=== PATIENT | female | born 1940 | race Caucasian/White ===

== ENCOUNTER 2018-06-13 17:37 | Inpatient (IN) | payer MEDICARE, MEDICAID ==
[2018-06-13 19:16] LABS: % BASOPHILS 0.2 % (0.0-2.0); % EOSINOPHILS 0.7 % (0.0-5.0); % MONOCYTES 6.2 % (2.0-10.0); % NEUTROPHILS 67.9 % (40.0-80.0); HEMATOCRIT 42.1 % (41.0-60); HEMOGLOBIN 13.8 gm/dL (12-16); LYMPHOCYTE ABSOLUTE 1.8 Th/cmm (1.5-3.0); MEAN CELL VOLUME 94.1 fl (81-100); MEAN CORPUSCULAR HEMOGLOBIN 30.7 pg (27.0-31.0); MEAN CORPUSCULAR HGB CONC 32.6 pg (28.0-36.0); MEAN PLATELET VOLUME 8.4 fl; MONOCYTE ABSOLUTE 0.4 Th/cmm (0.3-1.0); NEUTROPHILE ABSOLUTE 4.9 Th/cmm (1.8-8.0); PLATELET COUNT 212 Th/cmm (150-400); RED BLOOD COUNT 4.48 Mil/cmm (3.80-5.20); RED CELL DISTRIBUTION WIDTH 12.2 % (11.5-20.0); WHITE BLOOD COUNT 7.1 Th/cmm (4.8-10.8)
--- NOTE | 2018-06-13 19:23 | ED Physician Chart ---
ED Chief Complaint/HPI - Patient Information Date Seen:: 06/13/18 Time Seen:: 18:17 Chief Complaint:: failure to thrive, refuses care & meds History of Present Illness:: failure to thrive, refuses care & meds for 6 months. Allergies:: Allergies Allergy/AdvReac Type Severity Reaction Status Date / Time Penicillins Allergy Unknown Verified 06/13/18 18:16 Vitals:: Vital Signs - 8 hr 06/13/18 18:17 Temp 98.5 F HR 66 RR 18 BP 172/106 O2 Sat % 99 Historian:: Family Member Review:: Nurse's Note Reviewed ED Review of Systems - Review of Systems General/Constitutional: No fever, No chills, Weakness, No diaphoresis, Loss of appetite, Other (smell of extremely poor hygiene) Skin: No skin lesions, No rash, No bruising Head: No headache, No light-headedness Eyes: No loss of vision, No pain, No diplopia ENT: No earache, No nasal drainage, No sore throat, No tinnitus Neck: No neck pain, No swelling, No thyromegaly, No stiffness, No mass noted Cardio Vascular: No chest pain, No palpitations, No PND, No orthopnea, No edema Pulmonary: No SOB, No cough, No sputum, No wheezing GI: No nausea, No vomiting, No diarrhea, No pain, No melena, No hematochezia, No constipation, No hematemesis G/U: No dysuria, No frequency, No hematuria Musculoskeletal: No bone or joint pain, No back pain, No muscle pain Endocrine: No polyuria, No polydipsia Psychiatric: Prior psych history, No depression, No anxiety, No suicidal ideation Hematopoietic: No bruising, No lymphadenopathy Allergic/Immuno: No urticaria, No angioedema Neurological: No syncope, No focal symptoms, No weakness, No paresthesia, No headache, No seizure, No dizziness, No confusion, No vertigo ED Past Medical History - Past Medical History Obtainable: No Past Medical History: HTN, DM, Dementia, Other (Alzheimer's) Family Medical History - Family Member Mother History Unknown: Yes ED Physical Exam - Physical Examination General/Constitutional: Awake Other Gen/Cons comments:: thin. very heavy smell of poor hygiene. agitated. Had to be given Ativan 1 mg IM before she could be examined. ENTIRE EXAM LIMITED BY FACT THAT THE PATIENT DID NOT ALLOW THE SEVERAL LAYERS OF CLOTHING TO BE REMOVED. Head: Atraumatic Eyes: Lids, conjuctiva normal, PERRL, EOMI Skin: Nl inspection ENMT: External ears, nose nl Neck: Nontender, No nuchal rigidity, No stridor Respiratory: Nl effort/Exclusion, Clear to Auscultation, No Wheeze/Rhonchi/Rales Cardio Vascular: RRR, No murmur, gallop, rubs, NL S1 S2 GI: No tenderness/rebounding/guarding, No organomegaly, No hernia, Normal BS's, Nondistended, No mass/bruits, No McBurney tenderness : No CVA tenderness Extremities: No tenderness or effusion, Full ROM, normal strength in all extremities, No edema, Normal digits & nails Neuro/Psych: Alert/oriented, Normal sensory exam, Normal motor strength, No focal deficits Misc: Normal back, No paraspinal tenderness ED Labs/Radiology/EKG Results - Lab Results Results: Laboratory Tests 06/13/18 19:11 WBC 7.1 RBC 4.48 Hgb 13.8 Hct 42.1 MCV 94.1 MCH 30.7 MCHC Differential 32.6 RDW 12.2 Plt Count 212 MPV 8.4 Neutrophils % 67.9 Lymphocytes % 25.0 Monocytes % 6.2 Eosinophils % 0.7 Basophils % 0.2 ED Assessment - Assessment General Assessment: ENTIRE EXAM LIMITED BY FACT THAT THE PATIENT DID NOT ALLOW THE SEVERAL LAYERS OF CLOTHING TO BE REMOVED. SIGN OUT GIVEN TO DR. MARCUS AT 7:15 P.M. ED Septic Shock - . Is Septic Shock (SBP<90, OR Lactate>4 mmol\L) present?: No - <6hrs of presentation: Vital Signs: Vital Signs - 8 hr 06/13/18 18:17 Temp 98.5 F HR 66 RR 18 BP 172/106 O2 Sat % 99 ED Reassessment (Disposition) - Reassessment Reassessment Condition:: Unchanged - Diagnosis Diagnosis:: Failure to thrive Dementia Alzheimer's
[2018-06-13 19:30] LABS: ALB/GLOB RATIO 1.8 (1.0-1.8); ALKALINE PHOSPHATASE 81 U/L (34-104); ANION GAP 10.3 (7.0-16.0); BILIRUBIN,TOTAL 0.5 mg/dL (0.3-1.0); BUN - UREA NITROGEN 15 mg/dL (7-25); CARBON DIOXIDE 30.1 mEq/L (21.0-31.0); CHLORIDE 102 mEq/L (98-107); CREATININE - SERUM 0.6 mg/dL (0.6-1.2); GLUCOSE 142 mg/dL (70-105); MAGNESIUM 2.1 mg/dL (1.9-2.7); PHOSPHOROUS 3.2 mg/dL (2.5-5.0); POTASSIUM SERUM 3.4 mEq/L (3.5-5.1); SGOT 12 U/L (13-39); SGPT/ALT 7 U/L (7-52); SODIUM SERUM 139 mEq/L (136-145); TOTAL PROTEIN,SERUM 6.2 gm/dL (6.0-8.3)
[2018-06-13 23:13] VITALS: BP 151/73
[2018-06-13] MEDS ORDERED: Magnesium Hydroxide (MOM) 30 mL UDC PO PRN (23:31)
[2018-06-13] MEDS ORDERED: Maalox 30 mL Cup PO PRN (23:31)
[2018-06-14 07:29] LABS: CHOLESTEROL 217 mg/dL (<200); HDL -HIGH DENSITY LIPOPROTEIN 56 mg/dL (23-92); TRIGLYCERIDES 149 mg/dL (<150)
[2018-06-14] MEDS: Aspirin 81mg Chewable Tab PO SCH (09:34)
--- NOTE | 2018-06-14 13:04 | Internal Medicine Prog Note ---
Internal Medicine Subjective - Subjective Service Date: 06/14/18 Patient seen and examined:: chart reviewed Patient is:: awake, verbal, confused Per staff patient has:: no adverse event, refusing care Internal Medicine Objective - Results Result Diagrams: 06/13/18 19:11 06/13/18 19:11 Recent Labs: Laboratory Last Values WBC 7.1 Th/cmm (4.8-10.8) 06/13/18 19: RBC 4.48 Mil/cmm (3.80-5.20) 06/13/18 19:11 Hgb 13.8 gm/dL (12-16) 06/13/18 19:11 Hct 42.1 % (41.0-60) 06/13/18 19:11 MCV 94.1 fl (81-100) 06/13/18 19:11 MCH 30.7 pg (27.0-31.0) 06/13/18: MCHC Differential 32.6 pg (28.0-36.0) 06/13/18 19:11 RDW 12.2 % (11.5-20.0) 06/13/18 19:11 Plt Count 212 Th/cmm (150-400) 06/13/18 19:11 MPV 8.4 fl 06/13/18 19:11 Neutrophils % 67.9 % (40.0-80.0) 06/13/18 19:11 Lymphocytes % 25.0 % (20.0-50.0) 06/13/18: Monocytes % 6.2 % (2.0-10.0) 06/13/18: Eosinophils % 0.7 % (0.0-5.0) 06/13/18 19: Basophils % 0.2 % (0.0-2.0) 06/13/18 19:11 Sodium 139 mEq/L (136-145) 06/13/18 19:11 Potassium 3.4 mEq/L (3.5-5.1) L 06/13/18 19:11 Chloride 102 mEq/L (98-107) 06/13/18 19:11 Carbon Dioxide 30.1 mEq/L (21.0-31.0) 06/13/18 19: Anion Gap 10.3 (7.0-16.0) 06/13/18 19:11 BUN 15 mg/dL (7-25) 06/13/18 19:11 Creatinine 0.6 mg/dL (0.6-1.2) 06/13/18 19:11 Est GFR ( Amer) TNP 06/13/18 19:11 Est GFR (Non-Af Amer) TNP 06/13/18 19:11 BUN/Creatinine Ratio 25.0 06/13/18 19:11 Glucose 142 mg/dL (70-105) H 06/13/18 19:11 Calcium 9.0 mg/dL (8.6-10.3) 06/13/18 19:11 Phosphorus 3.2 mg/dL (2.5-5.0) 06/13/18 19:11 Magnesium 2.1 mg/dL (1.9-2.7) 06/13/18 19:11 Total Bilirubin 0.5 mg/dL (0.3-1.0) 06/13/18 19:11 AST 12 U/L (13-39) L 06/13/18 19:11 ALT 7 U/L (7-52) 06/13/18 19:11 Alkaline Phosphatase 81 U/L (34-104) 06/13/18 19:11 Total Protein 6.2 gm/dL (6.0-8.3) 06/13/18 19:11 Albumin 4.0 gm/dL (3.7-5.3) 06/13/18 19:11 Globulin 2.2 gm/dL 06/13/18 19:11 Albumin/Globulin Ratio 1.8 (1.0-1.8) 06/13/18 19:11 Triglycerides 149 mg/dL (<150) 06/14/18 06:50 Cholesterol 217 mg/dL (<200) H 06/14/18 06:50 LDL Cholesterol Direct 143 mg/dL (75-193) 06/14/18 06:50 HDL Cholesterol 56 mg/dL (23-92) 06/14/18 06:50 TSH 0.79 uIU/ml (0.34-5.60) 06/13/18 19:11 - Physical Exam Vitals and I&O: Vital Signs Temp 98.3 F 06/14/18 08:00 Pulse 77 06/14/18 09:34 Resp 18 06/14/18 08:00 BP 152/97 06/14/18 09:34 Pulse Ox 99 06/14/18 08:00 Intake & Output 06/13/18 06/14/18 06/14/18 18:59 06:59 18:59 Intake Total 60 Balance 60 Weight (lbs) 56.699 kg Intake: Oral 60 Other: # Voids 1 # Bowel Movements 0 Weight Source Estimated Active Medications: Current Medications Acetaminophen (Tylenol) 650 mg PO Q4HR PRN PRN Reason: Mild Pain / Temp above 100 Stop: 08/12/18 23:30 Al Hydrox/Mg Hydrox/Simethicone (Maalox) 30 ml PO Q4HR PRN PRN Reason: GI DISTRESS Stop: 08/12/18 23:30 Aspirin (Aspirin Chewable) 81 mg PO DAILY [facility] Stop: 08/13/18 08:59 Clopidogrel Bisulfate (Plavix) 75 mg PO DAILY [facility] Stop: 08/13/18 08:59 Last Admin: 06/14/18 09:34 Dose: 75 mg Donepezil HCl (Aricept) 10 mg PO DAILY [facility] Stop: 08/13/18 08:59 Last Admin: 06/14/18 09:35 Dose: 10 mg Hydrochlorothiazide (Hctz) 25 mg PO DAILY [facility] Stop: 08/13/18 08:59 Last Admin: 06/14/18 09:34 Dose: 25 mg Lisinopril (Zestril) 10 mg PO DAILY [facility] Stop: 08/13/18 08:59 Last Admin: 06/14/18 09:34 Dose: 10 mg Lorazepam (Ativan) 0.5 mg PO Q4HR PRN; Protocol PRN Reason: Agitation Stop: 07/13/18 23:30 Lorazepam (Ativan) 0.5 mg PO DAILY [facility]; Protocol Stop: 08/13/18 08:59 Last Admin: 06/14/18 09:34 Dose: 0.5 mg Magnesium Hydroxide (Milk Of Magnesia) 30 ml PO HS PRN PRN Reason: Constipation Metformin HCl (Glucophage) 500 mg PO BIDWM [facility] Stop: 08/13/18 07:59 Last Admin: 06/14/18 09:00 Dose: 500 mg Simvastatin (Zocor) 20 mg PO DAILY [facility]; Protocol Stop: 08/13/18 08:59 Last Admin: 06/14/18 09:35 Dose: 20 mg Zolpidem Tartrate (Ambien) 5 mg PO HSMR1 PRN PRN Reason: Insomnia Stop: 08/12/18 23:30 General: demented, thin HEENT: PERRLA Neck: Supple, No JVD Cardiovascular: Normal S1, Normal S2 Abdomen: soft, non-tender Extremities: clear Neurological: other (Altered mental Status.) Internal Medicine Assmt/Plan - Assessment Assessment: Internal Medicine Consult Margareth Rucker : 1940 Admit date: 06/13/2018 Date: 06/14/2018 REASON FOR CONSULTATION Patients current complaint is Failure to thrive. Patient has refused care for 6 months. Patient has history of Hypertension, Diabetes, Dementia and Alzheimer s Disease. HISTORY OF PRESENT ILLNESS 78 y/o female patient was admitted to [facility] due to Failure to thrive. Patient has history of Hypertension, Diabetes, Dementia and Alzheimers Disease. Patient was diagnosed with Failure to thrive, Hypertension , Diabetes, Dementia and Alzheimers Disease. Patient will be followed by Dr. Santana and a complete workup will be done. Patient will be treated and monitored. Patient was transferred here on June 13, 2018 for further care management. Review of systems Vitals: Reviewed. General: Normotensive, in no acute distress. Head: Normocephalic, no lesions. Eyes: PERRLA, EOM'S full, conjunctive clear, fundi grossly normal. Neck: Supple, no masses, no thyromegaly, no bruits. Lungs: Clear, no rales, no rhonchi, no wheezes. Heart: RR, no murmurs, no rubs, no gallops. Abdomen: Soft, no tenderness, no masses, BS normal. Musculoskeletal: No joint pain, No edema noted. Psych: Altered Mental Status; Hx of Dementia. Skin: No rash or skin lesions noted. Neurological: Denies headache and loss of consciousness. Past medical history Hypertension, Diabetes, Dementia and Alzheimers Disease. Past surgical history Noncontributory. Medications Please refer to medication reconciliation sheet. Allergies Allergic to Penicillin. Family history Noncontributory. Social history Nonsmoker, No Alcohol use, No drug abuse. Physical Exam- HEENT: Head is normocephalic, atraumatic. NECK: Supple. No JVD. No carotid bruit. CHEST: Bilateral breath sounds. No crackles. No wheezing. HEART: S1, S2 within normal limits. Regular rhythm. No murmur. No gallop. ABDOMEN: soft, non-tender, non-distended. Bowel sounds present. EXTREMITIES: No joint enlargement, No swelling or tenderness. NEUROLOGIC: Altered Mental Status, hx of Dementia. Assessment and Impression Failure to thrive. Hypertension. Diabetes. Dementia. Alzheimers Disease. Plan Continuation of care Continue present meds as directed Monitor vitals, continue B/P meds Accu-check daily, continue DM meds Monitor Diet/Nutritional support Monitor mental status progression Monitor behavioral health status Fall precaution Safety precaution Supportive care Will Monitor patient and continue current treatment plan as ordered. - Plan Plan: Continuation of care Continue present meds as directed Monitor vitals, continue B/P meds Accu-check daily, continue DM meds Monitor Diet/Nutritional support Monitor mental status progression Monitor behavioral health status Fall precaution Safety precaution Supportive care Will Monitor patient and continue current treatment plan as ordered.
--- NOTE | 2018-06-14 14:06 | History and Physical ---
History of Present Illness - HPI Chief Complaint: Failure to thrive. HPI: MERY MORENO MD HISTORY AND PHYSICAL Margareth Rucker : 1940 Admit date: 06/13/2018 Date: 06/14/2018 Chief Complaint Patients current complaint is Failure to thrive. Patient has refused care for 6 months. Patient has history of Hypertension, Diabetes, Dementia and Alzheimer s Disease. History of Present illness 78 y/o female patient was admitted to [facility] due to Failure to thrive. Patient has history of Hypertension, Diabetes, Dementia and Alzheimers Disease. Patient was diagnosed with Failure to thrive, Hypertension , Diabetes, Dementia and Alzheimers Disease. I will follow patient and patient will have a consult with Dr. Santana. Patient will have a complete workup done. Patient will be treated and monitored. Patient was transferred here on June 13, 2018 for further care management. Review of systems Vitals: Reviewed. General: Normotensive, in no acute distress. Head: Normocephalic, no lesions. Eyes: PERRLA, EOM'S full, conjunctive clear, fundi grossly normal. Neck: Supple, no masses, no thyromegaly, no bruits. Lungs: Clear, no rales, no rhonchi, no wheezes. Heart: RR, no murmurs, no rubs, no gallops. Abdomen: Soft, no tenderness, no masses, BS normal. Musculoskeletal: No joint pain, No edema noted. Psych: Altered Mental Status; Hx of Dementia. Skin: No rash or skin lesions noted. Neurological: Denies headache and loss of consciousness. Past medical history Hypertension, Diabetes, Dementia and Alzheimers Disease. Past surgical history Noncontributory. Medications Please refer to medication reconciliation sheet. Allergies Allergic to Penicillin. Family history Noncontributory. Social history Nonsmoker, No Alcohol use, No drug abuse. Physical Exam- HEENT: Head is normocephalic, atraumatic. NECK: Supple. No JVD. No carotid bruit. CHEST: Bilateral breath sounds. No crackles. No wheezing. HEART: S1, S2 within normal limits. Regular rhythm. No murmur. No gallop. ABDOMEN: soft, non-tender, non-distended. Bowel sounds present. EXTREMITIES: No joint enlargement, No swelling or tenderness. NEUROLOGIC: Altered Mental Status, hx of Dementia. Assessment and Impression Failure to thrive. Hypertension. Diabetes. Dementia. Alzheimers Disease. Plan Continuation of care Continue present meds as directed Monitor vitals, continue B/P meds Accu-check daily, continue DM meds Monitor Diet/Nutritional support Monitor mental status progression Monitor behavioral health status Fall precaution Safety precaution Supportive care Will Monitor patient and continue current treatment plan as ordered. Vital Signs: Last Vital Signs Temp 98.3 F 06/14/18 08:00 Pulse 77 06/14/18 09:34 Resp 18 06/14/18 08:00 BP 152/97 06/14/18 09:34 Pulse Ox 99 06/14/18 08:00 Past Medical History Cardiovascular: Report: HTN Pulmonary: Report: No Pertinent Hx [employer]: Report: Dementia Psych: Report: Other (Alzheimer's disease.) Musculoskeletal: Report: No Pain Rheumatologic: Report: No pertinent Hx Infectious Disease: Report: No Pertinent Hx Renal/: Report: No Pertinent Hx Endocrine: Report: Diabetes Dermatology: Report: No Pertinent Hx - Past Surgical History Past Surgical History: No pertinent Hx Family Medical History - Family Member Mother History Unknown: Yes Ethnicity: Unknown Living Status: Unknown - Medications Home Medications: Home Medication Medication Instructions Recorded Type Aspirin 81 mg PO DAILY 06/13/18 History Clopidogrel [Plavix] 75 mg PO DAILY 06/13/18 History Donepezil Hcl [Aricept] 10 mg PO DAILY 06/13/18 History Hydrochlorothiazide [Hctz*] 25 mg PO DAILY 06/13/18 History Lisinopril 10 mg PO DAILY 06/13/18 History Lorazepam [Ativan] 0.5 mg PO DAILY 06/13/18 History Simvastatin [Zocor] 20 mg PO DAILY 06/13/18 History metFORMIN [Glucophage] 500 mg PO BID 06/13/18 History - Allergies Allergies/Adverse Reactions: Allergies Allergy/AdvReac Type Severity Reaction Status Date / Time Penicillins Allergy Unknown Verified 06/13/18 18:16 Physical Exam - Physical Exam HEENT: Report: Pharnyx within normal limits Neck: Report: Within normal limits Cardiovascular Systems: Report: Regular, Rate and Rhythm Respiratory: Report: Breath Sounds are within normal limits Abdomen: Report: Non-tender to palpation Back: Report: Inspection of back is within normal limits. Extremities: Report: Non-tender to palpation. Skin: Report: Color of skin is within normal limits Neuro/Psych: Report: Disoriented to name time or place - Lab Results All Lab Results last 24 hours: Laboratory Results - last 24 hr 06/13/18 06/13/18 06/13/18 19:11 19:11 19:11 WBC 7.1 RBC 4.48 Hgb 13.8 Hct 42.1 MCV 94.1 MCH 30.7 MCHC Differential 32.6 RDW 12.2 Plt Count 212 MPV 8.4 Neutrophils % 67.9 Lymphocytes % 25.0 Monocytes % 6.2 Eosinophils % 0.7 Basophils % 0.2 Sodium 139 Potassium 3.4 L Chloride 102 Carbon Dioxide 30.1 Anion Gap 10.3 BUN 15 Creatinine 0.6 Est GFR ( Amer) TNP Est GFR (Non-Af Amer) TNP BUN/Creatinine Ratio 25.0 Glucose 142 H Calcium 9.0 Phosphorus 3.2 Magnesium 2.1 Total Bilirubin 0.5 AST 12 L ALT 7 Alkaline Phosphatase 81 Total Protein 6.2 Albumin 4.0 Globulin 2.2 Albumin/Globulin Ratio 1.8 Triglycerides Cholesterol LDL Cholesterol Direct HDL Cholesterol TSH 0.79 06/14/18 06:50 WBC RBC Hgb Hct MCV MCH MCHC Differential RDW Plt Count MPV Neutrophils % Lymphocytes % Monocytes % Eosinophils % Basophils % Sodium Potassium Chloride Carbon Dioxide Anion Gap BUN Creatinine Est GFR ( Amer) Est GFR (Non-Af Amer) BUN/Creatinine Ratio Glucose Calcium Phosphorus Magnesium Total Bilirubin AST ALT Alkaline Phosphatase Total Protein Albumin Globulin Albumin/Globulin Ratio Triglycerides 149 Cholesterol 217 H LDL Cholesterol Direct 143 HDL Cholesterol 56 TSH - Plan Plan: Continuation of care Continue present meds as directed Monitor vitals, continue B/P meds Accu-check daily, continue DM meds Monitor Diet/Nutritional support Monitor mental status progression Monitor behavioral health status Fall precaution Safety precaution Supportive care Will Monitor patient and continue current treatment plan as ordered.
--- NOTE | 2018-06-14 14:40 | History and Physical ---
History of Present Illness - HPI Vital Signs: Last Vital Signs Temp 98.3 F 06/14/18 08:00 Pulse 77 06/14/18 09:34 Resp 18 06/14/18 08:00 BP 152/97 06/14/18 09:34 Pulse Ox 99 06/14/18 08:00 Family Medical History - Family Member Mother History Unknown: Yes Ethnicity: Unknown Living Status: Unknown - Medications Home Medications: Home Medication Medication Instructions Recorded Type Aspirin 81 mg PO DAILY 06/13/18 History Clopidogrel [Plavix] 75 mg PO DAILY 06/13/18 History Donepezil Hcl [Aricept] 10 mg PO DAILY 06/13/18 History Hydrochlorothiazide [Hctz*] 25 mg PO DAILY 06/13/18 History Lisinopril 10 mg PO DAILY 06/13/18 History Lorazepam [Ativan] 0.5 mg PO DAILY 06/13/18 History Simvastatin [Zocor] 20 mg PO DAILY 06/13/18 History metFORMIN [Glucophage] 500 mg PO BID 06/13/18 History - Allergies Allergies/Adverse Reactions: Allergies Allergy/AdvReac Type Severity Reaction Status Date / Time Penicillins Allergy Unknown Verified 06/13/18 18:16 - Lab Results All Lab Results last 24 hours: Laboratory Results - last 24 hr 06/13/18 06/13/18 06/13/18 19:11 19:11 19:11 WBC 7.1 RBC 4.48 Hgb 13.8 Hct 42.1 MCV 94.1 MCH 30.7 MCHC Differential 32.6 RDW 12.2 Plt Count 212 MPV 8.4 Neutrophils % 67.9 Lymphocytes % 25.0 Monocytes % 6.2 Eosinophils % 0.7 Basophils % 0.2 Sodium 139 Potassium 3.4 L Chloride 102 Carbon Dioxide 30.1 Anion Gap 10.3 BUN 15 Creatinine 0.6 Est GFR ( Amer) TNP Est GFR (Non-Af Amer) TNP BUN/Creatinine Ratio 25.0 Glucose 142 H Calcium 9.0 Phosphorus 3.2 Magnesium 2.1 Total Bilirubin 0.5 AST 12 L ALT 7 Alkaline Phosphatase 81 Total Protein 6.2 Albumin 4.0 Globulin 2.2 Albumin/Globulin Ratio 1.8 Triglycerides Cholesterol LDL Cholesterol Direct HDL Cholesterol TSH 0.79 06/14/18 06:50 WBC RBC Hgb Hct MCV MCH MCHC Differential RDW Plt Count MPV Neutrophils % Lymphocytes % Monocytes % Eosinophils % Basophils % Sodium Potassium Chloride Carbon Dioxide Anion Gap BUN Creatinine Est GFR ( Amer) Est GFR (Non-Af Amer) BUN/Creatinine Ratio Glucose Calcium Phosphorus Magnesium Total Bilirubin AST ALT Alkaline Phosphatase Total Protein Albumin Globulin Albumin/Globulin Ratio Triglycerides 149 Cholesterol 217 H LDL Cholesterol Direct 143 HDL Cholesterol 56 TSH - Assessment Assessment: Internal Medicine Consult Margareth Rucker : 1940 Admit date: 06/13/2018 Date: 06/14/2018 REASON FOR CONSULTATION Patients current complaint is Failure to thrive. Patient has refused care for 6 months. Patient has history of Hypertension, Diabetes, Dementia and Alzheimer s Disease. HISTORY OF PRESENT ILLNESS 78 y/o female patient was admitted to [facility] due to Failure to thrive. Patient has history of Hypertension, Diabetes, Dementia and Alzheimers Disease. Patient was diagnosed with Failure to thrive, Hypertension , Diabetes, Dementia and Alzheimers Disease. Patient will be followed by Dr. Santana and a complete workup will be done. Patient will be treated and monitored. Patient was transferred here on June 13, 2018 for further care management. Review of systems Vitals: Reviewed. General: Normotensive, in no acute distress. Head: Normocephalic, no lesions. Eyes: PERRLA, EOM'S full, conjunctive clear, fundi grossly normal. Neck: Supple, no masses, no thyromegaly, no bruits. Lungs: Clear, no rales, no rhonchi, no wheezes. Heart: RR, no murmurs, no rubs, no gallops. Abdomen: Soft, no tenderness, no masses, BS normal. Musculoskeletal: No joint pain, No edema noted. Psych: Altered Mental Status; Hx of Dementia. Skin: No rash or skin lesions noted. Neurological: Denies headache and loss of consciousness. Past medical history Hypertension, Diabetes, Dementia and Alzheimers Disease. Past surgical history Noncontributory. Medications Please refer to medication reconciliation sheet. Allergies Allergic to Penicillin. Family history Noncontributory. Social history Nonsmoker, No Alcohol use, No drug abuse. Physical Exam- HEENT: Head is normocephalic, atraumatic. NECK: Supple. No JVD. No carotid bruit. CHEST: Bilateral breath sounds. No crackles. No wheezing. HEART: S1, S2 within normal limits. Regular rhythm. No murmur. No gallop. ABDOMEN: soft, non-tender, non-distended. Bowel sounds present. EXTREMITIES: No joint enlargement, No swelling or tenderness. NEUROLOGIC: Altered Mental Status, hx of Dementia. Assessment and Impression Failure to thrive. Hypertension. Diabetes. Dementia. Alzheimers Disease. Plan Continuation of care Continue present meds as directed Monitor vitals, continue B/P meds Accu-check daily, continue DM meds Monitor Diet/Nutritional support Monitor mental status progression Monitor behavioral health status Fall precaution Safety precaution Supportive care Will Monitor patient and continue current treatment plan as ordered. - Plan Plan: Continuation of care Continue present meds as directed Monitor vitals, continue B/P meds Accu-check daily, continue DM meds Monitor Diet/Nutritional support Monitor mental status progression Monitor behavioral health status Fall precaution Safety precaution Supportive care Will Monitor patient and continue current treatment plan as ordered.
--- NOTE | 2018-06-14 16:22 | History and Physical ---
History of Present Illness - HPI Chief Complaint: DEPRESSION HPI: This is a 78-year old female who is admitted to the geropysch unit due to failure to thrive and depression Vital Signs: Last Vital Signs Temp 98.3 F 06/14/18 08:00 Pulse 77 06/14/18 09:34 Resp 18 06/14/18 08:00 BP 152/97 06/14/18 09:34 Pulse Ox 99 06/14/18 08:00 Past Medical History Other History: HTN, DM, Dementia, Alzheimer's Family Medical History - Family Member Mother History Unknown: Yes Ethnicity: Unknown Living Status: Unknown Social History Smoke: No Alcohol: None Drugs: None Lives: Other (home) - Medications Home Medications: Home Medication Medication Instructions Recorded Type Aspirin 81 mg PO DAILY 06/13/18 History Clopidogrel [Plavix] 75 mg PO DAILY 06/13/18 History Donepezil Hcl [Aricept] 10 mg PO DAILY 06/13/18 History Hydrochlorothiazide [Hctz*] 25 mg PO DAILY 06/13/18 History Lisinopril 10 mg PO DAILY 06/13/18 History Lorazepam [Ativan] 0.5 mg PO DAILY 06/13/18 History Simvastatin [Zocor] 20 mg PO DAILY 06/13/18 History metFORMIN [Glucophage] 500 mg PO BID 06/13/18 History - Allergies Allergies/Adverse Reactions: Allergies Allergy/AdvReac Type Severity Reaction Status Date / Time Penicillins Allergy Unknown Verified 06/13/18 18:16 Review of Systems - Review of Systems Constitutional: Report: No Significant Eyes: Report: No Significant ENT: Report: No Significant Respiratory: Report: No Significant Cardiovascular: Report: No Significant Gastrointestinal: Report: No Significant Neurological: Report: No Significant Physical Exam - Physical Exam HEENT: Report: Ears Nose Throat within normal limits Neck: Report: Within normal limits Cardiovascular Systems: Report: +s1/s2 noted, Regular, Rate and Rhythm Respiratory: Report: Breath Sounds are within normal limits Abdomen: Report: Non-tender to palpation Back: Report: Inspection of back is within normal limits. Skin: Report: Color of skin is within normal limits, Warm, Dry Neuro/Psych: Report: Mood affect is within normal limits - Lab Results All Lab Results last 24 hours: Laboratory Results - last 24 hr 06/13/18 06/13/18 06/13/18 19:11 19:11 19:11 WBC 7.1 RBC 4.48 Hgb 13.8 Hct 42.1 MCV 94.1 MCH 30.7 MCHC Differential 32.6 RDW 12.2 Plt Count 212 MPV 8.4 Neutrophils % 67.9 Lymphocytes % 25.0 Monocytes % 6.2 Eosinophils % 0.7 Basophils % 0.2 Sodium 139 Potassium 3.4 L Chloride 102 Carbon Dioxide 30.1 Anion Gap 10.3 BUN 15 Creatinine 0.6 Est GFR ( Amer) TNP Est GFR (Non-Af Amer) TNP BUN/Creatinine Ratio 25.0 Glucose 142 H Calcium 9.0 Phosphorus 3.2 Magnesium 2.1 Total Bilirubin 0.5 AST 12 L ALT 7 Alkaline Phosphatase 81 Total Protein 6.2 Albumin 4.0 Globulin 2.2 Albumin/Globulin Ratio 1.8 Triglycerides Cholesterol LDL Cholesterol Direct HDL Cholesterol TSH 0.79 06/14/18 06:50 WBC RBC Hgb Hct MCV MCH MCHC Differential RDW Plt Count MPV Neutrophils % Lymphocytes % Monocytes % Eosinophils % Basophils % Sodium Potassium Chloride Carbon Dioxide Anion Gap BUN Creatinine Est GFR ( Amer) Est GFR (Non-Af Amer) BUN/Creatinine Ratio Glucose Calcium Phosphorus Magnesium Total Bilirubin AST ALT Alkaline Phosphatase Total Protein Albumin Globulin Albumin/Globulin Ratio Triglycerides 149 Cholesterol 217 H LDL Cholesterol Direct 143 HDL Cholesterol 56 TSH - Assessment Assessment: htn dm2 dementia alzhiemer's - Plan Plan: monitor glucose closely fall precautions continue current orders
[2018-06-15] MEDS: Aspirin 81mg Chewable Tab PO SCH (09:00)
--- NOTE | 2018-06-15 11:37 | Internal Medicine Prog Note ---
Internal Medicine Subjective - Subjective Service Date: 06/15/18 Patient seen and examined:: chart reviewed Patient is:: awake, verbal, confused Per staff patient has:: no adverse event, no episodes of fall, confused Internal Medicine Objective - Results Result Diagrams: 06/13/18 19:11 06/13/18 19: Recent Labs: Laboratory Last Values WBC 7.1 Th/cmm (4.8-10.8) 06/13/18 19: RBC 4.48 Mil/cmm (3.80-5.20) 06/13/18 19:11 Hgb 13.8 gm/dL (12-16) 06/13/18 19:11 Hct 42.1 % (41.0-60) 06/13/18:11 MCV 94.1 fl (81-100) 06/13/18 19:11 MCH 30.7 pg (27.0-31.0) 06/13/18: MCHC Differential 32.6 pg (28.0-36.0) 06/13/18 19: RDW 12.2 % (11.5-20.0) 06/13/18 19:11 Plt Count 212 Th/cmm (150-400) 06/13/18 19:11 MPV 8.4 fl 06/13/18 19:11 Neutrophils % 67.9 % (40.0-80.0) 06/13/18:11 Lymphocytes % 25.0 % (20.0-50.0) 06/13/18: Monocytes % 6.2 % (2.0-10.0) 06/13/18: Eosinophils % 0.7 % (0.0-5.0) 06/13/18 19: Basophils % 0.2 % (0.0-2.0) 06/13/18 19:11 Sodium 139 mEq/L (136-145) 06/13/18 19:11 Potassium 3.4 mEq/L (3.5-5.1) L 06/13/18 19:11 Chloride 102 mEq/L (98-107) 06/13/18 19:11 Carbon Dioxide 30.1 mEq/L (21.0-31.0) 06/13/18 19: Anion Gap 10.3 (7.0-16.0) 06/13/18 19:11 BUN 15 mg/dL (7-25) 06/13/18 19:11 Creatinine 0.6 mg/dL (0.6-1.2) 06/13/18 19:11 Est GFR ( Amer) TNP 06/13/18 19:11 Est GFR (Non-Af Amer) TNP 06/13/18 19:11 BUN/Creatinine Ratio 25.0 06/13/18 19:11 Glucose 142 mg/dL (70-105) H 06/13/18 19:11 Calcium 9.0 mg/dL (8.6-10.3) 06/13/18 19:11 Phosphorus 3.2 mg/dL (2.5-5.0) 06/13/18 19:11 Magnesium 2.1 mg/dL (1.9-2.7) 06/13/18 19:11 Total Bilirubin 0.5 mg/dL (0.3-1.0) 06/13/18 19:11 AST 12 U/L (13-39) L 06/13/18 19:11 ALT 7 U/L (7-52) 06/13/18 19:11 Alkaline Phosphatase 81 U/L (34-104) 06/13/18 19:11 Total Protein 6.2 gm/dL (6.0-8.3) 06/13/18 19:11 Albumin 4.0 gm/dL (3.7-5.3) 06/13/18 19:11 Globulin 2.2 gm/dL 06/13/18 19:11 Albumin/Globulin Ratio 1.8 (1.0-1.8) 06/13/18 19:11 Triglycerides 149 mg/dL (<150) 06/14/18 06:50 Cholesterol 217 mg/dL (<200) H 06/14/18 06:50 LDL Cholesterol Direct 143 mg/dL (75-193) 06/14/18 06:50 HDL Cholesterol 56 mg/dL (23-92) 06/14/18 06:50 TSH 0.79 uIU/ml (0.34-5.60) 06/13/18 19:11 - Physical Exam Vitals and I&O: Vital Signs Temp 98.1 F 06/15/18 06:33 Pulse 89 06/15/18 06:33 Resp 20 06/15/18 06:33 BP 156/65 06/15/18 06:33 Pulse Ox 95 06/15/18 06:33 Intake & Output 06/14/18 06/15/18 06/15/18 18:59 06:59 18:59 Intake Total 240 Balance 240 Intake: Oral 240 Other: # Voids 3 # Bowel Movements 0 Active Medications: Current Medications Acetaminophen (Tylenol) 650 mg PO Q4HR PRN PRN Reason: Mild Pain / Temp above 100 Stop: 08/12/18 23:30 Al Hydrox/Mg Hydrox/Simethicone (Maalox) 30 ml PO Q4HR PRN PRN Reason: GI DISTRESS Stop: 08/12/18 23:30 Aspirin (Aspirin Chewable) 81 mg PO DAILY [facility] Stop: 08/13/18 08:59 Last Admin: 06/15/18 09:00 Dose: Not Given Clopidogrel Bisulfate (Plavix) 75 mg PO DAILY [facility] Stop: 08/13/18 08:59 Last Admin: 06/15/18 09:00 Dose: Not Given Donepezil HCl (Aricept) 10 mg PO DAILY [facility] Stop: 08/13/18 08:59 Last Admin: 06/15/18 09:00 Dose: Not Given Hydrochlorothiazide (Hctz) 25 mg PO DAILY [facility] Stop: 08/13/18 08:59 Last Admin: 06/15/18 09:00 Dose: Not Given Lisinopril (Zestril) 10 mg PO DAILY [facility] Stop: 08/13/18 08:59 Last Admin: 06/15/18 09:00 Dose: Not Given Lorazepam (Ativan) 0.5 mg PO Q4HR PRN; Protocol PRN Reason: Agitation Stop: 07/13/18 23:30 Last Admin: 06/15/18 00:22 Dose: 0.5 mg Lorazepam (Ativan) 0.5 mg PO DAILY [facility]; Protocol Stop: 08/13/18 08:59 Last Admin: 06/15/18 09:00 Dose: Not Given Magnesium Hydroxide (Milk Of Magnesia) 30 ml PO HS PRN PRN Reason: Constipation Metformin HCl (Glucophage) 500 mg PO BIDWM [facility] Stop: 08/13/18 07:59 Last Admin: 06/15/18 09:00 Dose: Not Given Mirtazapine (Remeron) 7.5 mg PO HS [facility]; Protocol Stop: 08/13/18 20:59 Last Admin: 06/14/18 20:36 Dose: Not Given Simvastatin (Zocor) 20 mg PO DAILY [facility]; Protocol Stop: 08/13/18 08:59 Last Admin: 06/15/18 09:00 Dose: Not Given Zolpidem Tartrate (Ambien) 5 mg PO HSMR1 PRN PRN Reason: Insomnia Stop: 08/12/18 23:30 Last Admin: 06/14/18 21:54 Dose: 5 mg General: weak, lethargic, demented HEENT: PERRLA Neck: Supple, No JVD Lungs: CTAB Cardiovascular: Normal S1, Normal S2 Abdomen: soft, non-tender Extremities: other (General weakness) Neurological: other (Very dis-oriented and confused.) Internal Medicine Assmt/Plan - Assessment Assessment: Depression Failure to thrive. Hypertension. Diabetes. Dementia. Alzheimers Disease. - Plan Plan: Continuation of care Continue present meds as directed Monitor vitals, continue B/P meds Accu-check daily, continue DM meds Monitor Diet/Nutritional support Monitor mental status progression Monitor behavioral health status Fall precaution Safety precaution Supportive care Will Monitor patient and continue present care management
--- NOTE | 2018-06-15 14:59 | Psychiatric Evaluation ---
DATE OF SERVICE: 06/14/2018 JUSTIFICATION FOR HOSPITALIZATION: Refusing care, refusing medications for six months, failure to thrive. She is compliant, not answering. HISTORY OF PRESENT ILLNESS: A 78-year-old female apparently in the hospital, failure to thrive, refusing care, refusing medications for about 6 months, AO to essentially name only, not knowing where she is or what is going on, does not know the day, the week, the month, just staring blankly, laughing inappropriately for no reason, in a Donna chair, mildly restless. PAST PSYCHIATRIC HISTORY: Advanced dementia. FAMILY HISTORY: Noncontributory. SOCIAL HISTORY: Unclear. Her face sheet, patient is coming in from [facility]. MEDICATIONS: Noted. MENTAL STATUS EXAMINATION: Stated age. Fair eye contact. AO to essentially name, not answering any questions, very confused, disoriented, advanced dementia. Poor insight, poor judgment. PROVISIONAL DIAGNOSES: Advanced dementia. Under medical, please see full H and P. ESTIMATED LENGTH OF STAY: 7-10 days. ASSESSMENT: The patient requiring hospitalization, failure to thrive, refusing some care. PLAN: Continue Aricept dosing. Concerns for an unspecified mood disorder, we will initiate low-dose mirtazapine. CONDITIONS FOR DISCHARGE: Improved mood, improved affect, more amenable to care. [facility]# [id number]
[2018-06-16 09:06] LABS: % EOSINOPHILS 0.2 % (0.0-5.0); % LYMPHOCYTES 8.4 % (20.0-50.0); % MONOCYTES 7.1 % (2.0-10.0); % NEUTROPHILS 83.3 % (40.0-80.0); BASOPHILE ABSOLUTE 0.1 Th/cumm (0-0.2); HEMATOCRIT 47.7 % (41.0-60); HEMOGLOBIN 16.4 gm/dL (12-16); LYMPHOCYTE ABSOLUTE 1.2 Th/cmm (1.5-3.0); MEAN CELL VOLUME 92.5 fl (81-100); MEAN CORPUSCULAR HEMOGLOBIN 31.7 pg (27.0-31.0); MEAN CORPUSCULAR HGB CONC 34.3 pg (28.0-36.0); MEAN PLATELET VOLUME 8.4 fl; NEUTROPHILE ABSOLUTE 12.4 Th/cmm (1.8-8.0); PLATELET COUNT 228 Th/cmm (150-400); RED BLOOD COUNT 5.16 Mil/cmm (3.80-5.20); RED CELL DISTRIBUTION WIDTH 12.2 % (11.5-20.0); WHITE BLOOD COUNT 14.7 Th/cmm (4.8-10.8)
[2018-06-16 09:18] LABS: ALB/GLOB RATIO 1.5 (1.0-1.8); ALBUMIN 4.4 gm/dL (3.7-5.3); ALKALINE PHOSPHATASE 89 U/L (34-104); ANION GAP 11.4 (7.0-16.0); BILIRUBIN,TOTAL 0.9 mg/dL (0.3-1.0); BUN - UREA NITROGEN 16 mg/dL (7-25); CALCIUM SERUM 9.5 mg/dL (8.6-10.3); CARBON DIOXIDE 33.3 mEq/L (21.0-31.0); CHLORIDE 96 mEq/L (98-107); CREATININE - SERUM 0.7 mg/dL (0.6-1.2); GLUCOSE 215 mg/dL (70-105); POTASSIUM SERUM 3.7 mEq/L (3.5-5.1); SGOT 14 U/L (13-39); SGPT/ALT 9 U/L (7-52); SODIUM SERUM 137 mEq/L (136-145); TOTAL PROTEIN,SERUM 7.3 gm/dL (6.0-8.3)
[2018-06-16] MEDS: Aspirin 81mg Chewable Tab PO SCH (09:48)
--- NOTE | 2018-06-16 11:41 | Progress Notes ---
DATE: 06/15/2018 SUBJECTIVE: The patient in the hospital, failure to thrive, refusing care, medications for six months, decompensating. Staff noting she one [id number], anxious, disorganized, not really making much sense. Does not know why she is here or what is going on. The patient was somewhat lethargic this morning, concerns that the nighttime medications may be too high of a dose. The patient with history of advanced dementia. Apparently when the patient came to the hospital, she was trying to bite staff. ASSESSMENT: The patient disoriented, confused. PLAN: We will continue to monitor. Continue dosing of Aricept. The patient may have been over sedated due to the mirtazapine dosing as well. PLAN: We will discontinue the Ambien. The patient remains symptomatic, not safe for a lower level of care. JOB# [id number]
== END 2018-06-16 10:50 | disposition short-term general hospital (02) | DRG 57 ==
LOC: ER 17:37 → GERO 21:19 → GERO2 06-14 21:59 → GERO 06-15 17:57
PROVIDERS: ADMIT Psychiatry & Neurology Psychiatry; ATTEND Psychiatry & Neurology Psychiatry
DX: G30.9 Alzheimer's disease, unspecified (principal); F02.81 Dementia in other diseases classified elsewhere, unspecified severity, with behavioral disturbance; R62.7 Adult failure to thrive; I10 Essential (primary) hypertension; E11.9 Type 2 diabetes mellitus without complications; Z79.84 Long term (current) use of oral hypoglycemic drugs; Z88.0 Allergy status to penicillin
CPT/HCPCS: 36415-UA; 80053-TC; 80061-TC; 83036-90; 83735-TC; 84100-TC; 84443-TC; 85025-TC; J2060; Z7610

== ENCOUNTER 2018-06-16 11:04 | Inpatient (IN) | payer MEDICARE, MEDICAID ==
[2018-06-16] MEDS ORDERED: Maalox 30 mL Cup PO PRN (12:55)
[2018-06-16] MEDS ORDERED: Magnesium Hydroxide (MOM) 30 mL UDC PO PRN (12:55)
[2018-06-16] MEDS: Sodium Chloride 0.9% 1,000 ML IV SCH (13:19)
--- NOTE | 2018-06-16 14:45 | Consultation ---
Consult Note - Consult Note Service Date: 06/16/18 Referring Physician: Yuliana Decker Consult Note: PHYSICIAN Consultation Note: Date of Admission: 06/16/18 keren. Zackery Duke M.D. [id number]
[2018-06-16 15:51] LABS: URINE SOURCE CATH
[2018-06-16 15:53] LABS: URINE BILIRUBIN NEGATIVE (NEGATIVE); URINE BLOOD SMALL (NEGATIVE); URINE GLUCOSE (UA) NEGATIVE (NEGATIVE); URINE KETONE NEGATIVE (NEGATIVE); URINE LEUKOCYTE ESTERASE NEGATIVE (NEGATIVE); URINE MICROSCOPIC INDICATED? YES; URINE NITRATE NEGATIVE (NEGATIVE); URINE PH 6.5 (4.6 - 8.0); URINE PROTEIN NEGATIVE (NEGATIVE)
[2018-06-16 16:24] LABS: URINE CLARITY CLEAR (CLEAR); URINE COLOR YELLOW
[2018-06-16 16:25] LABS: URINE BACTERIA FEW /hpf (NONE SEEN); URINE EPITHELIAL CELLS FEW /lpf (FEW); URINE RBC NONE SEEN /hpf (0-5); URINE WBC 0-2 /hpf (0-5)
[2018-06-16] MEDS: Levofloxacin 500mg/100mL 500 MG/100 ML BAG IV SCH (16:51)
[2018-06-16 17:47] VITALS: BP 121/72
--- NOTE | 2018-06-16 20:49 | Internal Medicine Prog Note ---
Internal Medicine Objective - Results Recent Labs: Laboratory Last Values Whole Bld Lactic Acid 1.45 mmol/L (0.60-1.99) 06/16/18 16:35 Urine Source CATH 06/16/18 15:30 Urine Color YELLOW 06/16/18 15:30 Urine Clarity CLEAR (CLEAR) 06/16/18 15:30 Urine pH 6.5 (4.6 - 8.0) 06/16/18 15:30 Ur Specific [place] <= 1.005 (1.005-1.030) 06/16/18 15:30 Urine Protein NEGATIVE mg/dL (NEGATIVE) 06/16/18 15:30 Urine Glucose (UA) NEGATIVE mg/dL (NEGATIVE) 06/16/18 15:30 Urine Ketones NEGATIVE mg/dL (NEGATIVE) 06/16/18 15:30 Urine Blood SMALL (NEGATIVE) H 06/16/18 15:30 Urine Nitrate NEGATIVE (NEGATIVE) 06/16/18 15:30 Urine Bilirubin NEGATIVE (NEGATIVE) 06/16/18 15:30 Urine Urobilinogen 2.0 E.U./dL (0.2 - 1.0) 06/16/18 15:30 Ur Leukocyte Esterase NEGATIVE (NEGATIVE) 06/16/18 15:30 Urine RBC NONE SEEN /hpf (0-5) 06/16/18 15:30 Urine WBC 0-2 /hpf (0-5) 06/16/18 15:30 Ur Epithelial Cells FEW /lpf (FEW) 06/16/18 15:30 Urine Bacteria FEW /hpf (NONE SEEN) 06/16/18 15:30 - Physical Exam Vitals and I&O: Vital Signs Temp 97.3 F 06/16/18 20:00 Pulse 117 06/16/18 20:00 Resp 18 06/16/18 20:00 BP 179/74 06/16/18 20:00 Pulse Ox 97 06/16/18 20:00 Intake & Output 06/16/18 06/16/18 06/17/18 06:59 18:59 06:59 Other: Weight Source Bedscale Active Medications: Current Medications Acetaminophen (Tylenol) 650 mg PO Q4HR PRN PRN Reason: Mild Pain / Temp above 100 Stop: 08/15/18 12:54 Al Hydrox/Mg Hydrox/Simethicone (Maalox) 30 ml PO Q4HR PRN PRN Reason: GI DISTRESS Stop: 08/15/18 12:54 Aspirin (Aspirin Chewable) 81 mg PO DAILY [facility] Stop: 08/16/18 08:59 Clopidogrel Bisulfate (Plavix) 75 mg PO DAILY [facility] Stop: 08/16/18 08:59 Donepezil HCl (Aricept) 10 mg PO DAILY [facility] Stop: 08/16/18 08:59 Hydrochlorothiazide (Hctz) 25 mg PO DAILY [facility] Stop: 08/16/18 08:59 Sodium Chloride (Nacl 0.9%) 1,000 mls @ 150 mls/hr IV .Q6H40M [facility] Stop: 08/15/18 13:14 Last Admin: 06/16/18 13:19 Dose: 150 mls/hr Levofloxacin (Levaquin Pb) 500 mg in 100 mls @ 100 mls/hr IV Q24HR [facility] Stop: 08/15/18 16:59 Last Admin: 06/16/18 16:51 Dose: 100 mls/hr Lisinopril (Zestril) 10 mg PO DAILY [facility] Stop: 08/16/18 08:59 Lorazepam (Ativan) 0.5 mg PO DAILY [facility]; Protocol Stop: 08/16/18 08:59 Magnesium Hydroxide (Milk Of Magnesia) 30 ml PO HS PRN PRN Reason: Constipation Stop: 08/15/18 12:54 Metformin HCl (Glucophage) 500 mg PO BIDWM [facility] Stop: 08/15/18 17:59 Last Admin: 06/16/18 17:54 Dose: 500 mg Mirtazapine (Remeron) 15 mg PO HS [facility]; Protocol Stop: 08/15/18 20:59 Simvastatin (Zocor) 20 mg PO DAILY [facility]; Protocol Stop: 08/16/18 08:59
--- NOTE | 2018-06-17 01:34 | Consultation ---
DATE OF CONSULTATION: 06/16/2018 INFECTIOUS DISEASE CONSULTATION REFERRING PHYSICIAN: Dr. Decker. REASON FOR CONSULTATION: Leukocytosis. HISTORY OF PRESENT ILLNESS: The patient is a 78-year-old female with a past medical history of hypertension, diabetes mellitus type 2, Alzheimer dementia, presented to the ER for failure to thrive. The patient was admitted to Geropsych Unit for psych issues. Today, she developed tachycardia at heart rate of 121 and WBC count of 14,700. The patient was transferred to Medical/Surgical Unit today for further evaluation and management. Blood cultures ordered. UA and urine culture ordered. ID consult was called. PAST MEDICAL HISTORY: As mentioned above, diabetes mellitus type 2, hypertension, dementia, cachexia, failure to thrive. PAST SURGICAL HISTORY: Not available. MEDICATIONS: As per medication reconciliation sheet. No antibiotic at this time. ALLERGIES: PENICILLIN. SOCIAL HISTORY: The patient lives at nursing facility. No history of smoking, alcohol, or drug use. FAMILY HISTORY: Noncontributory. REVIEW OF SYSTEMS: Unable to obtain. No fever, no chills. PHYSICAL EXAMINATION: VITAL SIGNS: Current vital signs shows temperature 98.1, pulse 121, respirations 17, blood pressure 158/92. GENERAL: The patient is comfortable, cachectic, not in acute distress. HEENT: Head is normocephalic, atraumatic. Oral cavity moist, pink tongue. Eyes: No pallor, no icterus. Pupils PERRLA, EOMI. NECK: Supple, no JVD, no carotid bruit. Trachea in midline. CHEST: Bilateral breath sounds. No crackles or wheezing. HEART: S1, S2 within normal limits. Regular rhythm. No murmur, no gallop. ABDOMEN: Soft, nontender, nondistended. Bowel sounds present. EXTREMITIES: No cyanosis, no clubbing, no edema. NEUROLOGIC: Able to open eyes, but aphasic. Confused. LABORATORY CORREIA: Current lab shows WBC count is 14,700, hemoglobin 16.4, hematocrit 47.7, platelets are 228,000, neutrophils 83%. Sodium 137, potassium 3.7, chloride 96, bicarbonate is 33, BUN is 16, creatinine 0.7, glucose is 215. IMPRESSION: 1. Leukocytosis. 2. Tachycardia. 3. Rule out sepsis. RECOMMENDATIONS: We will start Levaquin empirically. Sepsis workup will be performed. Check lactic acid. Thank you, Dr. Decker for involving me in taking care of this patient. JOB# [id number]
[2018-06-17 06:35] LABS: % BASOPHILS 0.3 % (0.0-2.0); % EOSINOPHILS 0.4 % (0.0-5.0); % LYMPHOCYTES 9.7 % (20.0-50.0); % MONOCYTES 10.5 % (2.0-10.0); % NEUTROPHILS 79.1 % (40.0-80.0); HEMOGLOBIN 15.2 gm/dL (12-16); LYMPHOCYTE ABSOLUTE 1.2 Th/cmm (1.5-3.0); MEAN CORPUSCULAR HEMOGLOBIN 31.4 pg (27.0-31.0); MEAN CORPUSCULAR HGB CONC 33.7 pg (28.0-36.0); MEAN PLATELET VOLUME 8.9 fl; MONOCYTE ABSOLUTE 1.3 Th/cmm (0.3-1.0); NEUTROPHILE ABSOLUTE 9.9 Th/cmm (1.8-8.0); PLATELET COUNT 211 Th/cmm (150-400); RED BLOOD COUNT 4.84 Mil/cmm (3.80-5.20); WHITE BLOOD COUNT 12.4 Th/cmm (4.8-10.8)
[2018-06-17 06:53] LABS: ALB/GLOB RATIO 1.5 (1.0-1.8); ALKALINE PHOSPHATASE 76 U/L (34-104); ANION GAP 12.6 (7.0-16.0); BILIRUBIN,TOTAL 1.3 mg/dL (0.3-1.0); BUN - UREA NITROGEN 10 mg/dL (7-25); CALCIUM SERUM 9.3 mg/dL (8.6-10.3); CARBON DIOXIDE 28.9 mEq/L (21.0-31.0); CHLORIDE 99 mEq/L (98-107); CREATININE - SERUM 0.6 mg/dL (0.6-1.2); GLUCOSE 180 mg/dL (70-105); POTASSIUM SERUM 3.5 mEq/L (3.5-5.1); SGOT 14 U/L (13-39); SGPT/ALT 8 U/L (7-52); SODIUM SERUM 137 mEq/L (136-145); TOTAL PROTEIN,SERUM 6.6 gm/dL (6.0-8.3)
--- NOTE | 2018-06-17 08:56 | Diagnostic Imaging Report ---
Portable chest x-ray HISTORY: Cough Allowing for portable technique, the heart size is normal. A 5 mm calcified nodule is noted in the right upper lobe. Findings consistent with old granulomatous disease. No acute pulmonary parenchymal processes. No hilar or mediastinal abnormalities. Vascular calcification noted. IMPRESSION: 1. No acute abnormalities 2. 5 mm calcified nodule within the right lobe consistent with old granulomatous disease 3. Atherosclerotic vascular changes
--- NOTE | 2018-06-17 09:30 | Progress Notes ---
DATE: 06/16/2018 SUBJECTIVE: Chart reviewed and the patient interviewed. Also discussed the patient's condition with the staff and reviewed records and labs. The patient is still severely confused and restless. The patient also is still in irritable mood and anxious and easily agitated. Also, her affect is labile and she still has difficulty sleeping all night. She also was trying to get off the gurney chair when I was trying to talk to her. On the other hand, the patient is compliant with taking her medications with no side effects of medications. ASSESSMENT: The patient is still confused and is still in irritable mood. TREATMENT PLAN: We will continue to monitor her behavior and her condition closely. Also, we will increase Remeron to 15 mg at bedtime and continue Aricept to 10 mg every day and we will continue to monitor behavior and condition closely. JOB# [id number]
[2018-06-17] MEDS: Aspirin 81mg Chewable Tab PO SCH (10:01)
[2018-06-17] MEDS ORDERED: Probiotic Screen MC PRN (12:58)
[2018-06-17] MEDS: Levofloxacin 500mg/100mL 500 MG/100 ML BAG IV SCH (19:45)
[2018-06-18] MEDS: Sodium Chloride 0.9% 1,000 ML IV SCH ×2 (06:11→16:49)
[2018-06-18 06:29] LABS: % BASOPHILS 0.2 % (0.0-2.0); % EOSINOPHILS 0.3 % (0.0-5.0); % LYMPHOCYTES 11.7 % (20.0-50.0); % MONOCYTES 11.1 % (2.0-10.0); % NEUTROPHILS 76.7 % (40.0-80.0); HEMATOCRIT 42.9 % (41.0-60); HEMOGLOBIN 14.3 gm/dL (12-16); LYMPHOCYTE ABSOLUTE 1.5 Th/cmm (1.5-3.0); MEAN CELL VOLUME 94.4 fl (81-100); MEAN CORPUSCULAR HEMOGLOBIN 31.4 pg (27.0-31.0); MEAN CORPUSCULAR HGB CONC 33.3 pg (28.0-36.0); MEAN PLATELET VOLUME 9.1 fl; MONOCYTE ABSOLUTE 1.4 Th/cmm (0.3-1.0); PLATELET COUNT 223 Th/cmm (150-400); RED BLOOD COUNT 4.54 Mil/cmm (3.80-5.20); RED CELL DISTRIBUTION WIDTH 12.2 % (11.5-20.0); WHITE BLOOD COUNT 12.9 Th/cmm (4.8-10.8)
[2018-06-18 06:48] LABS: ANION GAP 12.7 (7.0-16.0); BUN - UREA NITROGEN 10 mg/dL (7-25); CALCIUM SERUM 9.2 mg/dL (8.6-10.3); CARBON DIOXIDE 29.9 mEq/L (21.0-31.0); CHLORIDE 98 mEq/L (98-107); CREATININE - SERUM 0.6 mg/dL (0.6-1.2); GLUCOSE 192 mg/dL (70-105); POTASSIUM SERUM 3.6 mEq/L (3.5-5.1); SODIUM SERUM 137 mEq/L (136-145)
[2018-06-18] MEDS: Lactobacillus Rhamnosus GG 15 Billion CFU CAP.SPRINK PO SCH (09:21)
[2018-06-18] MEDS: Aspirin 81mg Chewable Tab PO SCH (09:24)
--- NOTE | 2018-06-18 09:52 | History & Physical ---
ADMIT DATE: 06/18/2018 CHIEF COMPLAINT: Tachycardia. HISTORY OF PRESENT ILLNESS: This is a 78-year-old female who was originally admitted from Geropsych Unit. Unfortunately, the patient developed fever and tachycardia with a white count of 12,000. Hence, the patient was transferred to medical/surgical unit for further management. REVIEW OF SYSTEMS: GENERAL: This is a 78-year-old female. No fever. Positive weakness. HEAD: No headache. No dizziness. EYES: No eye pain or blurring of vision. NECK: No neck pain, no nuchal rigidity. CHEST: No chest pain or palpitation. PULMONARY: No shortness of breath, no coughing. GASTROINTESTINAL: No constipation, no diarrhea, no abdominal pain. MUSCULOSKELETAL: No clubbing. No cyanosis. No joint pain. No muscle pain. Positive muscle weakness. SOCIAL HISTORY: The patient was admitted from the psychiatric unit prior to hospitalization. PAST SURGICAL HISTORY: Unremarkable. PSYCHIATRIC HISTORY: Includes dementia. PAST MEDICAL HISTORY: Includes hypertension, coronary artery disease, diabetes, hyperlipidemia. FAMILY HISTORY: Unremarkable. PHYSICAL EXAMINATION: VITAL SIGNS: Temperature 97.8, heart rate of 102, blood pressure 118/87, respirations of 18, and 96% on room air. GENERAL: This is a 78-year-old female that appears as stated in no acute distress. HEENT: Head is atraumatic, normocephalic. Eyes: Bilateral conjunctivae are clear. Bilateral pupils are equally round and reactive. NECK: Supple. No JVD. CARDIOVASCULAR: S1 and S2, without murmur. PULMONARY: Clear to auscultation. GASTROINTESTINAL: Soft and nontender without guarding. Positive bowel sounds. MUSCULOSKELETAL: No clubbing. No cyanosis noted. ASSESSMENT: 1. Leukocytosis. 2. Rule out sepsis. 3. Hypertension. 4. Dementia. 5. Coronary artery disease. 6. Diabetes. 7. Hyperlipidemia. PLAN: We will admit the patient to Med/Surg Unit. We will follow up with ID doctor and psychiatrist to monitor the patient's condition and behavior. We will do medication reconciliation accordingly. Treatment plans were discussed with the patient's nurse. Treatment plans were discussed with Dr. Decker. The patient's son, Marin was called to give an update. JOB# [id number]
[2018-06-18] MEDS: Levofloxacin 500mg/100mL 500 MG/100 ML BAG IV SCH (17:44)
--- NOTE | 2018-06-18 18:58 | Infectious Disease Prog Note ---
Infectious Disease Subjective - Review of Systems Service Date: 06/18/18 Subjective: There is no new change, no fever Infectious Disease Objective - Results Result Diagrams: 06/18/18 05:40 06/18/18 05:40 Recent Labs: Laboratory Last Values WBC 12.9 Th/cmm (4.8-10.8) H 06/18/18 05:40 RBC 4.54 Mil/cmm (3.80-5.20) 06/18/18 05:40 Hgb 14.3 gm/dL (12-16) 06/18/18 05:40 Hct 42.9 % (41.0-60) 06/18/18 05:40 MCV 94.4 fl (81-100) 06/18/18 05:40 MCH 31.4 pg (27.0-31.0) H 06/18/18 05:40 MCHC Differential 33.3 pg (28.0-36.0) 06/18/18 05:40 RDW 12.2 % (11.5-20.0) 06/18/18 05:40 Plt Count 223 Th/cmm (150-400) 06/18/18 05:40 MPV 9.1 fl 06/18/18 05:40 Neutrophils % 76.7 % (40.0-80.0) 06/18/18 05:40 Lymphocytes % 11.7 % (20.0-50.0) L 06/18/18 05:40 Monocytes % 11.1 % (2.0-10.0) H 06/18/18 05:40 Eosinophils % 0.3 % (0.0-5.0) 06/18/18 05:40 Basophils % 0.2 % (0.0-2.0) 06/18/18 05:40 Sodium 137 mEq/L (136-145) 06/18/18 05:40 Potassium 3.6 mEq/L (3.5-5.1) 06/18/18 05:40 Chloride 98 mEq/L (98-107) 06/18/18 05:40 Carbon Dioxide 29.9 mEq/L (21.0-31.0) 06/18/18 05:40 Anion Gap 12.7 (7.0-16.0) 06/18/18 05:40 BUN 10 mg/dL (7-25) 06/18/18 05:40 Creatinine 0.6 mg/dL (0.6-1.2) 06/18/18 05:40 Est GFR ( Amer) TNP 06/18/18 05:40 Est GFR (Non-Af Amer) TNP 06/18/18 05:40 BUN/Creatinine Ratio 16.7 06/18/18 05:40 Glucose 192 mg/dL (70-105) H 06/18/18 05:40 POC Glucose 149 MG/DL (70 - 105) H 06/18/18 09:27 Whole Bld Lactic Acid 1.45 mmol/L (0.60-1.99) 06/16/18 16:35 Calcium 9.2 mg/dL (8.6-10.3) 06/18/18 05:40 Total Bilirubin 1.3 mg/dL (0.3-1.0) H 06/17/18 05:58 AST 14 U/L (13-39) 06/17/18 05:58 ALT 8 U/L (7-52) 06/17/18 05:58 Alkaline Phosphatase 76 U/L (34-104) 06/17/18 05:58 Total Protein 6.6 gm/dL (6.0-8.3) 06/17/18 05:58 Albumin 4.0 gm/dL (3.7-5.3) 06/17/18 05:58 Globulin 2.6 gm/dL 06/17/18 05:58 Albumin/Globulin Ratio 1.5 (1.0-1.8) 06/17/18 05:58 Urine Source CATH 06/16/18 15:30 Urine Color YELLOW 06/16/18 15:30 Urine Clarity CLEAR (CLEAR) 06/16/18 15:30 Urine pH 6.5 (4.6 - 8.0) 06/16/18 15:30 Ur Specific [place] <= 1.005 (1.005-1.030) 06/16/18 15:30 Urine Protein NEGATIVE mg/dL (NEGATIVE) 06/16/18 15:30 Urine Glucose (UA) NEGATIVE mg/dL (NEGATIVE) 06/16/18 15:30 Urine Ketones NEGATIVE mg/dL (NEGATIVE) 06/16/18 15:30 Urine Blood SMALL (NEGATIVE) H 06/16/18 15:30 Urine Nitrate NEGATIVE (NEGATIVE) 06/16/18 15:30 Urine Bilirubin NEGATIVE (NEGATIVE) 06/16/18 15:30 Urine Urobilinogen 2.0 E.U./dL (0.2 - 1.0) 06/16/18 15:30 Ur Leukocyte Esterase NEGATIVE (NEGATIVE) 06/16/18 15:30 Urine RBC NONE SEEN /hpf (0-5) 06/16/18 15:30 Urine WBC 0-2 /hpf (0-5) 06/16/18 15:30 Ur Epithelial Cells FEW /lpf (FEW) 06/16/18 15:30 Urine Bacteria FEW /hpf (NONE SEEN) 06/16/18 15:30 - Physical Exam Vitals and I&O: Vital Signs Temp 97.9 F 06/18/18 15:53 Pulse 89 06/18/18 15:53 Resp 18 06/18/18 15:53 BP 129/78 06/18/18 15:53 Pulse Ox 97 06/18/18 15:53 Intake & Output 06/17/18 06/18/18 06/18/18 18:59 06:59 18:59 Intake Total 0 300 1000 Balance 0 300 1000 Weight (lbs) 56.699 kg 53.779 kg Intake: Intake, IV Amount 100 1000 Levofloxacin 500mg/100mL 100 500 mg In 100 ml @ 100 mls/hr IV Q24HR [facility] Rx#: [id number] Sodium Chloride 0.9% 1, 1000 000 ml @ 150 mls/hr IV . Q6H40M [facility] Rx#:[id number] Oral 0 200 Other: # Voids 2 # Bowel Movements 0 Weight Source Bedscale Bedscale Active Medications: Current Medications Acetaminophen (Tylenol) 650 mg PO Q4HR PRN PRN Reason: Mild Pain / Temp above 100 Stop: 08/15/18 12:54 Last Admin: 06/18/18 16:49 Dose: 650 mg Al Hydrox/Mg Hydrox/Simethicone (Maalox) 30 ml PO Q4HR PRN PRN Reason: GI DISTRESS Stop: 08/15/18 12:54 Aspirin (Aspirin Chewable) 81 mg PO DAILY [facility] Stop: 08/16/18 08:59 Last Admin: 06/18/18 09:24 Dose: 81 mg Clopidogrel Bisulfate (Plavix) 75 mg PO DAILY [facility] Stop: 08/16/18 08:59 Last Admin: 06/18/18 09:24 Dose: 75 mg Donepezil HCl (Aricept) 10 mg PO DAILY [facility] Stop: 08/16/18 08:59 Last Admin: 06/18/18 09:24 Dose: 10 mg Hydrochlorothiazide (Hctz) 25 mg PO DAILY [facility] Stop: 08/16/18 08:59 Last Admin: 06/18/18 09:23 Dose: 25 mg Sodium Chloride (Nacl 0.9%) 1,000 mls @ 150 mls/hr IV .Q6H40M [facility] Stop: 08/15/18 13:14 Last Admin: 06/18/18 16:49 Dose: 150 mls/hr Levofloxacin (Levaquin Pb) 500 mg in 100 mls @ 100 mls/hr IV Q24HR [facility] Stop: 08/15/18 16:59 Last Admin: 06/18/18 17:44 Dose: 100 mls/hr Lactobacillus Rhamnosus (Culturelle 15b) 1 each PO DAILY [facility] Stop: 08/17/18 08:59 Last Admin: 06/18/18 09:21 Dose: 1 each Lisinopril (Zestril) 10 mg PO DAILY [facility] Stop: 08/16/18 08:59 Last Admin: 06/18/18 09:24 Dose: 10 mg Lorazepam (Ativan) 0.5 mg PO DAILY [facility]; Protocol Stop: 08/16/18 08:59 Last Admin: 06/18/18 09:23 Dose: 0.5 mg Lorazepam (Ativan) 1 mg PO Q4HR PRN; Protocol PRN Reason: Agitation Stop: 08/15/18 21:28 Last Admin: 06/16/18 21:40 Dose: 1 mg Magnesium Hydroxide (Milk Of Magnesia) 30 ml PO HS PRN PRN Reason: Constipation Stop: 08/15/18 12:54 Metformin HCl (Glucophage) 500 mg PO BIDWM [facility] Stop: 08/15/18 17:59 Last Admin: 06/18/18 09:29 Dose: Not Given Mirtazapine (Remeron) 15 mg PO HS [facility]; Protocol Stop: 08/15/18 20:59 Last Admin: 06/17/18 23:30 Dose: 15 mg Miscellaneous (Probiotic Screen) 1 ea MC PRN PRN PRN Reason: PROTOCOL Stop: 08/16/18 12:57 Simvastatin (Zocor) 20 mg PO DAILY [facility]; Protocol Stop: 08/16/18 08:59 Last Admin: 06/18/18 09:24 Dose: 20 mg General: no acute distress, well developed, well nourished HEENT: atraumatic, normocephalic, PERRLA Neck: supple, no thyromegaly Cardiovascular: S1S2, regular Lungs: clear to auscultation bilaterally, clear to percussion Abdomen: soft, no tender, no distended, no rebound Extremities: no cyanosis, no clubbing Neurological: awake, alert, oriented Skin: intact Infectious Disease Assmt/Plan - Assessment Assessment: Lekocytosis. - Plan Plan: cpm. Nutritional Asmnt/Malnutr-PDOC - Dietary Evaluation Malnutrition Findings (Please click <Entered> for more info): Nutritional Asmnt/Malnutrition Start: 06/17/18 16: 33 Text: Status: Complete Freq: Protocol: Document 06/17/18 16:34 LCHENG (Rec: 06/17/18 16:52 LCHENG [email or web address]) Nutritional Asmnt/Malnutrition Patient General Information Nutritional Screening High Risk Diagnosis dehydration Pertinent Medical Hx/Surgical Hx HTN, DM, dementia, alzhemers Subjective Information Pt seen sleeping in bed at time of visit d/t medication per RN. Current Diet Order/ Nutrition Support CCHO 60-gm, mech soft, low sodium Pertinent Medications culturelle, levaquin, glucophage, remeron, nacl 0.9% Pertinent Labs 06/17 Glucose 180, POC 141 Nutritional Hx/Data Height 1.57 m Height (Calculated Centimeters) 157.5 Current Weight (lbs) 56.699 kg Weight (Calculated Kilograms) 56.7 Weight (Calculated Grams) 78358.0 [place] Body Weight 110 Body Mass Index (BMI) 22.8 Weight Status Approriate GI Symptoms GI Symptoms None Last BM not indicated Difficult in: None Skin Integrity/Comment: intact Current %PO Poor (25-49%) Estimated Nutritional Goals BEE in Kcals: Using Current wt Calories/Kcals/Kg 25-30 Kcals Calculated 2387-6695 Protein: Using Current wt Protein g/k-1.2 Protein Calculated 57-68 Fluid: ml 1425-1710ml (1ml/kcal) Nutritional Problem 1. Problem Problem altered nutrition related labs Etiology hyperglycemia Signs/Symptoms: glucose 180 Malnutrition Alert Is there a minimum of two criteria No selected? Query Text:Check all the applicable criteria. A minimum of two criteria are recommended for diagnosis of either severe or non-severe malnutrition. Malnutrition Related to Morbid Obesity Malnutrition related to morbid obesity No Intervention/Recommendation Comments 1. Continue with [facility] soft low sodium CCHO 60gm diet as ordered. Nurses to assist pt with meals as needed. 2. Monitor PO intake, wt, labs and skin integrity 3. F/U as high risk in 2-3 days Expected Outcomes/Goals Expected Outcomes/Goals 1. PO intake to meet at least 75% of nutritional needs. 2. Wt stability, skin to remain intact, labs to approach WNL.
[2018-06-19] MEDS: Sodium Chloride 0.9% 1,000 ML IV SCH ×3 (04:57→15:14)
[2018-06-19 05:23] LABS: % BASOPHILS 0.1 % (0.0-2.0); % EOSINOPHILS 0.3 % (0.0-5.0); % LYMPHOCYTES 10.9 % (20.0-50.0); % MONOCYTES 8.7 % (2.0-10.0); HEMATOCRIT 42.1 % (41.0-60); LYMPHOCYTE ABSOLUTE 1.2 Th/cmm (1.5-3.0); MEAN CELL VOLUME 95.1 fl (81-100); MEAN CORPUSCULAR HEMOGLOBIN 31.5 pg (27.0-31.0); MEAN CORPUSCULAR HGB CONC 33.2 pg (28.0-36.0); MEAN PLATELET VOLUME 8.5 fl; PLATELET COUNT 238 Th/cmm (150-400); RED BLOOD COUNT 4.43 Mil/cmm (3.80-5.20); RED CELL DISTRIBUTION WIDTH 12.1 % (11.5-20.0); WHITE BLOOD COUNT 11.2 Th/cmm (4.8-10.8)
[2018-06-19 05:39] LABS: ANION GAP 10.8 (7.0-16.0); BUN - UREA NITROGEN 11 mg/dL (7-25); CARBON DIOXIDE 30.7 mEq/L (21.0-31.0); CHLORIDE 100 mEq/L (98-107); CREATININE - SERUM 0.6 mg/dL (0.6-1.2); GLUCOSE 211 mg/dL (70-105); POTASSIUM SERUM 3.5 mEq/L (3.5-5.1); SODIUM SERUM 138 mEq/L (136-145)
[2018-06-19 05:40] LABS: ALB/GLOB RATIO 1.2 (1.0-1.8); ALBUMIN 3.5 gm/dL (3.7-5.3); ALKALINE PHOSPHATASE 71 U/L (34-104); BILIRUBIN,TOTAL 0.9 mg/dL (0.3-1.0); CALCIUM SERUM 9.2 mg/dL (8.6-10.3); SGOT 11 U/L (13-39); SGPT/ALT 9 U/L (7-52); TOTAL PROTEIN,SERUM 6.4 gm/dL (6.0-8.3)
[2018-06-19] MEDS: Aspirin 81mg Chewable Tab PO SCH (09:16)
[2018-06-19] MEDS: Lactobacillus Rhamnosus GG 15 Billion CFU CAP.SPRINK PO SCH (09:17)
--- NOTE | 2018-06-19 09:21 | Internal Medicine Prog Note ---
Internal Medicine Subjective - Subjective Patient seen and examined:: chart reviewed Patient is:: awake, other (admitted for fever tachycardia r/o sepsis) Internal Medicine Objective - Results Result Diagrams: 06/19/18 05:10 06/19/18 05:10 Recent Labs: Laboratory Last Values WBC 11.2 Th/cmm (4.8-10.8) H 06/19/18 05:10 RBC 4.43 Mil/cmm (3.80-5.20) 06/19/18 05:10 Hgb 14.0 gm/dL (12-16) 06/19/18 05:10 Hct 42.1 % (41.0-60) 06/19/18 05:10 MCV 95.1 fl (81-100) 06/19/18 05:10 MCH 31.5 pg (27.0-31.0) H 06/19/18 05:10 MCHC Differential 33.2 pg (28.0-36.0) 06/19/18 05:10 RDW 12.1 % (11.5-20.0) 06/19/18 05:10 Plt Count 238 Th/cmm (150-400) 06/19/18 05:10 MPV 8.5 fl 06/19/18 05:10 Neutrophils % 80.0 % (40.0-80.0) 06/19/18 05:10 Lymphocytes % 10.9 % (20.0-50.0) L 06/19/18 05:10 Monocytes % 8.7 % (2.0-10.0) 06/19/18 05:10 Eosinophils % 0.3 % (0.0-5.0) 06/19/18 05:10 Basophils % 0.1 % (0.0-2.0) 06/19/18 05:10 Sodium 138 mEq/L (136-145) 06/19/18 05:10 Potassium 3.5 mEq/L (3.5-5.1) 06/19/18 05:10 Chloride 100 mEq/L (98-107) 06/19/18 05:10 Carbon Dioxide 30.7 mEq/L (21.0-31.0) 06/19/18 05:10 Anion Gap 10.8 (7.0-16.0) 06/19/18 05:10 BUN 11 mg/dL (7-25) 06/19/18 05:10 Creatinine 0.6 mg/dL (0.6-1.2) 06/19/18 05:10 Est GFR ( Amer) TNP 06/19/18 05:10 Est GFR (Non-Af Amer) TNP 06/19/18 05:10 BUN/Creatinine Ratio 18.3 06/19/18 05:10 Glucose 211 mg/dL (70-105) H 06/19/18 05:10 POC Glucose 149 MG/DL (70 - 105) H 06/18/18 09:27 Whole Bld Lactic Acid 1.45 mmol/L (0.60-1.99) 06/16/18 16:35 Calcium 9.2 mg/dL (8.6-10.3) 06/19/18 05:10 Total Bilirubin 0.9 mg/dL (0.3-1.0) 06/19/18 05:10 AST 11 U/L (13-39) L 06/19/18 05:10 ALT 9 U/L (7-52) 06/19/18 05:10 Alkaline Phosphatase 71 U/L (34-104) 06/19/18 05:10 Total Protein 6.4 gm/dL (6.0-8.3) 06/19/18 05:10 Albumin 3.5 gm/dL (3.7-5.3) L 06/19/18 05:10 Globulin 2.9 gm/dL 06/19/18 05:10 Albumin/Globulin Ratio 1.2 (1.0-1.8) 06/19/18 05:10 Urine Source CATH 06/16/18 15:30 Urine Color YELLOW 06/16/18 15:30 Urine Clarity CLEAR (CLEAR) 06/16/18 15:30 Urine pH 6.5 (4.6 - 8.0) 06/16/18 15:30 Ur Specific [place] <= 1.005 (1.005-1.030) 06/16/18 15:30 Urine Protein NEGATIVE mg/dL (NEGATIVE) 06/16/18 15:30 Urine Glucose (UA) NEGATIVE mg/dL (NEGATIVE) 06/16/18 15:30 Urine Ketones NEGATIVE mg/dL (NEGATIVE) 06/16/18 15:30 Urine Blood SMALL (NEGATIVE) H 06/16/18 15:30 Urine Nitrate NEGATIVE (NEGATIVE) 06/16/18 15:30 Urine Bilirubin NEGATIVE (NEGATIVE) 06/16/18 15:30 Urine Urobilinogen 2.0 E.U./dL (0.2 - 1.0) 06/16/18 15:30 Ur Leukocyte Esterase NEGATIVE (NEGATIVE) 06/16/18 15:30 Urine RBC NONE SEEN /hpf (0-5) 06/16/18 15:30 Urine WBC 0-2 /hpf (0-5) 06/16/18 15:30 Ur Epithelial Cells FEW /lpf (FEW) 06/16/18 15:30 Urine Bacteria FEW /hpf (NONE SEEN) 06/16/18 15:30 - Physical Exam Vitals and I&O: Vital Signs Temp 97.4 F 06/19/18 08:00 Pulse 92 06/19/18 09:15 Resp 18 06/19/18 08:00 BP 159/58 06/19/18 09:16 Pulse Ox 96 06/19/18 08:00 Intake & Output 06/18/18 06/19/18 06/19/18 18:59 06:59 18:59 Intake Total 1000 1002.5 Balance 1000 1002.5 Intake: Intake, IV Amount 1000 1002.5 Sodium Chloride 0.9% 1, 1000 1002.5 000 ml @ 150 mls/hr IV . Q6H40M [facility] Rx#:[id number] Active Medications: Current Medications Acetaminophen (Tylenol) 650 mg PO Q4HR PRN PRN Reason: Mild Pain / Temp above 100 Stop: 08/15/18 12:54 Last Admin: 06/19/18 01:08 Dose: 650 mg Al Hydrox/Mg Hydrox/Simethicone (Maalox) 30 ml PO Q4HR PRN PRN Reason: GI DISTRESS Stop: 08/15/18 12:54 Aspirin (Aspirin Chewable) 81 mg PO DAILY [facility] Stop: 08/16/18 08:59 Last Admin: 06/19/18 09:16 Dose: 81 mg Clopidogrel Bisulfate (Plavix) 75 mg PO DAILY [facility] Stop: 08/16/18 08:59 Last Admin: 06/19/18 09:16 Dose: 75 mg Donepezil HCl (Aricept) 10 mg PO DAILY [facility] Stop: 08/16/18 08:59 Last Admin: 06/19/18 09:16 Dose: 10 mg Hydrochlorothiazide (Hctz) 25 mg PO DAILY [facility] Stop: 08/16/18 08:59 Last Admin: 06/19/18 09:16 Dose: 25 mg Sodium Chloride (Nacl 0.9%) 1,000 mls @ 150 mls/hr IV .Q6H40M [facility] Stop: 08/15/18 13:14 Last Admin: 06/19/18 04:58 Dose: 150 mls/hr Levofloxacin (Levaquin Pb) 500 mg in 100 mls @ 100 mls/hr IV Q24HR [facility] Stop: 08/15/18 16:59 Last Admin: 06/18/18 17:44 Dose: 100 mls/hr Lactobacillus Rhamnosus (Culturelle 15b) 1 each PO DAILY [facility] Stop: 08/17/18 08:59 Last Admin: 06/19/18 09:17 Dose: 1 each Lisinopril (Zestril) 10 mg PO DAILY [facility] Stop: 08/16/18 08:59 Last Admin: 06/19/18 09:15 Dose: 10 mg Lorazepam (Ativan) 0.5 mg PO DAILY [facility]; Protocol Stop: 08/16/18 08:59 Last Admin: 06/19/18 09:17 Dose: Not Given Lorazepam (Ativan) 1 mg PO Q4HR PRN; Protocol PRN Reason: Agitation Stop: 08/15/18 21:28 Last Admin: 06/16/18 21:40 Dose: 1 mg Magnesium Hydroxide (Milk Of Magnesia) 30 ml PO HS PRN PRN Reason: Constipation Stop: 08/15/18 12:54 Metformin HCl (Glucophage) 500 mg PO BIDWM [facility] Stop: 08/15/18 17:59 Last Admin: 06/19/18 09:16 Dose: 500 mg Mirtazapine (Remeron) 15 mg PO HS [facility]; Protocol Stop: 08/15/18 20:59 Last Admin: 06/19/18 01:10 Dose: 15 mg Miscellaneous (Probiotic Screen) 1 ea MC PRN PRN PRN Reason: PROTOCOL Stop: 08/16/18 12:57 Simvastatin (Zocor) 20 mg PO DAILY [facility]; Protocol Stop: 08/16/18 08:59 Last Admin: 06/19/18 09:16 Dose: 20 mg General: weak HEENT: NC/AT Neck: Supple Lungs: CTAB Cardiovascular: RRR, Normal S1, Normal S2 Abdomen: soft Extremities: clear Neurological: no change Internal Medicine Assmt/Plan - Assessment Assessment: leukocytosis r/o sepsis htn dementia cd dm hyperlipidemia - Plan Plan: as per order sheet labs vitals antibiotics as per ID Nutritional Asmnt/Malnutr-PDOC - Dietary Evaluation Malnutrition Findings (Please click <Entered> for more info): Nutritional Asmnt/Malnutrition Start: 06/17/18 16: 33 Text: Status: Complete Freq: Protocol: Document 06/17/18 16:34 LCHENG (Rec: 06/17/18 16:52 LCHENG [email or web address]) Nutritional Asmnt/Malnutrition Patient General Information Nutritional Screening High Risk Diagnosis dehydration Pertinent Medical Hx/Surgical Hx HTN, DM, dementia, alzhemers Subjective Information Pt seen sleeping in bed at time of visit d/t medication per RN. Current Diet Order/ Nutrition Support CCHO 60-gm, mech soft, low sodium Pertinent Medications culturelle, levaquin, glucophage, remeron, nacl 0.9% Pertinent Labs 06/17 Glucose 180, POC 141 Nutritional Hx/Data Height 1.57 m Height (Calculated Centimeters) 157.5 Current Weight (lbs) 56.699 kg Weight (Calculated Kilograms) 56.7 Weight (Calculated Grams) 43134.0 [place] Body Weight 110 Body Mass Index (BMI) 22.8 Weight Status Approriate GI Symptoms GI Symptoms None Last BM not indicated Difficult in: None Skin Integrity/Comment: intact Current %PO Poor (25-49%) Estimated Nutritional Goals BEE in Kcals: Using Current wt Calories/Kcals/Kg 25-30 Kcals Calculated 1497-2160 Protein: Using Current wt Protein g/k-1.2 Protein Calculated 57-68 Fluid: ml 1425-1710ml (1ml/kcal) Nutritional Problem 1. Problem Problem altered nutrition related labs Etiology hyperglycemia Signs/Symptoms: glucose 180 Malnutrition Alert Is there a minimum of two criteria No selected? Query Text:Check all the applicable criteria. A minimum of two criteria are recommended for diagnosis of either severe or non-severe malnutrition. Malnutrition Related to Morbid Obesity Malnutrition related to morbid obesity No Intervention/Recommendation Comments 1. Continue with mech soft low sodium CCHO 60gm diet as ordered. Nurses to assist pt with meals as needed. 2. Monitor PO intake, wt, labs and skin integrity 3. F/U as high risk in 2-3 days Expected Outcomes/Goals Expected Outcomes/Goals 1. PO intake to meet at least 75% of nutritional needs. 2. Wt stability, skin to remain intact, labs to approach WNL.
[2018-06-19] MEDS: Levofloxacin 500mg/100mL 500 MG/100 ML BAG IV SCH (17:32)
[2018-06-20] MEDS: Sodium Chloride 0.9% 1,000 ML IV SCH (00:22)
[2018-06-20 05:13] LABS: % BASOPHILS 0.3 % (0.0-2.0); % EOSINOPHILS 0.5 % (0.0-5.0); % LYMPHOCYTES 14.4 % (20.0-50.0); % MONOCYTES 10.2 % (2.0-10.0); % NEUTROPHILS 74.6 % (40.0-80.0); EOSINOPHILE ABSOLUTE 0.1 Th/cmm (0.1-0.4); HEMATOCRIT 40.6 % (41.0-60); HEMOGLOBIN 13.4 gm/dL (12-16); LYMPHOCYTE ABSOLUTE 1.5 Th/cmm (1.5-3.0); MEAN CELL VOLUME 95.2 fl (81-100); MEAN CORPUSCULAR HEMOGLOBIN 31.3 pg (27.0-31.0); MEAN CORPUSCULAR HGB CONC 32.9 pg (28.0-36.0); MEAN PLATELET VOLUME 8.4 fl; MONOCYTE ABSOLUTE 1.1 Th/cmm (0.3-1.0); NEUTROPHILE ABSOLUTE 7.6 Th/cmm (1.8-8.0); PLATELET COUNT 260 Th/cmm (150-400); RED BLOOD COUNT 4.27 Mil/cmm (3.80-5.20); WHITE BLOOD COUNT 10.3 Th/cmm (4.8-10.8)
[2018-06-20 05:49] LABS: ALB/GLOB RATIO 1.2 (1.0-1.8); ALBUMIN 3.5 gm/dL (3.7-5.3); ALKALINE PHOSPHATASE 70 U/L (34-104); BILIRUBIN,TOTAL 0.6 mg/dL (0.3-1.0); BUN - UREA NITROGEN 10 mg/dL (7-25); CALCIUM SERUM 9.1 mg/dL (8.6-10.3); CARBON DIOXIDE 31.3 mEq/L (21.0-31.0); CHLORIDE 98 mEq/L (98-107); CREATININE - SERUM 0.5 mg/dL (0.6-1.2); GLUCOSE 216 mg/dL (70-105); POTASSIUM SERUM 3.3 mEq/L (3.5-5.1); SGOT 9 U/L (13-39); SGPT/ALT 8 U/L (7-52); SODIUM SERUM 137 mEq/L (136-145); TOTAL PROTEIN,SERUM 6.5 gm/dL (6.0-8.3)
[2018-06-20] MEDS ORDERED: Potassium Chloride 20 mEq ER Tab PO ONE (08:47)
[2018-06-20] MEDS: Lactobacillus Rhamnosus GG 15 Billion CFU CAP.SPRINK PO SCH (09:50)
[2018-06-20] MEDS: Aspirin 81mg Chewable Tab PO SCH (09:51)
--- NOTE | 2018-06-20 10:20 | Internal Medicine Prog Note ---
Internal Medicine Subjective - Subjective Service Date: 06/20/18 Patient seen and examined:: with staff, chart reviewed Patient is:: awake, verbal, talking, other (admitted for fever tachycardia r/o sepsis) Patient Complaints of:: other (weakness) Per staff patient has:: no adverse event, no episodes of fall Internal Medicine Objective - Results Result Diagrams: 06/20/18 05:00 06/20/18 05:00 Recent Labs: Laboratory Last Values WBC 10.3 Th/cmm (4.8-10.8) 06/20/18 05:00 RBC 4.27 Mil/cmm (3.80-5.20) 06/20/18 05:00 Hgb 13.4 gm/dL (12-16) 06/20/18 05:00 Hct 40.6 % (41.0-60) L 06/20/18 05:00 MCV 95.2 fl (81-100) 06/20/18 05:00 MCH 31.3 pg (27.0-31.0) H 06/20/18 05:00 MCHC Differential 32.9 pg (28.0-36.0) 06/20/18 05:00 RDW 12.0 % (11.5-20.0) 06/20/18 05:00 Plt Count 260 Th/cmm (150-400) 06/20/18 05:00 MPV 8.4 fl 06/20/18 05:00 Neutrophils % 74.6 % (40.0-80.0) 06/20/18 05:00 Lymphocytes % 14.4 % (20.0-50.0) L 06/20/18 05:00 Monocytes % 10.2 % (2.0-10.0) H 06/20/18 05:00 Eosinophils % 0.5 % (0.0-5.0) 06/20/18 05:00 Basophils % 0.3 % (0.0-2.0) 06/20/18 05:00 Sodium 137 mEq/L (136-145) 06/20/18 05:00 Potassium 3.3 mEq/L (3.5-5.1) L 06/20/18 05:00 Chloride 98 mEq/L (98-107) 06/20/18 05:00 Carbon Dioxide 31.3 mEq/L (21.0-31.0) H 06/20/18 05:00 Anion Gap 11.0 (7.0-16.0) 06/20/18 05:00 BUN 10 mg/dL (7-25) 06/20/18 05:00 Creatinine 0.5 mg/dL (0.6-1.2) L 06/20/18 05:00 Est GFR ( Amer) TNP 06/20/18 05:00 Est GFR (Non-Af Amer) TNP 06/20/18 05:00 BUN/Creatinine Ratio 20.0 06/20/18 05:00 Glucose 216 mg/dL (70-105) H 06/20/18 05:00 POC Glucose 165 MG/DL (70 - 105) H 06/19/18 17:44 Whole Bld Lactic Acid 1.45 mmol/L (0.60-1.99) 06/16/18 16:35 Calcium 9.1 mg/dL (8.6-10.3) 06/20/18 05:00 Total Bilirubin 0.6 mg/dL (0.3-1.0) 06/20/18 05:00 AST 9 U/L (13-39) L 06/20/18 05:00 ALT 8 U/L (7-52) 06/20/18 05:00 Alkaline Phosphatase 70 U/L (34-104) 06/20/18 05:00 Total Protein 6.5 gm/dL (6.0-8.3) 06/20/18 05:00 Albumin 3.5 gm/dL (3.7-5.3) L 06/20/18 05:00 Globulin 3.0 gm/dL 06/20/18 05:00 Albumin/Globulin Ratio 1.2 (1.0-1.8) 06/20/18 05:00 Urine Source CATH 06/16/18 15:30 Urine Color YELLOW 06/16/18 15:30 Urine Clarity CLEAR (CLEAR) 06/16/18 15:30 Urine pH 6.5 (4.6 - 8.0) 06/16/18 15:30 Ur Specific [place] <= 1.005 (1.005-1.030) 06/16/18 15:30 Urine Protein NEGATIVE mg/dL (NEGATIVE) 06/16/18 15:30 Urine Glucose (UA) NEGATIVE mg/dL (NEGATIVE) 06/16/18 15:30 Urine Ketones NEGATIVE mg/dL (NEGATIVE) 06/16/18 15:30 Urine Blood SMALL (NEGATIVE) H 06/16/18 15:30 Urine Nitrate NEGATIVE (NEGATIVE) 06/16/18 15:30 Urine Bilirubin NEGATIVE (NEGATIVE) 06/16/18 15:30 Urine Urobilinogen 2.0 E.U./dL (0.2 - 1.0) 06/16/18 15:30 Ur Leukocyte Esterase NEGATIVE (NEGATIVE) 06/16/18 15:30 Urine RBC NONE SEEN /hpf (0-5) 06/16/18 15:30 Urine WBC 0-2 /hpf (0-5) 06/16/18 15:30 Ur Epithelial Cells FEW /lpf (FEW) 06/16/18 15:30 Urine Bacteria FEW /hpf (NONE SEEN) 06/16/18 15:30 - Physical Exam Vitals and I&O: Vital Signs Temp 98.5 F 06/20/18 04:00 Pulse 86 06/20/18 09:52 Resp 18 06/20/18 04:00 BP 134/64 06/20/18 09:52 Pulse Ox 98 06/20/18 04:00 Intake & Output 06/19/18 06/20/18 06/20/18 18:59 06:59 18:59 Intake Total 1360 1000 Balance 1360 1000 Weight (lbs) 55.021 kg Intake: Intake, IV Amount 1000 1000 Sodium Chloride 0.9% 1, 1000 1000 000 ml @ 150 mls/hr IV . Q6H40M [facility] Rx#:[id number] Oral 360 Other: # Voids 3 # Bowel Movements 0 Weight Source Bedscale Active Medications: Current Medications Acetaminophen (Tylenol) 650 mg PO Q4HR PRN PRN Reason: Mild Pain / Temp above 100 Stop: 08/15/18 12:54 Last Admin: 06/19/18 19:56 Dose: 650 mg Al Hydrox/Mg Hydrox/Simethicone (Maalox) 30 ml PO Q4HR PRN PRN Reason: GI DISTRESS Stop: 08/15/18 12:54 Aspirin (Aspirin Chewable) 81 mg PO DAILY [facility] Stop: 08/16/18 08:59 Last Admin: 06/20/18 09:51 Dose: 81 mg Clopidogrel Bisulfate (Plavix) 75 mg PO DAILY [facility] Stop: 08/16/18 08:59 Last Admin: 06/20/18 09:50 Dose: 75 mg Donepezil HCl (Aricept) 10 mg PO DAILY [facility] Stop: 08/16/18 08:59 Last Admin: 06/20/18 09:50 Dose: 10 mg Hydrochlorothiazide (Hctz) 25 mg PO DAILY [facility] Stop: 08/16/18 08:59 Last Admin: 06/20/18 09:51 Dose: 25 mg Sodium Chloride (Nacl 0.9%) 1,000 mls @ 150 mls/hr IV .Q6H40M [facility] Stop: 08/15/18 13:14 Last Admin: 06/20/18 00:22 Dose: 150 mls/hr Levofloxacin (Levaquin Pb) 500 mg in 100 mls @ 100 mls/hr IV Q24HR [facility] Stop: 08/15/18 16:59 Last Admin: 06/19/18 17:32 Dose: 100 mls/hr Lactobacillus Rhamnosus (Culturelle 15b) 1 each PO DAILY [facility] Stop: 08/17/18 08:59 Last Admin: 06/20/18 09:50 Dose: 1 each Lisinopril (Zestril) 10 mg PO DAILY [facility] Stop: 08/16/18 08:59 Last Admin: 06/20/18 09:52 Dose: 10 mg Lorazepam (Ativan) 0.5 mg PO DAILY [facility]; Protocol Stop: 08/16/18 08:59 Last Admin: 06/20/18 09:54 Dose: Not Given Lorazepam (Ativan) 1 mg PO Q4HR PRN; Protocol PRN Reason: Agitation Stop: 08/15/18 21:28 Last Admin: 06/20/18 03:18 Dose: 1 mg Magnesium Hydroxide (Milk Of Magnesia) 30 ml PO HS PRN PRN Reason: Constipation Stop: 08/15/18 12:54 Metformin HCl (Glucophage) 500 mg PO BIDWM [facility] Stop: 08/15/18 17:59 Last Admin: 06/20/18 09:56 Dose: 500 mg Mirtazapine (Remeron) 15 mg PO HS [facility]; Protocol Stop: 08/15/18 20:59 Last Admin: 06/19/18 20:06 Dose: 15 mg Miscellaneous (Probiotic Screen) 1 ea MC PRN PRN PRN Reason: PROTOCOL Stop: 08/16/18 12:57 Simvastatin (Zocor) 20 mg PO DAILY [facility]; Protocol Stop: 08/16/18 08:59 Last Admin: 06/20/18 09:50 Dose: 20 mg General: weak, demented HEENT: NC/AT Neck: Supple Lungs: CTAB Cardiovascular: RRR, Normal S1, Normal S2 Abdomen: soft Extremities: clear Neurological: no change Internal Medicine Assmt/Plan - Assessment Assessment: leukocytosis r/o sepsis htn dementia cd dm hyperlipidemia - Plan Plan: as per order sheet labs vitals antibiotics cpm as per ID Nutritional Asmnt/Malnutr-PDOC - Dietary Evaluation Malnutrition Findings (Please click <Entered> for more info): Nutritional Asmnt/Malnutrition Start: 06/17/18 16: 33 Text: Status: Complete Freq: Protocol: Document 06/17/18 16:34 LCHENG (Rec: 06/17/18 16:52 LCHENG [email or web address]) Nutritional Asmnt/Malnutrition Patient General Information Nutritional Screening High Risk Diagnosis dehydration Pertinent Medical Hx/Surgical Hx HTN, DM, dementia, alzhemers Subjective Information Pt seen sleeping in bed at time of visit d/t medication per RN. Current Diet Order/ Nutrition Support CCHO 60-gm, mech soft, low sodium Pertinent Medications culturelle, levaquin, glucophage, remeron, nacl 0.9% Pertinent Labs 06/17 Glucose 180, POC 141 Nutritional Hx/Data Height 1.57 m Height (Calculated Centimeters) 157.5 Current Weight (lbs) 56.699 kg Weight (Calculated Kilograms) 56.7 Weight (Calculated Grams) 58839.0 [place] Body Weight 110 Body Mass Index (BMI) 22.8 Weight Status Approriate GI Symptoms GI Symptoms None Last BM not indicated Difficult in: None Skin Integrity/Comment: intact Current %PO Poor (25-49%) Estimated Nutritional Goals BEE in Kcals: Using Current wt Calories/Kcals/Kg 25-30 Kcals Calculated 6438-2176 Protein: Using Current wt Protein g/k-1.2 Protein Calculated 57-68 Fluid: ml 1425-1710ml (1ml/kcal) Nutritional Problem 1. Problem Problem altered nutrition related labs Etiology hyperglycemia Signs/Symptoms: glucose 180 Malnutrition Alert Is there a minimum of two criteria No selected? Query Text:Check all the applicable criteria. A minimum of two criteria are recommended for diagnosis of either severe or non-severe malnutrition. Malnutrition Related to Morbid Obesity Malnutrition related to morbid obesity No Intervention/Recommendation Comments 1. Continue with [facility] soft low sodium CCHO 60gm diet as ordered. Nurses to assist pt with meals as needed. 2. Monitor PO intake, wt, labs and skin integrity 3. F/U as high risk in 2-3 days Expected Outcomes/Goals Expected Outcomes/Goals 1. PO intake to meet at least 75% of nutritional needs. 2. Wt stability, skin to remain intact, labs to approach WNL.
[2018-06-20] MEDS ORDERED: Sodium Chloride 0.9% 1,000 ML IV SCH (11:05)
--- NOTE | 2018-06-20 14:58 | Infectious Disease Prog Note ---
Infectious Disease Subjective - Review of Systems Service Date: 06/20/18 Subjective: There is no new change, no fever Infectious Disease Objective - Results Result Diagrams: 06/20/18 05:00 06/20/18 05:00 Recent Labs: Laboratory Last Values WBC 10.3 Th/cmm (4.8-10.8) 06/20/18 05:00 RBC 4.27 Mil/cmm (3.80-5.20) 06/20/18 05:00 Hgb 13.4 gm/dL (12-16) 06/20/18 05:00 Hct 40.6 % (41.0-60) L 06/20/18 05:00 MCV 95.2 fl (81-100) 06/20/18 05:00 MCH 31.3 pg (27.0-31.0) H 06/20/18 05:00 MCHC Differential 32.9 pg (28.0-36.0) 06/20/18 05:00 RDW 12.0 % (11.5-20.0) 06/20/18 05:00 Plt Count 260 Th/cmm (150-400) 06/20/18 05:00 MPV 8.4 fl 06/20/18 05:00 Neutrophils % 74.6 % (40.0-80.0) 06/20/18 05:00 Lymphocytes % 14.4 % (20.0-50.0) L 06/20/18 05:00 Monocytes % 10.2 % (2.0-10.0) H 06/20/18 05:00 Eosinophils % 0.5 % (0.0-5.0) 06/20/18 05:00 Basophils % 0.3 % (0.0-2.0) 06/20/18 05:00 Sodium 137 mEq/L (136-145) 06/20/18 05:00 Potassium 3.3 mEq/L (3.5-5.1) L 06/20/18 05:00 Chloride 98 mEq/L (98-107) 06/20/18 05:00 Carbon Dioxide 31.3 mEq/L (21.0-31.0) H 06/20/18 05:00 Anion Gap 11.0 (7.0-16.0) 06/20/18 05:00 BUN 10 mg/dL (7-25) 06/20/18 05:00 Creatinine 0.5 mg/dL (0.6-1.2) L 06/20/18 05:00 Est GFR ( Amer) TNP 06/20/18 05:00 Est GFR (Non-Af Amer) TNP 06/20/18 05:00 BUN/Creatinine Ratio 20.0 06/20/18 05:00 Glucose 216 mg/dL (70-105) H 06/20/18 05:00 POC Glucose 165 MG/DL (70 - 105) H 06/19/18 17:44 Whole Bld Lactic Acid 1.45 mmol/L (0.60-1.99) 06/16/18 16:35 Calcium 9.1 mg/dL (8.6-10.3) 06/20/18 05:00 Total Bilirubin 0.6 mg/dL (0.3-1.0) 06/20/18 05:00 AST 9 U/L (13-39) L 06/20/18 05:00 ALT 8 U/L (7-52) 06/20/18 05:00 Alkaline Phosphatase 70 U/L (34-104) 06/20/18 05:00 Total Protein 6.5 gm/dL (6.0-8.3) 06/20/18 05:00 Albumin 3.5 gm/dL (3.7-5.3) L 06/20/18 05:00 Globulin 3.0 gm/dL 06/20/18 05:00 Albumin/Globulin Ratio 1.2 (1.0-1.8) 06/20/18 05:00 Urine Source CATH 06/16/18 15:30 Urine Color YELLOW 06/16/18 15:30 Urine Clarity CLEAR (CLEAR) 06/16/18 15:30 Urine pH 6.5 (4.6 - 8.0) 06/16/18 15:30 Ur Specific [place] <= 1.005 (1.005-1.030) 06/16/18 15:30 Urine Protein NEGATIVE mg/dL (NEGATIVE) 06/16/18 15:30 Urine Glucose (UA) NEGATIVE mg/dL (NEGATIVE) 06/16/18 15:30 Urine Ketones NEGATIVE mg/dL (NEGATIVE) 06/16/18 15:30 Urine Blood SMALL (NEGATIVE) H 06/16/18 15:30 Urine Nitrate NEGATIVE (NEGATIVE) 06/16/18 15:30 Urine Bilirubin NEGATIVE (NEGATIVE) 06/16/18 15:30 Urine Urobilinogen 2.0 E.U./dL (0.2 - 1.0) 06/16/18 15:30 Ur Leukocyte Esterase NEGATIVE (NEGATIVE) 06/16/18 15:30 Urine RBC NONE SEEN /hpf (0-5) 06/16/18 15:30 Urine WBC 0-2 /hpf (0-5) 06/16/18 15:30 Ur Epithelial Cells FEW /lpf (FEW) 06/16/18 15:30 Urine Bacteria FEW /hpf (NONE SEEN) 06/16/18 15:30 - Physical Exam Vitals and I&O: Vital Signs Temp 98.5 F 06/20/18 08:00 Pulse 86 06/20/18 09:52 Resp 20 06/20/18 08:00 BP 134/64 06/20/18 09:52 Pulse Ox 98 06/20/18 08:00 Intake & Output 06/19/18 06/20/18 06/20/18 18:59 06:59 18:59 Intake Total 1360 1000 Balance 1360 1000 Weight (lbs) 55.021 kg Intake: Intake, IV Amount 1000 1000 Sodium Chloride 0.9% 1, 1000 1000 000 ml @ 150 mls/hr IV . Q6H40M [facility] Rx#:[id number] Oral 360 Other: # Voids 3 # Bowel Movements 0 Weight Source Bedscale Active Medications: Current Medications Acetaminophen (Tylenol) 650 mg PO Q4HR PRN PRN Reason: Mild Pain / Temp above 100 Stop: 08/15/18 12:54 Last Admin: 06/19/18 19:56 Dose: 650 mg Al Hydrox/Mg Hydrox/Simethicone (Maalox) 30 ml PO Q4HR PRN PRN Reason: GI DISTRESS Stop: 08/15/18 12:54 Aspirin (Aspirin Chewable) 81 mg PO DAILY [facility] Stop: 08/16/18 08:59 Last Admin: 06/20/18 09:51 Dose: 81 mg Clopidogrel Bisulfate (Plavix) 75 mg PO DAILY [facility] Stop: 08/16/18 08:59 Last Admin: 06/20/18 09:50 Dose: 75 mg Donepezil HCl (Aricept) 10 mg PO DAILY [facility] Stop: 08/16/18 08:59 Last Admin: 06/20/18 09:50 Dose: 10 mg Hydrochlorothiazide (Hctz) 25 mg PO DAILY [facility] Stop: 08/16/18 08:59 Last Admin: 06/20/18 09:51 Dose: 25 mg Levofloxacin (Levaquin Pb) 500 mg in 100 mls @ 100 mls/hr IV Q24HR [facility] Stop: 08/15/18 16:59 Last Admin: 06/19/18 17:32 Dose: 100 mls/hr Sodium Chloride (Nacl 0.9%) 1,000 mls @ 100 mls/hr IV .Q10H [facility] Stop: 08/19/18 11:04 Lactobacillus Rhamnosus (Culturelle 15b) 1 each PO DAILY [facility] Stop: 08/17/18 08:59 Last Admin: 06/20/18 09:50 Dose: 1 each Lisinopril (Zestril) 10 mg PO DAILY [facility] Stop: 08/16/18 08:59 Last Admin: 06/20/18 09:52 Dose: 10 mg Lorazepam (Ativan) 0.5 mg PO DAILY [facility]; Protocol Stop: 08/16/18 08:59 Last Admin: 06/20/18 09:54 Dose: Not Given Lorazepam (Ativan) 1 mg PO Q4HR PRN; Protocol PRN Reason: Agitation Stop: 08/15/18 21:28 Last Admin: 06/20/18 03:18 Dose: 1 mg Magnesium Hydroxide (Milk Of Magnesia) 30 ml PO HS PRN PRN Reason: Constipation Stop: 08/15/18 12:54 Metformin HCl (Glucophage) 500 mg PO BIDWM [facility] Stop: 08/15/18 17:59 Last Admin: 06/20/18 09:56 Dose: 500 mg Mirtazapine (Remeron) 15 mg PO HS [facility]; Protocol Stop: 08/15/18 20:59 Last Admin: 06/19/18 20:06 Dose: 15 mg Miscellaneous (Probiotic Screen) 1 ea MC PRN PRN PRN Reason: PROTOCOL Stop: 08/16/18 12:57 Simvastatin (Zocor) 20 mg PO DAILY [facility]; Protocol Stop: 08/16/18 08:59 Last Admin: 06/20/18 09:50 Dose: 20 mg General: no acute distress, well developed, well nourished HEENT: atraumatic, normocephalic, PERRLA, EOMI Neck: supple, no thyromegaly Cardiovascular: S1S2, regular Lungs: clear to auscultation bilaterally, clear to percussion Abdomen: soft, no tender, no distended, no hepatomegaly, no splenomegaly Extremities: no cyanosis, no clubbing, no edema Neurological: awake, alert, oriented Skin: intact Infectious Disease Assmt/Plan - Assessment Assessment: 1. Lekocytosis. Improved. 2. Coronary artery disease. 3. Hypertension. 4. Diabetes mellitus. 5. Dementia - Plan Plan: cpm. Complete Levaquin IV or by mouth for 7 days Nutritional Asmnt/Malnutr-PDOC - Dietary Evaluation Malnutrition Findings (Please click <Entered> for more info): Nutritional Asmnt/Malnutrition Start: 06/17/18 16: 33 Text: Status: Complete Freq: Protocol: Document 06/17/18 16:34 LCHENG (Rec: 06/17/18 16:52 [email or web address]) Nutritional Asmnt/Malnutrition Patient General Information Nutritional Screening High Risk Diagnosis dehydration Pertinent Medical Hx/Surgical Hx HTN, DM, dementia, alzhemers Subjective Information Pt seen sleeping in bed at time of visit d/t medication per RN. Current Diet Order/ Nutrition Support CCHO 60-gm, mech soft, low sodium Pertinent Medications culturelle, levaquin, glucophage, remeron, nacl 0.9% Pertinent Labs 06/17 Glucose 180, POC 141 Nutritional Hx/Data Height 1.57 m Height (Calculated Centimeters) 157.5 Current Weight (lbs) 56.699 kg Weight (Calculated Kilograms) 56.7 Weight (Calculated Grams) 80990.0 [place] Body Weight 110 Body Mass Index (BMI) 22.8 Weight Status Approriate GI Symptoms GI Symptoms None Last BM not indicated Difficult in: None Skin Integrity/Comment: intact Current %PO Poor (25-49%) Estimated Nutritional Goals BEE in Kcals: Using Current wt Calories/Kcals/Kg 25-30 Kcals Calculated 6379-4903 Protein: Using Current wt Protein g/k-1.2 Protein Calculated 57-68 Fluid: ml 1425-1710ml (1ml/kcal) Nutritional Problem 1. Problem Problem altered nutrition related labs Etiology hyperglycemia Signs/Symptoms: glucose 180 Malnutrition Alert Is there a minimum of two criteria No selected? Query Text:Check all the applicable criteria. A minimum of two criteria are recommended for diagnosis of either severe or non-severe malnutrition. Malnutrition Related to Morbid Obesity Malnutrition related to morbid obesity No Intervention/Recommendation Comments 1. Continue with [facility] soft low sodium CCHO 60gm diet as ordered. Nurses to assist pt with meals as needed. 2. Monitor PO intake, wt, labs and skin integrity 3. F/U as high risk in 2-3 days Expected Outcomes/Goals Expected Outcomes/Goals 1. PO intake to meet at least 75% of nutritional needs. 2. Wt stability, skin to remain intact, labs to approach WNL.
[2018-06-20] MEDS: Levofloxacin 500mg/100mL 500 MG/100 ML BAG IV SCH (17:47)
== END 2018-06-20 17:30 | DRG 872 ==
LOC: MSI 11:04
PROVIDERS: ADMIT Internal Medicine; ATTEND Internal Medicine
DX: A41.9 Sepsis, unspecified organism (principal); R00.0 Tachycardia, unspecified; I10 Essential (primary) hypertension; E11.9 Type 2 diabetes mellitus without complications; G30.9 Alzheimer's disease, unspecified; F02.80 Dementia in other diseases classified elsewhere, unspecified severity, without behavioral disturbance, psychotic disturbance, mood disturbance, and anxiety; R62.7 Adult failure to thrive; I25.10 Atherosclerotic heart disease of native coronary artery without angina pectoris; E78.5 Hyperlipidemia, unspecified; Z88.0 Allergy status to penicillin
CPT/HCPCS: 36415-UA; 71045-TC; 80048-TC; 80053-TC; 81001-TC; 82948-90; 83605; 85025-TC; 87086-90; J1956; J7030; Z7610

== ENCOUNTER 2018-08-22 13:22 | Inpatient (IN) | payer MEDICARE, MEDICAID ==
[2018-08-22] MEDS ORDERED: Sodium Chloride 0.9% 500 ML IV ONE (13:51)
--- NOTE | 2018-08-22 13:57 | ED Physician Chart ---
ED Chief Complaint/HPI - Patient Information Date Seen:: 08/22/18 Time Seen:: 13:35 Chief Complaint:: Poor oral intake. History of Present Illness:: Brought in by ambulance because pt has had poor oral intake. Pt is alert and responsive to voice and tactile stimuli. Pt appears to be comfortable but is not cooperative. Pt appears to have dementia and does not answer questions. H & P are thus limited. Info is primarily from review of limited transfer documents. Allergies:: Allergies Allergy/AdvReac Type Severity Reaction Status Date / Time Penicillins Allergy Unknown Verified 07/24/18 13:47 Vitals:: Vital Signs - 8 hr 08/22/18 13:36 Temp 96.3 F HR 78 RR 19 BP 108/41 O2 Sat % 97 Historian:: Medical Records (from transferring facility.) Family MD/PCP:: Dr. Decker LMP:: Postmenopausal. Review:: Nurse's Note Reviewed, Transfer documents Reviewed ED Review of Systems - Review of Systems General/Constitutional: Other (Pt does not cooperate for ROS.) ED Past Medical History - Past Medical History Past Medical History: HTN, DM, CAD, Arthritis, Dementia, Other (anemia) Family History: Other (Pt does not cooperate to provide info on FHx.) Social History: Other (Pt does not cooperate to provide info on SHx.) Employment:: Retired. Surgical History: other (Pt does not cooperate to provide info on Surgical Hx.) Psychiatricy History: Schizophrenia Medication: Reviewed Family Medical History - Family Member Mother History Unknown: Yes Ethnicity: Living Status: Unknown Hx Family HIV: No ED Physical Exam - Physical Examination General/Constitutional: Awake, Alert, No distress, Non-toxic appearing Other Gen/Cons comments:: Well developed cachectic elderly female in NAD. Breathes comfortably, responds to voice and tactile stimuli. Pt does not answer questions and is not cooperative. Head: Atraumatic Eyes: Lids, conjuctiva normal, PERRL, EOMI Skin: No ecchymosis, No lymphadenopathy Other Skin comments:: Slight decrease in skin turgor. ENMT: External ears, nose nl, Nasal exam nl, Oropharynx nl Other ENMT comments:: Mucous membrane is slightly dry. Neck: Nontender, Full ROM w/o pain, No JVD, No nuchal rigidity, No mass Respiratory: Nl effort/Exclusion, Clear to Auscultation, No Wheeze/Rhonchi/Rales Cardio Vascular: RRR, No murmur, gallop, rubs, Carotid/Femoral/Distal pulses equal bilaterally GI: No tenderness/rebounding/guarding, No organomegaly, Normal BS's, Nondistended Other GI comments:: Abdomen is soft. Extremities: No tenderness or effusion, Full ROM, No edema Other Neuro/Psych comments:: Alert and responsive to voice and tactile stimuli. Spontaneous movements noticed in all 4 extremities. Pt does not cooperate for full neurological exam. ED Labs/Radiology/EKG Results - Lab Results Results: Laboratory Results - last 24 hr 08/22/18 08/22/18 08/22/18 14:00 14:00 14:00 WBC 11.7 H RBC 4.15 Hgb 13.1 Hct 39.2 L MCV 94.5 MCH 31.6 H MCHC Differential 33.4 RDW 13.2 Plt Count 291 MPV 9.3 Neutrophils % 80.2 H Lymphocytes % 14.1 L Monocytes % 4.4 Eosinophils % 0.9 Basophils % 0.4 PT 10.3 INR 0.99 PTT (Actin FS) 23.9 L Sodium 138 Potassium 3.2 L Chloride 96 L Carbon Dioxide 31.1 H Anion Gap 14.1 BUN 30 H Creatinine 0.9 Est GFR ( Amer) TNP Est GFR (Non-Af Amer) TNP BUN/Creatinine Ratio 33.3 Glucose 184 H Calcium 10.1 Total Bilirubin 0.5 AST 17 ALT 29 Alkaline Phosphatase 70 Total Protein 7.5 Albumin 4.0 Globulin 3.5 Albumin/Globulin Ratio 1.1 Valproic Acid 08/22/18 14:00 WBC RBC Hgb Hct MCV MCH MCHC Differential RDW Plt Count MPV Neutrophils % Lymphocytes % Monocytes % Eosinophils % Basophils % PT INR PTT (Actin FS) Sodium Potassium Chloride Carbon Dioxide Anion Gap BUN Creatinine Est GFR ( Amer) Est GFR (Non-Af Amer) BUN/Creatinine Ratio Glucose Calcium Total Bilirubin AST ALT Alkaline Phosphatase Total Protein Albumin Globulin Albumin/Globulin Ratio Valproic Acid 65.7 Laboratory Last Values WBC 11.7 Th/cmm (4.8-10.8) H 08/22/18 14:00 RBC 4.15 Mil/cmm (3.80-5.20) 08/22/18 14:00 Hgb 13.1 gm/dL (12-16) 08/22/18 14:00 Hct 39.2 % (41.0-60) L 08/22/18 14:00 MCV 94.5 fl (81-100) 08/22/18 14:00 MCH 31.6 pg (27.0-31.0) H 08/22/18 14:00 MCHC Differential 33.4 pg (28.0-36.0) 08/22/18 14:00 RDW 13.2 % (11.5-20.0) 08/22/18 14:00 Plt Count 291 Th/cmm (150-400) 08/22/18 14:00 MPV 9.3 fl 08/22/18 14:00 Neutrophils % 80.2 % (40.0-80.0) H 08/22/18 14:00 Lymphocytes % 14.1 % (20.0-50.0) L 08/22/18 14:00 Monocytes % 4.4 % (2.0-10.0) 08/22/18 14:00 Eosinophils % 0.9 % (0.0-5.0) 08/22/18 14:00 Basophils % 0.4 % (0.0-2.0) 08/22/18 14:00 PT 10.3 SECONDS (9.5-11.5) 08/22/18 14:00 INR 0.99 (0.5-1.4) 08/22/18 14:00 PTT (Actin FS) 23.9 SECONDS (26.0-38.0) L 08/22/18 14:00 Sodium 138 mEq/L (136-145) 08/22/18 14:00 Potassium 3.2 mEq/L (3.5-5.1) L 08/22/18 14:00 Chloride 96 mEq/L (98-107) L 08/22/18 14:00 Carbon Dioxide 31.1 mEq/L (21.0-31.0) H 08/22/18 14:00 Anion Gap 14.1 (7.0-16.0) 08/22/18 14:00 BUN 30 mg/dL (7-25) H 08/22/18 14:00 Creatinine 0.9 mg/dL (0.6-1.2) 08/22/18 14:00 Est GFR ( Amer) TNP 08/22/18 14:00 Est GFR (Non-Af Amer) TNP 08/22/18 14:00 BUN/Creatinine Ratio 33.3 08/22/18 14:00 Glucose 184 mg/dL (70-105) H 08/22/18 14:00 Calcium 10.1 mg/dL (8.6-10.3) 08/22/18 14:00 Total Bilirubin 0.5 mg/dL (0.3-1.0) 08/22/18 14:00 AST 17 U/L (13-39) 08/22/18 14:00 ALT 29 U/L (7-52) 08/22/18 14:00 Alkaline Phosphatase 70 U/L (34-104) 08/22/18 14:00 Total Protein 7.5 gm/dL (6.0-8.3) 08/22/18 14:00 Albumin 4.0 gm/dL (3.7-5.3) 08/22/18 14:00 Globulin 3.5 gm/dL 08/22/18 14:00 Albumin/Globulin Ratio 1.1 (1.0-1.8) 08/22/18 14:00 Urine Source [place] 08/22/18 14:40 Urine Color YELLOW 08/22/18 14:40 Urine Clarity CLOUDY (CLEAR) H 08/22/18 14:40 Urine pH 8.5 (4.6 - 8.0) 08/22/18 14:40 Ur Specific [place] 1.010 (1.005-1.030) 08/22/18 14:40 Urine Protein 100 mg/dL (NEGATIVE) H 08/22/18 14:40 Urine Glucose (UA) NEGATIVE mg/dL (NEGATIVE) 08/22/18 14:40 Urine Ketones TRACE mg/dL (NEGATIVE) 08/22/18 14:40 Urine Blood NEGATIVE (NEGATIVE) 08/22/18 14:40 Urine Nitrate POSITIVE (NEGATIVE) H 08/22/18 14:40 Urine Bilirubin SMALL (NEGATIVE) H 08/22/18 14:40 Urine Urobilinogen 2.0 E.U./dL (0.2 - 1.0) 08/22/18 14:40 Ur Leukocyte Esterase LARGE (NEGATIVE) H 08/22/18 14:40 Urine RBC 0-2 /hpf (0-5) 08/22/18 14:40 Urine WBC 25-50 /hpf (0-5) H 08/22/18 14:40 Ur Epithelial Cells FEW /lpf (FEW) 08/22/18 14:40 Urine Bacteria MANY /hpf (NONE SEEN) H 08/22/18 14:40 Valproic Acid 65.7 ug/mL (50.0-100.0) 08/22/18 14:00 Urine culture is pending. ED Septic Shock - . Is Septic Shock (SBP<90, OR Lactate>4 mmol\L) present?: No - <6hrs of presentation: Vital Signs: Vital Signs - 8 hr 08/22/18 13:36 Temp 96.3 F HR 78 RR 19 BP 108/41 O2 Sat % 97 ED Reassessment (Disposition) - Reassessment Reassessment:: 1520 Pt is more awake and active after IV hydration. Pt remains stable and comfortable. 1614 Case was discussed with Dr. Decker with pertinent info reviewed. Pt is to be admitted to [facility] his care. Reassessment Condition:: Improved - Diagnosis Diagnosis:: Failure to thrive with poor oral intake. Urinary tract infection. Dehydration. Diabetes mellitus. H/O HTN. H/O chronic anemia. Dementia - Patient Disposition Admitted to:: Med/Surg Admitting Medical Physician:: Yuliana Decker Time:: 16:15 Condition at Disposition:: Stable, Improved
[2018-08-22 14:19] LABS: EOSINOPHILE ABSOLUTE 0.1 Th/cmm (0.1-0.4); LYMPHOCYTE ABSOLUTE 1.6 Th/cmm (1.5-3.0)
[2018-08-22 14:21] LABS: % BASOPHILS 0.4 % (0.0-2.0); % EOSINOPHILS 0.9 % (0.0-5.0); % LYMPHOCYTES 14.1 % (20.0-50.0); % MONOCYTES 4.4 % (2.0-10.0); % NEUTROPHILS 80.2 % (40.0-80.0); HEMATOCRIT 39.2 % (41.0-60); HEMOGLOBIN 13.1 gm/dL (12-16); MEAN CELL VOLUME 94.5 fl (81-100); MEAN CORPUSCULAR HEMOGLOBIN 31.6 pg (27.0-31.0); MEAN CORPUSCULAR HGB CONC 33.4 pg (28.0-36.0); MEAN PLATELET VOLUME 9.3 fl; MONOCYTE ABSOLUTE 0.5 Th/cmm (0.3-1.0); NEUTROPHILE ABSOLUTE 9.5 Th/cmm (1.8-8.0); PLATELET COUNT 291 Th/cmm (150-400); RED BLOOD COUNT 4.15 Mil/cmm (3.80-5.20); RED CELL DISTRIBUTION WIDTH 13.2 % (11.5-20.0); WHITE BLOOD COUNT 11.7 Th/cmm (4.8-10.8)
[2018-08-22 14:25] LABS: INR 0.99 (0.5-1.4); PROTHROMBIN TIME (TEST) 10.3 SECONDS (9.5-11.5)
[2018-08-22 14:29] LABS: ALB/GLOB RATIO 1.1 (1.0-1.8); ALKALINE PHOSPHATASE 70 U/L (34-104); ANION GAP 14.1 (7.0-16.0); BILIRUBIN,TOTAL 0.5 mg/dL (0.3-1.0); BUN - UREA NITROGEN 30 mg/dL (7-25); CALCIUM SERUM 10.1 mg/dL (8.6-10.3); CARBON DIOXIDE 31.1 mEq/L (21.0-31.0); CHLORIDE 96 mEq/L (98-107); CREATININE - SERUM 0.9 mg/dL (0.6-1.2); GLUCOSE 184 mg/dL (70-105); POTASSIUM SERUM 3.2 mEq/L (3.5-5.1); SGOT 17 U/L (13-39); SGPT/ALT 29 U/L (7-52); SODIUM SERUM 138 mEq/L (136-145); TOTAL PROTEIN,SERUM 7.5 gm/dL (6.0-8.3)
[2018-08-22] MEDS ORDERED: Potassium Chloride 20 mEq ER Tab PO ONE (15:17)
[2018-08-22 15:25] LABS: URINE SOURCE FOLEY PORT
[2018-08-22 15:43] LABS: URINE BILIRUBIN SMALL (NEGATIVE); URINE BLOOD NEGATIVE (NEGATIVE); URINE GLUCOSE (UA) NEGATIVE (NEGATIVE); URINE KETONE TRACE mg/dL (NEGATIVE); URINE LEUKOCYTE ESTERASE LARGE (NEGATIVE); URINE MICROSCOPIC INDICATED? YES; URINE NITRATE POSITIVE (NEGATIVE); URINE PH 8.5 (4.6 - 8.0); URINE PROTEIN 100 mg/dL (NEGATIVE)
[2018-08-22 15:45] LABS: URINE CLARITY CLOUDY (CLEAR); URINE COLOR YELLOW
[2018-08-22 15:48] LABS: URINE RBC 0-2 /hpf (0-5)
[2018-08-22 15:49] LABS: URINE BACTERIA MANY /hpf (NONE SEEN); URINE EPITHELIAL CELLS FEW /lpf (FEW); URINE WBC 25-50 /hpf (0-5)
[2018-08-22] MEDS ORDERED: Levofloxacin 500mg/100mL 500 MG in Premix Fluid 1 BAG IV ONE (15:55)
[2018-08-22] MEDS ORDERED: Levofloxacin 500mg/100mL 500 MG/100 ML BAG IV ONE (16:08)
[2018-08-22] MEDS ORDERED: Potassium Chloride 40 MEQ in Sodium Chloride 0.45% 1,000 ML IV SCH (16:45)
[2018-08-22 18:37] VITALS: BP 107/41
[2018-08-22] MEDS: D5-0.45NS 1,000 ML IV SCH (20:43)
--- NOTE | 2018-08-22 21:24 | History and Physical ---
History of Present Illness - HPI Chief Complaint: Patient was brought into ER due to poor oral intake. HPI: 78 y/o female patient was admitted at [facility] due to poor oral intake. Patient has history of Hypertension, Diabetes, CAD, Arthritis, Dementia, Schizophrenia and Chronic Anemia. Patient had an ER assessment and a complete workup was done. Patient was diagnosed with Failure to thrive, poor oral intake, history of Hypertension, Diabetes, CAD, Arthritis, Dementia, Schizophrenia and Chronic Anemia. I will follow, treat and monitor patient. Patient will continue current treatment plan as ordered. Vital Signs: Last Vital Signs Temp 97.4 F 08/22/18 20:00 Pulse 72 08/22/18 20:00 Resp 19 08/22/18 20:00 BP 101/63 08/22/18 20:00 Pulse Ox 100 08/22/18 20:00 Past Medical History Cardiovascular: Report: CAD, HTN Pulmonary: Report: No Pertinent Hx [employer]: Report: Dementia GI: Report: No Pertinent Hx Psych: Report: Schizophrenia Musculoskeletal: Report: Weakness, Other (Arthritis.) Infectious Disease: Report: No Pertinent Hx Renal/: Report: No Pertinent Hx Endocrine: Report: Diabetes Dermatology: Report: No Pertinent Hx Family Medical History - Family Member Mother History Unknown: Yes Ethnicity: Living Status: Hx Family HIV: No - Medications Home Medications: Home Medication Medication Instructions Recorded Type Acetaminophen [Tylenol] 650 mg PO Q4HR PRN MDD 3gms 07/07/18 History Bisacodyl [Dulcolax 10 Mg Supp] 10 mg RC DAILY PRN 07/07/18 History Clopidogrel Bisulfate [Plavix] 75 mg PO DAILY 07/07/18 History Donepezil Hcl [Aricept] 10 mg PO HS 07/07/18 History Fleet Enema 135 ml RC Q48H PRN 07/07/18 History Hydrochlorothiazide [Hctz*] 25 mg PO DAILY 07/07/18 History Lisinopril 10 mg PO DAILY 07/07/18 History Memantine [Namenda] 5 mg PO BID 07/07/18 History Metformin HCl 500 mg PO BID 07/07/18 History Simvastatin [Zocor*] 20 mg PO QPM 07/07/18 History Acetaminophen [Tylenol Extra 1,000 mg PO Q4HR PRN MDD 3gms 07/24/18 History Strength] Cranberry Fruit Extract [Cranberry] 425 mg PO DAILY 07/24/18 History Insulin Lispro Sliding Scale See Protocol SUBQ BIDAC 07/24/18 History [humaLOG INSULIN SLIDING SCALE] Magnesium Hydroxide [Milk of 30 ml PO HS PRN 07/24/18 History Magnesia] QUEtiapine Fumarate [SEROquel] 25 mg PO BID 07/24/18 History Valproic Acid [Depakene] 250 mg PO BID 07/24/18 History traZODone HCl [Desyrel*] 25 mg PO HS 07/24/18 History Mirtazapine [Remeron] 15 mg PO HS tab 07/27/18 Rx Aspirin [Aspirin Chewable] 81 mg PO DAILY 08/22/18 History Docusate Sodium [Colace] 100 mg PO DAILY 08/22/18 History Lactobacillus Rhamnosus GG 15B 1 each PO DAILY 08/22/18 History [Culturelle 15B] Megace Oral Susp 10 ml PO DAILY 08/22/18 History - Allergies Allergies/Adverse Reactions: Allergies Allergy/AdvReac Type Severity Reaction Status Date / Time Penicillins Allergy Unknown Verified 07/24/18 13:47 - Lab Results All Lab Results last 24 hours: Laboratory Results - last 24 hr 08/22/18 08/22/18 08/22/18 14:00 14:00 14:00 WBC 11.7 H RBC 4.15 Hgb 13.1 Hct 39.2 L MCV 94.5 MCH 31.6 H MCHC Differential 33.4 RDW 13.2 Plt Count 291 MPV 9.3 Neutrophils % 80.2 H Lymphocytes % 14.1 L Monocytes % 4.4 Eosinophils % 0.9 Basophils % 0.4 PT 10.3 INR 0.99 PTT (Actin FS) 23.9 L Sodium 138 Potassium 3.2 L Chloride 96 L Carbon Dioxide 31.1 H Anion Gap 14.1 BUN 30 H Creatinine 0.9 Est GFR ( Amer) TNP Est GFR (Non-Af Amer) TNP BUN/Creatinine Ratio 33.3 Glucose 184 H Calcium 10.1 Total Bilirubin 0.5 AST 17 ALT 29 Alkaline Phosphatase 70 Total Protein 7.5 Albumin 4.0 Globulin 3.5 Albumin/Globulin Ratio 1.1 Urine Source Urine Color Urine Clarity Urine pH Ur Specific [place] Urine Protein Urine Glucose (UA) Urine Ketones Urine Blood Urine Nitrate Urine Bilirubin Urine Urobilinogen Ur Leukocyte Esterase Urine RBC Urine WBC Ur Epithelial Cells Urine Bacteria Valproic Acid 08/22/18 08/22/18 14:00 14:40 WBC RBC Hgb Hct MCV MCH MCHC Differential RDW Plt Count MPV Neutrophils % Lymphocytes % Monocytes % Eosinophils % Basophils % PT INR PTT (Actin FS) Sodium Potassium Chloride Carbon Dioxide Anion Gap BUN Creatinine Est GFR ( Amer) Est GFR (Non-Af Amer) BUN/Creatinine Ratio Glucose Calcium Total Bilirubin AST ALT Alkaline Phosphatase Total Protein Albumin Globulin Albumin/Globulin Ratio Urine Source [place] Urine Color YELLOW Urine Clarity CLOUDY H Urine pH 8.5 Ur Specific [place] 1.010 Urine Protein 100 H Urine Glucose (UA) NEGATIVE Urine Ketones TRACE Urine Blood NEGATIVE Urine Nitrate POSITIVE H Urine Bilirubin SMALL H Urine Urobilinogen 2.0 Ur Leukocyte Esterase LARGE H Urine RBC 0-2 Urine WBC 25-50 H Ur Epithelial Cells FEW Urine Bacteria MANY H Valproic Acid 65.7 - Assessment Assessment: Htn Diabetes mellitus CAD Arthritis Dementia Chronic anemia Schizophrenia UTI Current Active Problems Problem Status Onset WEAKNESS, FAILURE TO THRIVE Acute - Plan Plan: Continuation of care Monitor vitals, labs, diet Continue present meds as directed Fall precaution Continue current treatment plan as ordered.
[2018-08-23] MEDS: D5-0.45NS 1,000 ML IV SCH (02:00)
[2018-08-23 05:03] LABS: % BASOPHILS 0.4 % (0.0-2.0); % EOSINOPHILS 0.9 % (0.0-5.0); % LYMPHOCYTES 18.4 % (20.0-50.0); % MONOCYTES 6.4 % (2.0-10.0); % NEUTROPHILS 73.9 % (40.0-80.0); EOSINOPHILE ABSOLUTE 0.1 Th/cmm (0.1-0.4); HEMATOCRIT 33.6 % (41.0-60); HEMOGLOBIN 11.2 gm/dL (12-16); LYMPHOCYTE ABSOLUTE 1.8 Th/cmm (1.5-3.0); MEAN CELL VOLUME 93.8 fl (81-100); MEAN CORPUSCULAR HEMOGLOBIN 31.2 pg (27.0-31.0); MEAN CORPUSCULAR HGB CONC 33.3 pg (28.0-36.0); MEAN PLATELET VOLUME 8.8 fl; MONOCYTE ABSOLUTE 0.6 Th/cmm (0.3-1.0); NEUTROPHILE ABSOLUTE 7.2 Th/cmm (1.8-8.0); PLATELET COUNT 238 Th/cmm (150-400); RED BLOOD COUNT 3.58 Mil/cmm (3.80-5.20); RED CELL DISTRIBUTION WIDTH 13.4 % (11.5-20.0); WHITE BLOOD COUNT 9.7 Th/cmm (4.8-10.8)
[2018-08-23 05:16] LABS: ANION GAP 11.4 (7.0-16.0); BUN - UREA NITROGEN 22 mg/dL (7-25); CALCIUM SERUM 9.2 mg/dL (8.6-10.3); CARBON DIOXIDE 29.3 mEq/L (21.0-31.0); CHLORIDE 104 mEq/L (98-107); CHOLESTEROL 125 mg/dL (<200); CREATININE - SERUM 0.7 mg/dL (0.6-1.2); GLUCOSE 137 mg/dL (70-105); HDL -HIGH DENSITY LIPOPROTEIN 34 mg/dL (23-92); POTASSIUM SERUM 3.7 mEq/L (3.5-5.1); SODIUM SERUM 141 mEq/L (136-145); TRIGLYCERIDES 157 mg/dL (<150)
--- NOTE | 2018-08-23 12:00 | Consultation ---
Consult Note - Consult Note Service Date: 08/23/18 Referring Physician: Yuliana Decker Consult Note: PHYSICIAN Consultation Note: Date of Admission: 08/22/18 Purpose of Consultation: UTI Chief Complaint: Patient CASSI VEGA was admitted to [facility] with FAILURE TO THRIVE, UTI. History of Present Illness: 78-year-old female with past medical history dementia, diabetes mellitus type 2 , schizophrenia, hypertension, coronary artery disease, osteoarthritis for poor oral intake. She lost significant amount of weight loss. On initial evaluation , her temperature was 96.3 F and WBC count was 11,700. basic w/u was performed and UA suggested [pyuria and bacteriuria. ID consult was called for antibiotic management. Past Medical History: Anemia, diabetes mellitus type 2, dementia, schizophrenia , hypertension, coronary artery disease, UTI in the past, osteoarthritis. Diagnoses ANEMIA, UNSPECIFIED (08/22/18) TYPE 2 DIABETES MELLITUS WITHOUT COMPLICATIONS (08/22/18) UNSPECIFIED DEMENTIA WITHOUT BEHAVIORAL DISTURBANCE (08/22/18) SCHIZOPHRENIA, UNSPECIFIED (08/22/18) ESSENTIAL (PRIMARY) HYPERTENSION (08/22/18) ATHSCL HEART DISEASE OF [place] CORONARY ARTERY W/O ANG PCTRS (08/22/18) UNSPECIFIED OSTEOARTHRITIS, UNSPECIFIED SITE (08/22/18) URINARY TRACT INFECTION, SITE NOT SPECIFIED (08/22/18) WEAKNESS (08/22/18) Allergies Allergy/AdvReac Type Severity Reaction Status Date / Time Penicillins Allergy Unknown Verified 07/24/18 13:47 Vital Signs Temp 97.0 F 08/23/18 11:57 Pulse 61 08/23/18 11:57 Resp 18 08/23/18 11:57 BP 112/39 08/23/18 11:57 Pulse Ox 98 08/23/18 11:57 Intake & Output 08/22/18 08/23/18 08/23/18 18:59 06:59 18:59 Intake Total 500 1460 Output Total 300 Balance 500 1160 Weight (lbs) 45.359 kg 45.359 kg Intake: Intake, IV Amount 500 1020 Sodium Chloride 0.9% 500 500 ml @ Wide Open IV .Q0M ONE Rx#:[id number] Oral 440 Output: Urine 300 Stool 0 Other: # Voids 4 Weight Source Bedscale Estimated Laboratory Results - last 24 hr 08/22/18 08/22/18 08/22/18 14:00 14:00 14:00 WBC 11.7 H RBC 4.15 Hgb 13.1 Hct 39.2 L MCV 94.5 MCH 31.6 H MCHC Differential 33.4 RDW 13.2 Plt Count 291 MPV 9.3 Neutrophils % 80.2 H Lymphocytes % 14.1 L Monocytes % 4.4 Eosinophils % 0.9 Basophils % 0.4 PT 10.3 INR 0.99 PTT (Actin FS) 23.9 L Sodium 138 Potassium 3.2 L Chloride 96 L Carbon Dioxide 31.1 H Anion Gap 14.1 BUN 30 H Creatinine 0.9 Est GFR ( Amer) TNP Est GFR (Non-Af Amer) TNP BUN/Creatinine Ratio 33.3 Glucose 184 H POC Glucose Calcium 10.1 Total Bilirubin 0.5 AST 17 ALT 29 Alkaline Phosphatase 70 Total Protein 7.5 Albumin 4.0 Globulin 3.5 Albumin/Globulin Ratio 1.1 Triglycerides Cholesterol LDL Cholesterol Direct HDL Cholesterol Urine Source Urine Color Urine Clarity Urine pH Ur Specific [place] Urine Protein Urine Glucose (UA) Urine Ketones Urine Blood Urine Nitrate Urine Bilirubin Urine Urobilinogen Ur Leukocyte Esterase Urine RBC Urine WBC Ur Epithelial Cells Urine Bacteria Valproic Acid 08/22/18 08/22/18 08/22/18 14:00 14:40 22:04 WBC RBC Hgb Hct MCV MCH MCHC Differential RDW Plt Count MPV Neutrophils % Lymphocytes % Monocytes % Eosinophils % Basophils % PT INR PTT (Actin FS) Sodium Potassium Chloride Carbon Dioxide Anion Gap BUN Creatinine Est GFR ( Amer) Est GFR (Non-Af Amer) BUN/Creatinine Ratio Glucose POC Glucose 89 Calcium Total Bilirubin AST ALT Alkaline Phosphatase Total Protein Albumin Globulin Albumin/Globulin Ratio Triglycerides Cholesterol LDL Cholesterol Direct HDL Cholesterol Urine Source [place] Urine Color YELLOW Urine Clarity CLOUDY H Urine pH 8.5 Ur Specific [place] 1.010 Urine Protein 100 H Urine Glucose (UA) NEGATIVE Urine Ketones TRACE Urine Blood NEGATIVE Urine Nitrate POSITIVE H Urine Bilirubin SMALL H Urine Urobilinogen 2.0 Ur Leukocyte Esterase LARGE H Urine RBC 0-2 Urine WBC 25-50 H Ur Epithelial Cells FEW Urine Bacteria MANY H Valproic Acid 65.7 08/23/18 08/23/18 04:50 04:50 WBC 9.7 RBC 3.58 L Hgb 11.2 L Hct 33.6 L D MCV 93.8 MCH 31.2 H MCHC Differential 33.3 RDW 13.4 Plt Count 238 MPV 8.8 Neutrophils % 73.9 Lymphocytes % 18.4 L Monocytes % 6.4 Eosinophils % 0.9 Basophils % 0.4 PT INR PTT (Actin FS) Sodium 141 Potassium 3.7 Chloride 104 Carbon Dioxide 29.3 Anion Gap 11.4 BUN 22 Creatinine 0.7 Est GFR ( Amer) TNP Est GFR (Non-Af Amer) TNP BUN/Creatinine Ratio 31.4 Glucose 137 H POC Glucose Calcium 9.2 Total Bilirubin AST ALT Alkaline Phosphatase Total Protein Albumin Globulin Albumin/Globulin Ratio Triglycerides 157 H Cholesterol 125 LDL Cholesterol Direct 66 L HDL Cholesterol 34 Urine Source Urine Color Urine Clarity Urine pH Ur Specific [place] Urine Protein Urine Glucose (UA) Urine Ketones Urine Blood Urine Nitrate Urine Bilirubin Urine Urobilinogen Ur Leukocyte Esterase Urine RBC Urine WBC Ur Epithelial Cells Urine Bacteria Valproic Acid Home Medication Medication Instructions Recorded Type Acetaminophen [Tylenol] 650 mg PO Q4HR PRN MDD 3gms 07/07/18 History Bisacodyl [Dulcolax 10 Mg Supp] 10 mg RC DAILY PRN 07/07/18 History Clopidogrel Bisulfate [Plavix] 75 mg PO DAILY 07/07/18 History Donepezil Hcl [Aricept] 10 mg PO HS 07/07/18 History Fleet Enema 135 ml RC Q48H PRN 07/07/18 History Hydrochlorothiazide [Hctz*] 25 mg PO DAILY 07/07/18 History Lisinopril 10 mg PO DAILY 07/07/18 History Memantine [Namenda] 5 mg PO BID 07/07/18 History Metformin HCl 500 mg PO BID 07/07/18 History Simvastatin [Zocor*] 20 mg PO QPM 07/07/18 History Acetaminophen [Tylenol Extra 1,000 mg PO Q4HR PRN MDD 3gms 07/24/18 History Strength] Cranberry Fruit Extract [Cranberry] 425 mg PO DAILY 07/24/18 History Insulin Lispro Sliding Scale See Protocol SUBQ BIDAC 07/24/18 History [humaLOG INSULIN SLIDING SCALE] Magnesium Hydroxide [Milk of 30 ml PO HS PRN 07/24/18 History Magnesia] QUEtiapine Fumarate [SEROquel] 25 mg PO BID 07/24/18 History Valproic Acid [Depakene] 250 mg PO BID 07/24/18 History traZODone HCl [Desyrel*] 25 mg PO HS 07/24/18 History Mirtazapine [Remeron] 15 mg PO HS tab 07/27/18 Rx Aspirin [Aspirin Chewable] 81 mg PO DAILY 08/22/18 History Docusate Sodium [Colace] 100 mg PO DAILY 08/22/18 History Lactobacillus Rhamnosus GG 15B 1 each PO DAILY 08/22/18 History [Culturelle 15B] Megace Oral Susp 10 ml PO DAILY 08/22/18 History Current Medications Generic Name Dose Route Start Last Admin Trade Name Freq PRN Reason Stop Dose Admin Dextrose/Sodium Chloride 1,000 mls @ 100 mls/hr 08/22/18 20:00 08/23/18 02:00 D5-0.45ns IV 10/21/18 19:59 100 mls/hr .Q10H LITA Administration Levofloxacin 250 mg in 50 mls @ 50 mls/hr 08/23/18 16:00 Levaquin Pb IV 10/22/18 15:59 Q24HR LITA Protocol Pneumococcal Polyvalent Vaccine 0.5 ml 08/24/18 09:00 Pneumovax IM 08/24/18 09:01 .ONCE ONE Review of Systems: A 12 point ROS was reviewed with the pertinent positive and negatives noted in the HPI. Social History Smoking Status Never smoker Drug Use No Alcohol Use No Family Medical History Family Medical History Start: 08/22/18 17: 48 Freq: ONCE Status: Active Protocol: Document 08/22/18 17:48 [email or web address] (Rec: 08/22/18 19:29 [email or web address] [id number]) Family Medical History Mother Ethnicity Living Status Physical Exam: General: cachectic, not in acute distress HEENT: Head: NC NT. Oral cavity: Moist, pink tongue, eyes: Pupils are PERRLA. EOMI. Pallor present, no icterus. Neck: Supple, no JVD, no carotid bruit. Cardio: S1 and S2 WNL, no murmur. Respiratory: CTAP. Abdominal: Soft NT ND BS present. Genital/Urinary: Extremities: NCCE. Neurological: AAOx3. Assessment: 1. UTI. 2. Protein calorie malnutrition. 3. HTN. 4. CAD. 5. Anemia. 6. Diabetes mellitus type 2. 7. Dementia 8. Schizophrenia. 9. Hypertension. 10. Osteoarthritis. 11. failure to thrive. Plan: Continue Levaquin. depending on the culture report will define final antibiotic therapy, likely po if possible. Waiting for G tube placement. 0 Thank you, Dr Decker for involving me in taking care of this patient. Signed, Zackery Duke M.D. 158
[2018-08-23] MEDS ORDERED: Acetaminophen 500 MG TAB PO PRN (14:12)
[2018-08-23] MEDS ORDERED: Magnesium Hydroxide (MOM) 30 mL UDC PO PRN (14:12)
[2018-08-23] MEDS ORDERED: Fleet Enema 135 mL RC PRN (14:12)
--- NOTE | 2018-08-23 14:23 | Internal Medicine Prog Note ---
Internal Medicine Subjective - Subjective Service Date: 08/23/18 (son at bedside and does not want patient to go under general anesthesia) Patient seen and examined:: with staff Patient is:: awake, non-interactive Per staff patient has:: tolerating meds Internal Medicine Objective - Results Result Diagrams: 08/23/18 04:50 08/23/18 04:50 Recent Labs: Laboratory Last Values WBC 9.7 Th/cmm (4.8-10.8) 08/23/18 04:50 RBC 3.58 Mil/cmm (3.80-5.20) L 08/23/18 04:50 Hgb 11.2 gm/dL (12-16) L 08/23/18 04:50 Hct 33.6 % (41.0-60) L D 08/23/18 04:50 MCV 93.8 fl (81-100) 08/23/18 04:50 MCH 31.2 pg (27.0-31.0) H 08/23/18 04:50 MCHC Differential 33.3 pg (28.0-36.0) 08/23/18 04:50 RDW 13.4 % (11.5-20.0) 08/23/18 04:50 Plt Count 238 Th/cmm (150-400) 08/23/18 04:50 MPV 8.8 fl 08/23/18 04:50 Neutrophils % 73.9 % (40.0-80.0) 08/23/18 04:50 Lymphocytes % 18.4 % (20.0-50.0) L 08/23/18 04:50 Monocytes % 6.4 % (2.0-10.0) 08/23/18 04:50 Eosinophils % 0.9 % (0.0-5.0) 08/23/18 04:50 Basophils % 0.4 % (0.0-2.0) 08/23/18 04:50 PT 10.3 SECONDS (9.5-11.5) 08/22/18 14:00 INR 0.99 (0.5-1.4) 08/22/18 14:00 PTT (Actin FS) 23.9 SECONDS (26.0-38.0) L 08/22/18 14:00 Sodium 141 mEq/L (136-145) 08/23/18 04:50 Potassium 3.7 mEq/L (3.5-5.1) 08/23/18 04:50 Chloride 104 mEq/L (98-107) 08/23/18 04:50 Carbon Dioxide 29.3 mEq/L (21.0-31.0) 08/23/18 04:50 Anion Gap 11.4 (7.0-16.0) 08/23/18 04:50 BUN 22 mg/dL (7-25) 08/23/18 04:50 Creatinine 0.7 mg/dL (0.6-1.2) 08/23/18 04:50 Est GFR ( Amer) TNP 08/23/18 04:50 Est GFR (Non-Af Amer) TNP 08/23/18 04:50 BUN/Creatinine Ratio 31.4 08/23/18 04:50 Glucose 137 mg/dL (70-105) H 08/23/18 04:50 POC Glucose 89 MG/DL (70 - 105) 08/22/18 22:04 Calcium 9.2 mg/dL (8.6-10.3) 08/23/18 04:50 Total Bilirubin 0.5 mg/dL (0.3-1.0) 08/22/18 14:00 AST 17 U/L (13-39) 08/22/18 14:00 ALT 29 U/L (7-52) 08/22/18 14:00 Alkaline Phosphatase 70 U/L (34-104) 08/22/18 14:00 Total Protein 7.5 gm/dL (6.0-8.3) 08/22/18 14:00 Albumin 4.0 gm/dL (3.7-5.3) 08/22/18 14:00 Globulin 3.5 gm/dL 08/22/18 14:00 Albumin/Globulin Ratio 1.1 (1.0-1.8) 08/22/18 14:00 Triglycerides 157 mg/dL (<150) H 08/23/18 04:50 Cholesterol 125 mg/dL (<200) 08/23/18 04:50 LDL Cholesterol Direct 66 mg/dL (75-193) L 08/23/18 04:50 HDL Cholesterol 34 mg/dL (23-92) 08/23/18 04:50 Urine Source [place] 08/22/18 14:40 Urine Color YELLOW 04/22/19 14:40 Urine Clarity CLOUDY (CLEAR) H 08/22/18 14:40 Urine pH 8.5 (4.6 - 8.0) 08/22/18 14:40 Ur Specific [place] 1.010 (1.005-1.030) 08/22/18 14:40 Urine Protein 100 mg/dL (NEGATIVE) H 08/22/18 14:40 Urine Glucose (UA) NEGATIVE mg/dL (NEGATIVE) 08/22/18 14:40 Urine Ketones TRACE mg/dL (NEGATIVE) 08/22/18 14:40 Urine Blood NEGATIVE (NEGATIVE) 08/22/18 14:40 Urine Nitrate POSITIVE (NEGATIVE) H 08/22/18 14:40 Urine Bilirubin SMALL (NEGATIVE) H 08/22/18 14:40 Urine Urobilinogen 2.0 E.U./dL (0.2 - 1.0) 08/22/18 14:40 Ur Leukocyte Esterase LARGE (NEGATIVE) H 08/22/18 14:40 Urine RBC 0-2 /hpf (0-5) 08/22/18 14:40 Urine WBC 25-50 /hpf (0-5) H 08/22/18 14:40 Ur Epithelial Cells FEW /lpf (FEW) 08/22/18 14:40 Urine Bacteria MANY /hpf (NONE SEEN) H 08/22/18 14:40 Valproic Acid 65.7 ug/mL (50.0-100.0) 08/22/18 14:00 - Physical Exam Vitals and I&O: Vital Signs Temp 97.0 F 08/23/18 11:57 Pulse 61 08/23/18 11:57 Resp 18 08/23/18 11:57 BP 112/39 08/23/18 11:57 Pulse Ox 98 08/23/18 11:57 Intake & Output 08/22/18 08/23/18 08/23/18 18:59 06:59 18:59 Intake Total 500 1460 Output Total 300 Balance 500 1160 Weight (lbs) 100 lb 100 lb Intake: Intake, IV Amount 500 1020 Sodium Chloride 0.9% 500 500 ml @ Wide Open IV .Q0M ONE Rx#:[id number] Oral 440 Output: Urine 300 Stool 0 Other: # Voids 4 Weight Source Bedscale Estimated Active Medications: Current Medications Acetaminophen (Tylenol) 650 mg PO Q4HR PRN PRN Reason: Pain or Fever >101 Stop: 10/22/18 14:11 Acetaminophen (Tylenol Extra Strength) 1,000 mg PO Q4HR PRN PRN Reason: Pain (Moderate) Stop: 10/22/18 14:11 Aspirin (Aspirin Chewable) 81 mg PO DAILY LITA Stop: 10/23/18 08:59 Bisacodyl (Dulcolax 10 Mg Supp) 10 mg RC DAILY PRN PRN Reason: Constipation Stop: 10/22/18 14:11 Clopidogrel Bisulfate (Plavix) 75 mg PO DAILY [facility] Stop: 10/23/18 08:59 Docusate Sodium (Colace) 100 mg PO DAILY [facility]ITA Stop: 10/23/18 08:59 Donepezil HCl (Aricept) 10 mg PO HS [facility] Stop: 10/22/18 20:59 Hydrochlorothiazide (Hctz) 25 mg PO DAILY [facility] Stop: 10/23/18 08:59 Dextrose/Sodium Chloride (D5-0.45ns) 1,000 mls @ 100 mls/hr IV .Q10H [facility] Stop: 10/21/18 19:59 Last Admin: 08/23/18 02:00 Dose: 100 mls/hr Levofloxacin (Levaquin Pb) 250 mg in 50 mls @ 50 mls/hr IV Q24HR [facility]; Protocol Stop: 10/22/18 15:59 Insulin Human Lispro (Humalog Insulin Sliding Scale) 0 units SUBQ BIDAC [facility]; Protocol Stop: 10/22/18 16:29 Lactobacillus Rhamnosus (Culturelle 15b) 1 each PO DAILY [facility] Stop: 10/23/18 08:59 Lisinopril (Zestril) 10 mg PO DAILY [facility] Stop: 10/23/18 08:59 Magnesium Hydroxide (Milk Of Magnesia) 30 ml PO HS PRN PRN Reason: Constipation Stop: 10/22/18 14:11 Memantine (Namenda) 5 mg PO BID [facility] Stop: 10/22/18 16:59 Metformin HCl (Glucophage) 500 mg PO BID [facility] Stop: 10/22/18 16:59 Mirtazapine (Remeron) 15 mg PO HS [facility]; Protocol Stop: 10/22/18 20:59 Miscellaneous (Cranberry Fruit Extract [Cranberry]) 425 mg PO DAILY [facility] Stop: 10/23/18 08:59 Miscellaneous (Megace Oral Susp) 10 ml PO DAILY [facility] Stop: 10/23/18 08:59 Pneumococcal Polyvalent Vaccine (Pneumovax) 0.5 ml IM .ONCE ONE Stop: 08/24/18 09:01 Quetiapine Fumarate (Seroquel) 25 mg PO BID [facility]; Protocol Stop: 10/22/18 16:59 Simvastatin (Zocor) 20 mg PO QPM [facility]; Protocol Stop: 10/22/18 16:59 Sodium Phosphate (Fleet Enema) 135 ml RC Q48H PRN PRN Reason: Constipation Stop: 10/22/18 14:11 Trazodone HCl (Desyrel) 25 mg PO HS [facility]; Protocol Stop: 10/22/18 20:59 Valproate Sodium (Depakene) 250 mg PO BID [facility]; Protocol Stop: 10/22/18 16:59 General: weak, demented HEENT: NC/AT, PERRLA Neck: Supple Lungs: CTAB Cardiovascular: RRR, Normal S1, Normal S2 Abdomen: soft, non-tender, non-distended Neurological: alert Internal Medicine Assmt/Plan - Assessment Assessment: for gt placement ivabx for uti am labs continue current plan of care
--- NOTE | 2018-08-23 16:20 | Consultation ---
DATE OF CONSULTATION: 08/23/2018 REQUESTING PHYSICIAN: Dawn Decker M.D. REASON FOR CONSULTATION: Dysphagia and poor p.o. intake. HISTORY OF PRESENT ILLNESS: Thank you for asking me to see this patient in consultation. This is a 78-year-old female who was admitted to [facility] due to poor oral intake. She has a history of dementia, schizophrenia, diabetes, coronary artery disease. The patient has been having relative failure to thrive and has not been eating well and has lost significant amount of weight per family. Family as well as primary requesting a G-tube placement given her lack of oral intake and not meeting her metabolic demands. PAST MEDICAL HISTORY: As above. MEDICATIONS: Have been reviewed. FAMILY HISTORY: Noncontributory for GI disease. SOCIAL HISTORY: No tobacco, alcohol or drugs. She has a supportive family. MEDICATIONS: Plavix and aspirin as well as donepezil. REVIEW OF SYSTEMS: Unable to obtain given the patient's current state. PHYSICAL EXAMINATION: VITAL SIGNS: Temperature 98.5, pulse of 63, blood pressure is 120/46, respiratory rate of 18. GENERAL: She is in no acute distress. HEENT: Normocephalic, atraumatic. PERRL positive. LUNGS: Clear bilaterally. No wheezes, rales or rhonchi. HEART: Regular rate and rhythm, normal S1, S2. ABDOMEN: Soft, nontender. Bowel sounds are positive. EXTREMITIES: Show no lower extremity edema. NEUROLOGIC: Grossly intact. LABORATORY DATA: White count of 9.7, hemoglobin 11.2, platelet count of 238. INR of 0.99. ASSESSMENT AND PLAN: This is a 78-year-old female with history of dementia, coronary artery disease, schizophrenia who presents with failure to thrive and poor p.o. intake. 1. Dysphagia. 2. Poor p.o. intake. 3. Protein calorie malnutrition. 4. History of dementia. Discussed risks, benefits and alternatives to the procedure with the patient's son who would like to proceed with G-tube placement and discussed risks including possible aspiration, bleeding, infection and even . The patient would like to proceed with G-tube placement just without general anesthesia, which I explained will be using moderate sedation for that procedure and will be performed by an anesthesiologist. 1. Consent for EGD, PEG. 2. Hold any Plavix medications been about 24-48 hours now will be over 48 hours by tomorrow, so safe to proceed. We discussed with nursing staff to hold these medications. 3. N.p.o. after midnight. Thank you for allowing us to participate in this patient's care. JOB# [id number]
[2018-08-23] MEDS: Levofloxacin 250mg/50mL 250 MG/50 ML BAG IV SCH (18:52)
[2018-08-23] MEDS: INSULIN LISPRO SLIDING SCALE 100 UNITS/ML UNIT SUBQ SCH (18:57)
[2018-08-24] MEDS: D5-0.45NS 1,000 ML IV SCH ×2 (01:06→11:59)
[2018-08-24 05:36] LABS: % BASOPHILS 0.6 % (0.0-2.0); % EOSINOPHILS 1.2 % (0.0-5.0); % LYMPHOCYTES 21.3 % (20.0-50.0); % MONOCYTES 9.5 % (2.0-10.0); % NEUTROPHILS 67.4 % (40.0-80.0); BASOPHILE ABSOLUTE 0.1 Th/cumm (0-0.2); EOSINOPHILE ABSOLUTE 0.1 Th/cmm (0.1-0.4); HEMATOCRIT 32.8 % (41.0-60); HEMOGLOBIN 11.1 gm/dL (12-16); LYMPHOCYTE ABSOLUTE 1.8 Th/cmm (1.5-3.0); MEAN CELL VOLUME 94.4 fl (81-100); MEAN CORPUSCULAR HEMOGLOBIN 31.8 pg (27.0-31.0); MEAN CORPUSCULAR HGB CONC 33.7 pg (28.0-36.0); MEAN PLATELET VOLUME 9.2 fl; MONOCYTE ABSOLUTE 0.8 Th/cmm (0.3-1.0); NEUTROPHILE ABSOLUTE 5.6 Th/cmm (1.8-8.0); PLATELET COUNT 247 Th/cmm (150-400); RED BLOOD COUNT 3.48 Mil/cmm (3.80-5.20); RED CELL DISTRIBUTION WIDTH 13.4 % (11.5-20.0); WHITE BLOOD COUNT 8.4 Th/cmm (4.8-10.8)
[2018-08-24 05:41] LABS: ANION GAP 10.5 (7.0-16.0); BUN - UREA NITROGEN 9 mg/dL (7-25); CARBON DIOXIDE 28.3 mEq/L (21.0-31.0); CHLORIDE 104 mEq/L (98-107); CREATININE - SERUM 0.6 mg/dL (0.6-1.2); GLUCOSE 145 mg/dL (70-105); POTASSIUM SERUM 3.8 mEq/L (3.5-5.1); SODIUM SERUM 139 mEq/L (136-145)
[2018-08-24 05:55] LABS: PROTHROMBIN TIME (TEST) 10.4 SECONDS (9.5-11.5)
[2018-08-24] MEDS: INSULIN LISPRO SLIDING SCALE 100 UNITS/ML UNIT SUBQ SCH ×2 (06:39→17:05)
[2018-08-24] MEDS ORDERED: Non-Formulary Item 1 EA (Cranberry Fruit Extract [Cranberry] 425 MG) PO SCH (09:00)
[2018-08-24] MEDS ORDERED: Aspirin 81mg Chewable Tab PO SCH (09:00)
[2018-08-24] MEDS ORDERED: Pneumococcal Vaccine 0.5 mL Vial IM ONE (09:00)
--- NOTE | 2018-08-24 09:19 | Diagnostic Imaging Report ---
CHEST X-RAY: AP view INDICATION: Cough, preop COMPARISON: 06/17/2018 FINDINGS: There is elevation of the right hemidiaphragm. Chronic lung changes are noted. There is no focal consolidation or pleural effusions The heart is normal in size. Gas-filled loops of bowel the upper abdomen are noted. Degenerative changes of the spine are noted. IMPRESSION: Chronic lung changes with no focal consolidation identified.
[2018-08-24] MEDS: Lactobacillus Rhamnosus GG 15 Billion CFU CAP.SPRINK PO SCH (09:35)
[2018-08-24] MEDS ORDERED: Lidocaine 2% Gel 5 mL TP ONE (14:00)
[2018-08-24] MEDS ORDERED: Propofol 10 mg/mL 20mL Vial **SURGERY USE ONLY IV ONE (14:00)
[2018-08-24] MEDS ORDERED: Sodium Chloride 0.9% 1,000 ML IV ONE (14:00)
--- NOTE | 2018-08-24 14:55 | Operative Report ---
DATE OF SURGERY: 08/24/2018 PROCEDURE PERFORMED: EGD with PEG tube placement. PREOPERATIVE DIAGNOSES: 1. Oropharyngeal dysphagia. 2. Poor p.o. intake. 3. Protein-calorie malnutrition. 4. History of dementia. POSTOPERATIVE DIAGNOSIS: Successful 20-Malay G-tube placement. INDICATION: This is a 78-year-old female with history of dementia, coronary artery disease, schizophrenia who presented with failure to thrive and poor p.o. intake and protein calorie malnutrition. After discussing the risks, benefits and alternatives of the procedure with the patient's family, we decided to proceed with EGD with PEG tube placement. SEDATION: Per anesthesia. CONSENT: Informed consent was obtained from the patient's family after explaining the risks, benefits and alternatives to the procedure, which were understood and so stated. DESCRIPTION OF PROCEDURE: EGD with PEG: While the patient was in a supine position, a GIF-H180 scope was introduced through the patient's mouth and advanced under direct visualization into the esophagus into the stomach and up to the second portion of the duodenum. Here, the scope was withdrawn carefully examining the color, texture, anatomy of the mucosa. The D1 and D2 portions appeared normal. The scope was then brought back to the gastric body where retroflexion was performed, which was normal. Scope was then straightened forward. Further attention was paid to transillumination. We identified an appropriate spot in good anatomical landmark and position on the outside. This area was appropriately anesthetized as well as sterilely draped and using a lidocaine injection needle, we injected 10 mL of local lidocaine into our tract. We made a very small 5 mm incision with a scalpel and then used a trocar alongside with a guidewire which was then snared by the endoscope and then brought out the mouth. A 20-Malay G-tube was then attached to the end of the guidewire and pulled out of the stomach and secured appropriately at the 3.5 cm position. The endoscope was then reintroduced back into the stomach to confirm positioning. The stomach was decompressed. Further attention was paid to the esophagus, which appeared normal. The scope was withdrawn. The patient tolerated this procedure well. RECOMMENDATIONS: 1. Okay to use G-tube in 4 hours for meds and diet, recommend using G-tube per dietary recommendations. 2. Free water flushes with 50 mL of sterile water every 6 hours. 3. Check gastric residuals every 6 hours and hold if greater than 100 mL an hour. 4. Abdominal binder. Thank you for allowing us to participate in this patient's care. JOB# [id number]
--- NOTE | 2018-08-24 16:43 | Internal Medicine Prog Note ---
Internal Medicine Subjective - Subjective Patient seen and examined:: chart reviewed (pt. s/p egd with peg tube placement ) Patient is:: awake, non-interactive Per staff patient has:: tolerating meds Internal Medicine Objective - Results Result Diagrams: 08/24/18 05:00 08/24/18 05:00 Recent Labs: Laboratory Last Values WBC 8.4 Th/cmm (4.8-10.8) 08/24/18 05:00 RBC 3.48 Mil/cmm (3.80-5.20) L 08/24/18 05:00 Hgb 11.1 gm/dL (12-16) L 08/24/18 05:00 Hct 32.8 % (41.0-60) L 08/24/18 05:00 MCV 94.4 fl (81-100) 08/24/18 05:00 MCH 31.8 pg (27.0-31.0) H 08/24/18 05:00 MCHC Differential 33.7 pg (28.0-36.0) 08/24/18 05:00 RDW 13.4 % (11.5-20.0) 08/24/18 05:00 Plt Count 247 Th/cmm (150-400) 08/24/18 05:00 MPV 9.2 fl 08/24/18 05:00 Neutrophils % 67.4 % (40.0-80.0) 08/24/18 05:00 Lymphocytes % 21.3 % (20.0-50.0) 08/24/18 05:00 Monocytes % 9.5 % (2.0-10.0) 08/24/18 05:00 Eosinophils % 1.2 % (0.0-5.0) 08/24/18 05:00 Basophils % 0.6 % (0.0-2.0) 08/24/18 05:00 PT 10.4 SECONDS (9.5-11.5) 08/24/18 05:00 INR 1.00 (0.5-1.4) 08/24/18 05:00 PTT (Actin FS) 23.9 SECONDS (26.0-38.0) L 08/22/18 14:00 Sodium 139 mEq/L (136-145) 08/24/18 05:00 Potassium 3.8 mEq/L (3.5-5.1) 08/24/18 05:00 Chloride 104 mEq/L (98-107) 08/24/18 05:00 Carbon Dioxide 28.3 mEq/L (21.0-31.0) 08/24/18 05:00 Anion Gap 10.5 (7.0-16.0) 08/24/18 05:00 BUN 9 mg/dL (7-25) 08/24/18 05:00 Creatinine 0.6 mg/dL (0.6-1.2) 08/24/18 05:00 Est GFR ( Amer) TNP 08/24/18 05:00 Est GFR (Non-Af Amer) TNP 08/24/18 05:00 BUN/Creatinine Ratio 15.0 08/24/18 05:00 Glucose 145 mg/dL (70-105) H 08/24/18 05:00 POC Glucose 94 MG/DL (70 - 105) 08/24/18 13:24 Calcium 9.0 mg/dL (8.6-10.3) 08/24/18 05:00 Total Bilirubin 0.5 mg/dL (0.3-1.0) 08/22/18 14:00 AST 17 U/L (13-39) 08/22/18 14:00 ALT 29 U/L (7-52) 08/22/18 14:00 Alkaline Phosphatase 70 U/L (34-104) 08/22/18 14:00 Total Protein 7.5 gm/dL (6.0-8.3) 08/22/18 14:00 Albumin 4.0 gm/dL (3.7-5.3) 08/22/18 14:00 Globulin 3.5 gm/dL 08/22/18 14:00 Albumin/Globulin Ratio 1.1 (1.0-1.8) 08/22/18 14:00 Triglycerides 157 mg/dL (<150) H 08/23/18 04:50 Cholesterol 125 mg/dL (<200) 08/23/18 04:50 LDL Cholesterol Direct 66 mg/dL (75-193) L 08/23/18 04:50 HDL Cholesterol 34 mg/dL (23-92) 08/23/18 04:50 Urine Source [place] 08/22/18 14:40 Urine Color YELLOW 08/22/18 14:40 Urine Clarity CLOUDY (CLEAR) H 08/22/18 14:40 Urine pH 8.5 (4.6 - 8.0) 08/22/18 14:40 Ur Specific [place] 1.010 (1.005-1.030) 08/22/18 14:40 Urine Protein 100 mg/dL (NEGATIVE) H 08/22/18 14:40 Urine Glucose (UA) NEGATIVE mg/dL (NEGATIVE) 08/22/18 14:40 Urine Ketones TRACE mg/dL (NEGATIVE) 08/22/18 14:40 Urine Blood NEGATIVE (NEGATIVE) 08/22/18 14:40 Urine Nitrate POSITIVE (NEGATIVE) H 08/22/18 14:40 Urine Bilirubin SMALL (NEGATIVE) H 08/22/18 14:40 Urine Urobilinogen 2.0 E.U./dL (0.2 - 1.0) 08/22/18 14:40 Ur Leukocyte Esterase LARGE (NEGATIVE) H 08/22/18 14:40 Urine RBC 0-2 /hpf (0-5) 08/22/18 14:40 Urine WBC 25-50 /hpf (0-5) H 08/22/18 14:40 Ur Epithelial Cells FEW /lpf (FEW) 08/22/18 14:40 Urine Bacteria MANY /hpf (NONE SEEN) H 08/22/18 14:40 Valproic Acid 65.7 ug/mL (50.0-100.0) 08/22/18 14:00 - Physical Exam Vitals and I&O: Vital Signs Temp 99.2 F 08/24/18 16:19 Pulse 71 08/24/18 16:19 Resp 18 08/24/18 16:19 BP 119/69 08/24/18 16:19 Pulse Ox 96 08/24/18 16:19 Intake & Output 08/23/18 08/24/18 08/24/18 18:59 06:59 18:59 Intake Total 1240 1000 Output Total 350 1000 Balance 890 -1000 1000 Weight (lbs) 45.359 kg 45.359 kg Intake: Intake, IV Amount 1000 1000 D5-0.45NS 1,000 ml @ 100 1000 1000 mls/hr IV .Q10H [facility] Rx#: [id number] Oral 240 Output: Urine 350 1000 Other: Weight Source Bedscale Bedscale Active Medications: Current Medications Acetaminophen (Tylenol) 650 mg PO Q4HR PRN PRN Reason: Pain or Fever >101 Stop: 10/22/18 14:11 Acetaminophen (Tylenol Extra Strength) 1,000 mg PO Q4HR PRN PRN Reason: Pain (Moderate) Stop: 10/22/18 14:11 Bisacodyl (Dulcolax 10 Mg Supp) 10 mg RC DAILY PRN PRN Reason: Constipation Stop: 10/22/18 14:11 Docusate Sodium (Colace) 100 mg PO DAILY [facility] Stop: 10/23/18 08:59 Last Admin: 08/24/18 09:32 Dose: Not Given Donepezil HCl (Aricept) 10 mg PO HS [facility] Stop: 10/22/18 20:59 Last Admin: 08/23/18 20:52 Dose: 10 mg Hydrochlorothiazide (Hctz) 25 mg PO DAILY [facility] Stop: 10/23/18 08:59 Last Admin: 08/24/18 09:33 Dose: Not Given Dextrose/Sodium Chloride (D5-0.45ns) 1,000 mls @ 100 mls/hr IV .Q10H [facility] Stop: 10/21/18 19:59 Last Admin: 08/24/18 11:59 Dose: 100 mls/hr Levofloxacin (Levaquin Pb) 250 mg in 50 mls @ 50 mls/hr IV Q24HR [facility]; Protocol Stop: 10/22/18 15:59 Last Admin: 08/23/18 18:52 Dose: 50 mls/hr Insulin Human Lispro (Humalog Insulin Sliding Scale) 0 units SUBQ BIDAC [facility]; Protocol Stop: 10/22/18 16:29 Last Admin: 08/24/18 06:39 Dose: Not Given Lactobacillus Rhamnosus (Culturelle 15b) 1 each PO DAILY [facility] Stop: 10/23/18 08:59 Last Admin: 08/24/18 09:35 Dose: Not Given Lisinopril (Zestril) 10 mg PO DAILY [facility] Stop: 10/23/18 08:59 Last Admin: 08/24/18 09:36 Dose: Not Given Magnesium Hydroxide (Milk Of Magnesia) 30 ml PO HS PRN PRN Reason: Constipation Stop: 10/22/18 14:11 Megestrol Acetate (Megace) 400 mg PO DAILY [facility] Stop: 10/23/18 08:59 Last Admin: 08/24/18 09:36 Dose: Not Given Memantine (Namenda) 5 mg PO BID [facility] Stop: 10/22/18 16:59 Last Admin: 08/24/18 09:36 Dose: Not Given Metformin HCl (Glucophage) 500 mg PO BID [facility] Stop: 10/22/18 16:59 Last Admin: 08/24/18 09:36 Dose: Not Given Mirtazapine (Remeron) 15 mg PO HS [facility]; Protocol Stop: 10/22/18 20:59 Last Admin: 08/23/18 20:52 Dose: 15 mg Pneumococcal Polyvalent Vaccine (Pneumovax) 0.5 ml IM .ONCE ONE Stop: 08/26/18 09:01 Quetiapine Fumarate (Seroquel) 25 mg PO BID [facility]; Protocol Stop: 10/22/18 16:59 Simvastatin (Zocor) 20 mg PO QPM [facility]; Protocol Stop: 10/22/18 16:59 Last Admin: 08/23/18 18:59 Dose: Not Given Sodium Phosphate (Fleet Enema) 135 ml RC Q48H PRN PRN Reason: Constipation Stop: 10/22/18 14:11 Trazodone HCl (Desyrel) 25 mg PO HS [facility]; Protocol Stop: 10/22/18 20:59 Valproate Sodium (Depakene) 250 mg PO BID [facility]; Protocol Stop: 10/22/18 16:59 Last Admin: 08/24/18 09:36 Dose: Not Given General: weak, demented HEENT: NC/AT, PERRLA Neck: Supple Lungs: CTAB Cardiovascular: RRR, Normal S1, Normal S2 Abdomen: soft, non-tender, non-distended Neurological: alert Internal Medicine Assmt/Plan - Assessment Assessment: Htn Diabetes mellitus CAD Arthritis Dementia Chronic anemia Schizophrenia UTI Current Active Problems Problem Status Onset WEAKNESS, FAILURE TO THRIVE Acute s/p peg tube placement - Plan Plan: As per GI g-tube care Continuation of care Monitor vitals, labs, diet Continue present meds as directed Fall precaution Continue current treatment plan as ordered. Nutritional Asmnt/Malnutr-PDOC - Dietary Evaluation Malnutrition Findings (Please click <Entered> for more info): Nutritional Asmnt/Malnutrition Start: 08/23/18 17: 34 Text: Status: Complete Freq: Protocol: Document 08/23/18 17:46 [facility] (Rec: 08/23/18 17:55 [email or web address] Nutritional Asmnt/Malnutrition Patient General Information Nutritional Screening High Risk Diagnosis FTT, UTI Pertinent Medical Hx/Surgical Hx HTN, DM, CAD, arthiris, demneita, anemia Subjective Information Pt seen sitting up in bed at time of visit, confused. Family at bedside was trying to feed pt with pureed food but pt spit out all the bites. Family stated pt only drink one bottle of Ensure and juice today possible d/t pt very thristy. Family considers possible Gtube. Current Diet Order/ Nutrition Support pureed, low carb 45gm Pertinent Medications D5-0.45ns, colace, humalog, culturelle, levaquin, megace, glucophage, remeron, seroquel, vancomycin Pertinent Labs 08/23 Glucose 137 08/22 glucose 184 Nutritional Hx/Data Height 1.63 m Height (Calculated Centimeters) 162.6 Current Weight (lbs) 45.359 kg Weight (Calculated Kilograms) 45.4 Weight (Calculated Grams) 86289.2 [place] Body Weight 120 Body Mass Index (BMI) 17.2 GI Symptoms GI Symptoms None Last BM not indicated Difficult in: None Skin Integrity/Comment: intact Current %PO Negligible < 25% Estimated Nutritional Goals BEE in Kcals: Using Current wt Calories/Kcals/Kg 27-30 Kcals Calculated 0598-9988 Protein: Using Current wt Protein g/k.2 Protein Calculated 54 Fluid: ml 1215-1440ml (1ml/kcal) Nutritional Problem 1. Problem Problem inadequate food intake Etiology confusion Signs/Symptoms: PO intake <25%, pt refused to eat Intervention/Recommendation Comments 1. Continue with current diet as ordered. Encourage oral intake. Add Ensure chocolate TID for extra kcal and protein . 2. Consider alternative nutrition route (Gtube) if PO intake continue <25%. 2. Monitor PO intake, wt, labs and skin integrity 3. F/U as high risk in 2-3 days Expected Outcomes/Goals Expected Outcomes/Goals 1. Pt to meet at least 75% of nutritional needs. 2. Wt stability, skin to remain intact, labs to approach WNL.
[2018-08-24] MEDS: Levofloxacin 250mg/50mL 250 MG/50 ML BAG IV SCH (17:00)
--- NOTE | 2018-08-25 01:25 | Infectious Disease Prog Note ---
Infectious Disease Subjective - Review of Systems Service Date: 08/24/18 Events since last encounter: G tube was placed. Subjective: There is no new change, no fever. Infectious Disease Objective - Results Result Diagrams: 08/24/18 05:00 08/24/18 05:00 Recent Labs: Laboratory Last Values WBC 8.4 Th/cmm (4.8-10.8) 08/24/18 05:00 RBC 3.48 Mil/cmm (3.80-5.20) L 08/24/18 05:00 Hgb 11.1 gm/dL (12-16) L 08/24/18 05:00 Hct 32.8 % (41.0-60) L 08/24/18 05:00 MCV 94.4 fl (81-100) 08/24/18 05:00 MCH 31.8 pg (27.0-31.0) H 08/24/18 05:00 MCHC Differential 33.7 pg (28.0-36.0) 08/24/18 05:00 RDW 13.4 % (11.5-20.0) 08/24/18 05:00 Plt Count 247 Th/cmm (150-400) 08/24/18 05:00 MPV 9.2 fl 08/24/18 05:00 Neutrophils % 67.4 % (40.0-80.0) 08/24/18 05:00 Lymphocytes % 21.3 % (20.0-50.0) 08/24/18 05:00 Monocytes % 9.5 % (2.0-10.0) 08/24/18 05:00 Eosinophils % 1.2 % (0.0-5.0) 08/24/18 05:00 Basophils % 0.6 % (0.0-2.0) 08/24/18 05:00 PT 10.4 SECONDS (9.5-11.5) 08/24/18 05:00 INR 1.00 (0.5-1.4) 08/24/18 05:00 PTT (Actin FS) 23.9 SECONDS (26.0-38.0) L 08/22/18 14:00 Sodium 139 mEq/L (136-145) 08/24/18 05:00 Potassium 3.8 mEq/L (3.5-5.1) 08/24/18 05:00 Chloride 104 mEq/L (98-107) 08/24/18 05:00 Carbon Dioxide 28.3 mEq/L (21.0-31.0) 08/24/18 05:00 Anion Gap 10.5 (7.0-16.0) 08/24/18 05:00 BUN 9 mg/dL (7-25) 08/24/18 05:00 Creatinine 0.6 mg/dL (0.6-1.2) 08/24/18 05:00 Est GFR ( Amer) TNP 08/24/18 05:00 Est GFR (Non-Af Amer) TNP 08/24/18 05:00 BUN/Creatinine Ratio 15.0 08/24/18 05:00 Glucose 145 mg/dL (70-105) H 08/24/18 05:00 POC Glucose 83 MG/DL (70 - 105) 08/24/18 17:04 Calcium 9.0 mg/dL (8.6-10.3) 08/24/18 05:00 Total Bilirubin 0.5 mg/dL (0.3-1.0) 08/22/18 14:00 AST 17 U/L (13-39) 08/22/18 14:00 ALT 29 U/L (7-52) 08/22/18 14:00 Alkaline Phosphatase 70 U/L (34-104) 08/22/18 14:00 Total Protein 7.5 gm/dL (6.0-8.3) 08/22/18 14:00 Albumin 4.0 gm/dL (3.7-5.3) 08/22/18 14:00 Globulin 3.5 gm/dL 08/22/18 14:00 Albumin/Globulin Ratio 1.1 (1.0-1.8) 08/22/18 14:00 Triglycerides 157 mg/dL (<150) H 08/23/18 04:50 Cholesterol 125 mg/dL (<200) 08/23/18 04:50 LDL Cholesterol Direct 66 mg/dL (75-193) L 08/23/18 04:50 HDL Cholesterol 34 mg/dL (23-92) 08/23/18 04:50 Urine Source [place] 08/22/18 14:40 Urine Color YELLOW 08/22/18 14:40 Urine Clarity CLOUDY (CLEAR) H 08/22/18 14:40 Urine pH 8.5 (4.6 - 8.0) 08/22/18 14:40 Ur Specific [place] 1.010 (1.005-1.030) 08/22/18 14:40 Urine Protein 100 mg/dL (NEGATIVE) H 08/22/18 14:40 Urine Glucose (UA) NEGATIVE mg/dL (NEGATIVE) 08/22/18 14:40 Urine Ketones TRACE mg/dL (NEGATIVE) 08/22/18 14:40 Urine Blood NEGATIVE (NEGATIVE) 08/22/18 14:40 Urine Nitrate POSITIVE (NEGATIVE) H 08/22/18 14:40 Urine Bilirubin SMALL (NEGATIVE) H 08/22/18 14:40 Urine Urobilinogen 2.0 E.U./dL (0.2 - 1.0) 08/22/18 14:40 Ur Leukocyte Esterase LARGE (NEGATIVE) H 08/22/18 14:40 Urine RBC 0-2 /hpf (0-5) 08/22/18 14:40 Urine WBC 25-50 /hpf (0-5) H 08/22/18 14:40 Ur Epithelial Cells FEW /lpf (FEW) 08/22/18 14:40 Urine Bacteria MANY /hpf (NONE SEEN) H 08/22/18 14:40 Valproic Acid 65.7 ug/mL (50.0-100.0) 08/22/18 14:00 - Physical Exam Vitals and I&O: Vital Signs Temp 98.8 F 08/25/18 00:00 Pulse 89 08/25/18 00:00 Resp 18 08/25/18 00:00 BP 125/59 08/25/18 00:00 Pulse Ox 96 08/25/18 00:00 Intake & Output 08/24/18 08/24/18 08/25/18 06:59 18:59 06:59 Intake Total 50 1000 Output Total 1000 Balance -950 1000 Weight (lbs) 45.359 kg Intake: Intake, IV Amount 50 1000 D5-0.45NS 1,000 ml @ 100 1000 mls/hr IV .Q10H [facility] Rx#: [id number] Levofloxacin 250mg/50mL 50 250 mg In 50 ml @ 50 mls/ hr IV Q24HR [facility] Rx#: [id number] Output: Urine 1000 Other: Weight Source Bedscale Active Medications: Current Medications Acetaminophen (Tylenol) 650 mg PO Q4HR PRN PRN Reason: Pain or Fever >101 Stop: 10/22/18 14:11 Last Admin: 08/24/18 20:21 Dose: 650 mg Acetaminophen (Tylenol Extra Strength) 1,000 mg PO Q4HR PRN PRN Reason: Pain (Moderate) Stop: 10/22/18 14:11 Bisacodyl (Dulcolax 10 Mg Supp) 10 mg RC DAILY PRN PRN Reason: Constipation Stop: 10/22/18 14:11 Docusate Sodium (Colace) 100 mg PO DAILY [facility] Stop: 10/23/18 08:59 Last Admin: 08/24/18 09:32 Dose: Not Given Donepezil HCl (Aricept) 10 mg PO HS [facility] Stop: 10/22/18 20:59 Last Admin: 08/24/18 20:22 Dose: 10 mg Hydrochlorothiazide (Hctz) 25 mg PO DAILY [facility] Stop: 10/23/18 08:59 Last Admin: 08/24/18 09:33 Dose: Not Given Dextrose/Sodium Chloride (D5-0.45ns) 1,000 mls @ 100 mls/hr IV .Q10H [facility] Stop: 10/21/18 19:59 Last Admin: 08/24/18 11:59 Dose: 100 mls/hr Levofloxacin (Levaquin Pb) 250 mg in 50 mls @ 50 mls/hr IV Q24HR [facility]; Protocol Stop: 10/22/18 15:59 Last Admin: 08/24/18 17:00 Dose: 50 mls/hr Insulin Human Lispro (Humalog Insulin Sliding Scale) 0 units SUBQ BIDAC [facility]; Protocol Stop: 10/22/18 16:29 Last Admin: 08/24/18 17:05 Dose: Not Given Lactobacillus Rhamnosus (Culturelle 15b) 1 each PO DAILY [facility] Stop: 10/23/18 08:59 Last Admin: 08/24/18 09:35 Dose: Not Given Lisinopril (Zestril) 10 mg PO DAILY [facility] Stop: 10/23/18 08:59 Last Admin: 08/24/18 09:36 Dose: Not Given Magnesium Hydroxide (Milk Of Magnesia) 30 ml PO HS PRN PRN Reason: Constipation Stop: 10/22/18 14:11 Megestrol Acetate (Megace) 400 mg PO DAILY [facility] Stop: 10/23/18 08:59 Last Admin: 08/24/18 09:36 Dose: Not Given Memantine (Namenda) 5 mg PO BID [facility] Stop: 10/22/18 16:59 Last Admin: 08/24/18 17:06 Dose: Not Given Metformin HCl (Glucophage) 500 mg PO BID [facility] Stop: 10/22/18 16:59 Last Admin: 08/24/18 17:06 Dose: Not Given Mirtazapine (Remeron) 15 mg PO [facility]; Protocol Stop: 10/22/18 20:59 Last Admin: 08/24/18 20:21 Dose: 15 mg Pneumococcal Polyvalent Vaccine (Pneumovax) 0.5 ml IM .ONCE ONE Stop: 08/26/18 09:01 Quetiapine Fumarate (Seroquel) 25 mg PO BID [facility]; Protocol Stop: 10/22/18 16:59 Simvastatin (Zocor) 20 mg PO QPM [facility]; Protocol Stop: 10/22/18 16:59 Last Admin: 08/24/18 17:06 Dose: Not Given Sodium Phosphate (Fleet Enema) 135 ml RC Q48H PRN PRN Reason: Constipation Stop: 10/22/18 14:11 Trazodone HCl (Desyrel) 25 mg PO HS [facility]; Protocol Stop: 10/22/18 20:59 Valproate Sodium (Depakene) 250 mg PO BID [facility]; Protocol Stop: 10/22/18 16:59 Last Admin: 08/24/18 17:07 Dose: Not Given General: no acute distress, cachectic HEENT: atraumatic, normocephalic, PERRLA, EOMI Neck: supple, no thyromegaly, no lymphadenopathy Cardiovascular: S1S2, regular Lungs: clear to auscultation bilaterally, clear to percussion Abdomen: soft, other ( G tube.), no tender, no distended Extremities: no cyanosis, no clubbing, no edema Neurological: awake, alert Skin: intact Infectious Disease Assmt/Plan - Problem List Patient Problems: All Active Problems WEAKNESS, FAILURE TO THRIVE (Acute) - Assessment Assessment: 1. UTI. 2. Protein calorie malnutrition. 3. HTN. 4. CAD. 5. Anemia. 6. Diabetes mellitus type 2. 7. Dementia 8. Schizophrenia. 9. Hypertension. 10. Osteoarthritis. 11. failure to thrive. 12. G tube placement. - Plan Plan: dc on bactrim ds 1 tab po bid for 7 more days (end date 08/31/2018). OK to Dc from ID point of view. Nutritional Asmnt/Malnutr-PDOC - Dietary Evaluation Malnutrition Findings (Please click <Entered> for more info): Nutritional Asmnt/Malnutrition Start: 08/23/18 17: 34 Text: Status: Complete Freq: Protocol: Document 08/23/18 17:46 LCHENG (Rec: 08/23/18 17:55 [email or web address]) Nutritional Asmnt/Malnutrition Patient General Information Nutritional Screening High Risk Diagnosis FTT, UTI Pertinent Medical Hx/Surgical Hx HTN, DM, CAD, arthiris, demneita, anemia Subjective Information Pt seen sitting up in bed at time of visit, confused. Family at bedside was trying to feed pt with pureed food but pt spit out all the bites. Family stated pt only drink one bottle of Ensure and juice today possible d/t pt very thristy. Family considers possible Gtube. Current Diet Order/ Nutrition Support pureed, low carb 45gm Pertinent Medications D5-0.45ns, colace, humalog, culturelle, levaquin, megace, glucophage, remeron, seroquel, vancomycin Pertinent Labs 08/23 Glucose 137 08/22 glucose 184 Nutritional Hx/Data Height 1.63 m Height (Calculated Centimeters) 162.6 Current Weight (lbs) 45.359 kg Weight (Calculated Kilograms) 45.4 Weight (Calculated Grams) 74446.2 [place] Body Weight 120 Body Mass Index (BMI) 17.2 GI Symptoms GI Symptoms None Last BM not indicated Difficult in: None Skin Integrity/Comment: intact Current %PO Negligible < 25% Estimated Nutritional Goals BEE in Kcals: Using Current wt Calories/Kcals/Kg 27-30 Kcals Calculated 3496-1271 Protein: Using Current wt Protein g/k.2 Protein Calculated 54 Fluid: ml 1215-1440ml (1ml/kcal) Nutritional Problem 1. Problem Problem inadequate food intake Etiology confusion Signs/Symptoms: PO intake <25%, pt refused to eat Intervention/Recommendation Comments 1. Continue with current diet as ordered. Encourage oral intake. Add Ensure chocolate TID for extra kcal and protein . 2. Consider alternative nutrition route (Gtube) if PO intake continue <25%. 2. Monitor PO intake, wt, labs and skin integrity 3. F/U as high risk in 2-3 days Expected Outcomes/Goals Expected Outcomes/Goals 1. Pt to meet at least 75% of nutritional needs. 2. Wt stability, skin to remain intact, labs to approach WNL.
[2018-08-25] MEDS: INSULIN LISPRO SLIDING SCALE 100 UNITS/ML UNIT SUBQ SCH ×2 (06:38→17:06)
[2018-08-25] MEDS: Sulfamethoxazole/TMP 800/160mg Tab PO SCH ×2 (10:00→17:04)
[2018-08-25] MEDS: Lactobacillus Rhamnosus GG 15 Billion CFU CAP.SPRINK PO SCH (11:00)
--- NOTE | 2018-08-25 12:06 | Internal Medicine Prog Note ---
Internal Medicine Subjective - Subjective Service Date: 08/25/18 Patient is:: awake, non-interactive Per staff patient has:: tolerating meds Internal Medicine Objective - Results Result Diagrams: 08/24/18 05:00 08/24/18 05:00 Recent Labs: Laboratory Last Values WBC 8.4 Th/cmm (4.8-10.8) 08/24/18 05:00 RBC 3.48 Mil/cmm (3.80-5.20) L 08/24/18 05:00 Hgb 11.1 gm/dL (12-16) L 08/24/18 05:00 Hct 32.8 % (41.0-60) L 08/24/18 05:00 MCV 94.4 fl (81-100) 08/24/18 05:00 MCH 31.8 pg (27.0-31.0) H 08/24/18 05:00 MCHC Differential 33.7 pg (28.0-36.0) 08/24/18 05:00 RDW 13.4 % (11.5-20.0) 08/24/18 05:00 Plt Count 247 Th/cmm (150-400) 08/24/18 05:00 MPV 9.2 fl 08/24/18 05:00 Neutrophils % 67.4 % (40.0-80.0) 08/24/18 05:00 Lymphocytes % 21.3 % (20.0-50.0) 08/24/18 05:00 Monocytes % 9.5 % (2.0-10.0) 08/24/18 05:00 Eosinophils % 1.2 % (0.0-5.0) 08/24/18 05:00 Basophils % 0.6 % (0.0-2.0) 08/24/18 05:00 PT 10.4 SECONDS (9.5-11.5) 08/24/18 05:00 INR 1.00 (0.5-1.4) 08/24/18 05:00 PTT (Actin FS) 23.9 SECONDS (26.0-38.0) L 08/22/18 14:00 Sodium 139 mEq/L (136-145) 08/24/18 05:00 Potassium 3.8 mEq/L (3.5-5.1) 08/24/18 05:00 Chloride 104 mEq/L (98-107) 08/24/18 05:00 Carbon Dioxide 28.3 mEq/L (21.0-31.0) 08/24/18 05:00 Anion Gap 10.5 (7.0-16.0) 08/24/18 05:00 BUN 9 mg/dL (7-25) 08/24/18 05:00 Creatinine 0.6 mg/dL (0.6-1.2) 08/24/18 05:00 Est GFR ( Amer) TNP 08/24/18 05:00 Est GFR (Non-Af Amer) TNP 08/24/18 05:00 BUN/Creatinine Ratio 15.0 08/24/18 05:00 Glucose 145 mg/dL (70-105) H 08/24/18 05:00 POC Glucose 131 MG/DL (70 - 105) H 08/25/18 11:09 Calcium 9.0 mg/dL (8.6-10.3) 08/24/18 05:00 Total Bilirubin 0.5 mg/dL (0.3-1.0) 08/22/18 14:00 AST 17 U/L (13-39) 08/22/18 14:00 ALT 29 U/L (7-52) 08/22/18 14:00 Alkaline Phosphatase 70 U/L (34-104) 08/22/18 14:00 Total Protein 7.5 gm/dL (6.0-8.3) 08/22/18 14:00 Albumin 4.0 gm/dL (3.7-5.3) 08/22/18 14:00 Globulin 3.5 gm/dL 08/22/18 14:00 Albumin/Globulin Ratio 1.1 (1.0-1.8) 08/22/18 14:00 Triglycerides 157 mg/dL (<150) H 08/23/18 04:50 Cholesterol 125 mg/dL (<200) 08/23/18 04:50 LDL Cholesterol Direct 66 mg/dL (75-193) L 08/23/18 04:50 HDL Cholesterol 34 mg/dL (23-92) 08/23/18 04:50 Urine Source [place] 08/22/18 14:40 Urine Color YELLOW 08/22/18 14:40 Urine Clarity CLOUDY (CLEAR) H 08/22/18 14:40 Urine pH 8.5 (4.6 - 8.0) 08/22/18 14:40 Ur Specific [place] 1.010 (1.005-1.030) 08/22/18 14:40 Urine Protein 100 mg/dL (NEGATIVE) H 08/22/18 14:40 Urine Glucose (UA) NEGATIVE mg/dL (NEGATIVE) 08/22/18 14:40 Urine Ketones TRACE mg/dL (NEGATIVE) 08/22/18 14:40 Urine Blood NEGATIVE (NEGATIVE) 08/22/18 14:40 Urine Nitrate POSITIVE (NEGATIVE) H 08/22/18 14:40 Urine Bilirubin SMALL (NEGATIVE) H 08/22/18 14:40 Urine Urobilinogen 2.0 E.U./dL (0.2 - 1.0) 08/22/18 14:40 Ur Leukocyte Esterase LARGE (NEGATIVE) H 08/22/18 14:40 Urine RBC 0-2 /hpf (0-5) 08/22/18 14:40 Urine WBC 25-50 /hpf (0-5) H 08/22/18 14:40 Ur Epithelial Cells FEW /lpf (FEW) 08/22/18 14:40 Urine Bacteria MANY /hpf (NONE SEEN) H 08/22/18 14:40 Valproic Acid 65.7 ug/mL (50.0-100.0) 08/22/18 14:00 - Physical Exam Vitals and I&O: Vital Signs Temp 97.0 F 08/25/18 10:12 Pulse 88 08/25/18 11:00 Resp 18 08/25/18 10:12 BP 141/74 08/25/18 11:00 Pulse Ox 98 08/25/18 10:12 Intake & Output 08/24/18 08/25/18 08/25/18 18:59 06:59 18:59 Intake Total 1000 Output Total 350 800 Balance 1000 -350 -800 Weight (lbs) 103 lb 14.4 oz 103 lb Intake: Intake, IV Amount 1000 D5-0.45NS 1,000 ml @ 100 1000 mls/hr IV .Q10H [facility] Rx#: [id number] Output: Urine 350 800 Other: # Bowel Movements 0 Weight Source Bedscale Bedscale Active Medications: Current Medications Acetaminophen (Tylenol) 650 mg PO Q4HR PRN PRN Reason: Pain or Fever >101 Stop: 06/22/19 14:11 Last Admin: 08/24/18 20:21 Dose: 650 mg Acetaminophen (Tylenol Extra Strength) 1,000 mg PO Q4HR PRN PRN Reason: Pain (Moderate) Stop: 10/22/18 14:11 Bisacodyl (Dulcolax 10 Mg Supp) 10 mg RC DAILY PRN PRN Reason: Constipation Stop: 10/22/18 14:11 Docusate Sodium (Colace) 100 mg PO DAILY [facility] Stop: 10/23/18 08:59 Last Admin: 08/25/18 10:59 Dose: Not Given Donepezil HCl (Aricept) 10 mg PO HS [facility] Stop: 10/22/18 20:59 Last Admin: 08/24/18 20:22 Dose: 10 mg Hydrochlorothiazide (Hctz) 25 mg PO DAILY [facility] Stop: 10/23/18 08:59 Last Admin: 08/25/18 11:00 Dose: 25 mg Dextrose/Sodium Chloride (D5-0.45ns) 1,000 mls @ 100 mls/hr IV .Q10H [facility] Stop: 10/21/18 19:59 Last Admin: 08/24/18 11:59 Dose: 100 mls/hr Insulin Human Lispro (Humalog Insulin Sliding Scale) 0 units SUBQ BIDAC [facility]; Protocol Stop: 10/22/18 16:29 Last Admin: 08/25/18 06:38 Dose: Not Given Lactobacillus Rhamnosus (Culturelle 15b) 1 each PO DAILY [facility] Stop: 10/23/18 08:59 Last Admin: 08/25/18 11:00 Dose: 1 each Lisinopril (Zestril) 10 mg PO DAILY [facility] Stop: 10/23/18 08:59 Last Admin: 08/25/18 11:00 Dose: 10 mg Magnesium Hydroxide (Milk Of Magnesia) 30 ml PO HS PRN PRN Reason: Constipation Stop: 10/22/18 14:11 Megestrol Acetate (Megace) 400 mg PO DAILY [facility] Stop: 10/23/18 08:59 Last Admin: 08/24/18 09:36 Dose: Not Given Memantine (Namenda) 5 mg PO BID [facility] Stop: 10/22/18 16:59 Last Admin: 08/24/18 17:06 Dose: Not Given Metformin HCl (Glucophage) 500 mg PO BID [facility] Stop: 10/22/18 16:59 Last Admin: 08/24/18 17:06 Dose: Not Given Mirtazapine (Remeron) 15 mg PO HS [facility]; Protocol Stop: 10/22/18 20:59 Last Admin: 08/24/18 20:21 Dose: 15 mg Pneumococcal Polyvalent Vaccine (Pneumovax) 0.5 ml IM .ONCE ONE Stop: 08/26/18 09:01 Quetiapine Fumarate (Seroquel) 25 mg PO BID [facility]; Protocol Stop: 10/22/18 16:59 Last Admin: 08/25/18 10:58 Dose: 25 mg Simvastatin (Zocor) 20 mg PO QPM [facility]; Protocol Stop: 10/22/18 16:59 Last Admin: 08/24/18 17:06 Dose: Not Given Sodium Phosphate (Fleet Enema) 135 ml RC Q48H PRN PRN Reason: Constipation Stop: 10/22/18 14:11 Trazodone HCl (Desyrel) 25 mg PO HS [facility]; Protocol Stop: 10/22/18 20:59 Trimethoprim/Sulfamethoxazole (Bactrim Ds) 1 tab PO BID [facility] Stop: 10/24/18 08:59 Valproate Sodium (Depakene) 250 mg PO BID [facility]; Protocol Stop: 10/22/18 16:59 Last Admin: 08/24/18 17:07 Dose: Not Given General: weak, demented HEENT: NC/AT, PERRLA Neck: Supple Lungs: CTAB Cardiovascular: RRR, Normal S1, Normal S2 Abdomen: soft, non-tender, non-distended Neurological: alert - Procedures Procedures: Procedures Procedure Code Date INSERTION OF FEEDING DEVICE INTO STOMACH, ENDO [id number] 08/22/18 INSPECTION OF UPPER INTESTINAL TRACT, ENDO [id number] 08/22/18 Internal Medicine Assmt/Plan - Assessment Assessment: Htn Diabetes mellitus CAD Arthritis Dementia Chronic anemia Schizophrenia UTI - Plan Plan: continue abx as per id await for snf bed Nutritional Asmnt/Malnutr-PDOC - Dietary Evaluation Malnutrition Findings (Please click <Entered> for more info): Nutritional Asmnt/Malnutrition Start: 08/23/18 17: 34 Text: Status: Complete Freq: Protocol: Document 08/23/18 17:46 DAMIAN (Rec: 08/23/18 17:55 DAMIAN [email or web address]) Nutritional Asmnt/Malnutrition Patient General Information Nutritional Screening High Risk Diagnosis FTT, UTI Pertinent Medical Hx/Surgical Hx HTN, DM, CAD, arthiris, demneita, anemia Subjective Information Pt seen sitting up in bed at time of visit, confused. Family at bedside was trying to feed pt with pureed food but pt spit out all the bites. Family stated pt only drink one bottle of Ensure and juice today possible d/t pt very thristy. Family considers possible Gtube. Current Diet Order/ Nutrition Support pureed, low carb 45gm Pertinent Medications D5-0.45ns, colace, humalog, culturelle, levaquin, megace, glucophage, remeron, seroquel, vancomycin Pertinent Labs 08/23 Glucose 137 08/22 glucose 184 Nutritional Hx/Data Height 5 ft 4 in Height (Calculated Centimeters) 162.6 Current Weight (lbs) 100 lb Weight (Calculated Kilograms) 45.4 Weight (Calculated Grams) 89667.2 [place] Body Weight 120 Body Mass Index (BMI) 17.2 GI Symptoms GI Symptoms None Last BM not indicated Difficult in: None Skin Integrity/Comment: intact Current %PO Negligible < 25% Estimated Nutritional Goals BEE in Kcals: Using Current wt Calories/Kcals/Kg 27-30 Kcals Calculated 6364-8300 Protein: Using Current wt Protein g/k.2 Protein Calculated 54 Fluid: ml 1215-1440ml (1ml/kcal) Nutritional Problem 1. Problem Problem inadequate food intake Etiology confusion Signs/Symptoms: PO intake <25%, pt refused to eat Intervention/Recommendation Comments 1. Continue with current diet as ordered. Encourage oral intake. Add Ensure chocolate TID for extra kcal and protein . 2. Consider alternative nutrition route (Gtube) if PO intake continue <25%. 2. Monitor PO intake, wt, labs and skin integrity 3. F/U as high risk in 2-3 days Expected Outcomes/Goals Expected Outcomes/Goals 1. Pt to meet at least 75% of nutritional needs. 2. Wt stability, skin to remain intact, labs to approach WNL.
--- NOTE | 2018-08-25 13:28 | GI Progress Note ---
Subjective - Review of Systems Service Date: 08/25/18 Events since last encounter: no events, tolerating tube feeds well Objective - Results Result Diagrams: 08/24/18 05:00 08/24/18 05:00 Recent Labs: Laboratory Last Values WBC 8.4 Th/cmm (4.8-10.8) 08/24/18 05:00 RBC 3.48 Mil/cmm (3.80-5.20) L 08/24/18 05:00 Hgb 11.1 gm/dL (12-16) L 08/24/18 05:00 Hct 32.8 % (41.0-60) L 08/24/18 05:00 MCV 94.4 fl (81-100) 08/24/18 05:00 MCH 31.8 pg (27.0-31.0) H 08/24/18 05:00 MCHC Differential 33.7 pg (28.0-36.0) 08/24/18 05:00 RDW 13.4 % (11.5-20.0) 08/24/18 05:00 Plt Count 247 Th/cmm (150-400) 08/24/18 05:00 MPV 9.2 fl 08/24/18 05:00 Neutrophils % 67.4 % (40.0-80.0) 08/24/18 05:00 Lymphocytes % 21.3 % (20.0-50.0) 08/24/18 05:00 Monocytes % 9.5 % (2.0-10.0) 08/24/18 05:00 Eosinophils % 1.2 % (0.0-5.0) 08/24/18 05:00 Basophils % 0.6 % (0.0-2.0) 08/24/18 05:00 PT 10.4 SECONDS (9.5-11.5) 08/24/18 05:00 INR 1.00 (0.5-1.4) 08/24/18 05:00 PTT (Actin FS) 23.9 SECONDS (26.0-38.0) L 08/22/18 14:00 Sodium 139 mEq/L (136-145) 08/24/18 05:00 Potassium 3.8 mEq/L (3.5-5.1) 08/24/18 05:00 Chloride 104 mEq/L (98-107) 08/24/18 05:00 Carbon Dioxide 28.3 mEq/L (21.0-31.0) 08/24/18 05:00 Anion Gap 10.5 (7.0-16.0) 08/24/18 05:00 BUN 9 mg/dL (7-25) 08/24/18 05:00 Creatinine 0.6 mg/dL (0.6-1.2) 08/24/18 05:00 Est GFR ( Amer) TNP 08/24/18 05:00 Est GFR (Non-Af Amer) TNP 08/24/18 05:00 BUN/Creatinine Ratio 15.0 08/24/18 05:00 Glucose 145 mg/dL (70-105) H 08/24/18 05:00 POC Glucose 131 MG/DL (70 - 105) H 08/25/18 11:09 Calcium 9.0 mg/dL (8.6-10.3) 08/24/18 05:00 Total Bilirubin 0.5 mg/dL (0.3-1.0) 08/22/18 14:00 AST 17 U/L (13-39) 08/22/18 14:00 ALT 29 U/L (7-52) 08/22/18 14:00 Alkaline Phosphatase 70 U/L (34-104) 08/22/18 14:00 Total Protein 7.5 gm/dL (6.0-8.3) 08/22/18 14:00 Albumin 4.0 gm/dL (3.7-5.3) 08/22/18 14:00 Globulin 3.5 gm/dL 08/22/18 14:00 Albumin/Globulin Ratio 1.1 (1.0-1.8) 08/22/18 14:00 Triglycerides 157 mg/dL (<150) H 08/23/18 04:50 Cholesterol 125 mg/dL (<200) 08/23/18 04:50 LDL Cholesterol Direct 66 mg/dL (75-193) L 08/23/18 04:50 HDL Cholesterol 34 mg/dL (23-92) 08/23/18 04:50 Urine Source [place] 08/22/18 14:40 Urine Color YELLOW 08/22/18 14:40 Urine Clarity CLOUDY (CLEAR) H 08/22/18 14:40 Urine pH 8.5 (4.6 - 8.0) 08/22/18 14:40 Ur Specific [place] 1.010 (1.005-1.030) 08/22/18 14:40 Urine Protein 100 mg/dL (NEGATIVE) H 08/22/18 14:40 Urine Glucose (UA) NEGATIVE mg/dL (NEGATIVE) 08/22/18 14:40 Urine Ketones TRACE mg/dL (NEGATIVE) 08/22/18 14:40 Urine Blood NEGATIVE (NEGATIVE) 08/22/18 14:40 Urine Nitrate POSITIVE (NEGATIVE) H 08/22/18 14:40 Urine Bilirubin SMALL (NEGATIVE) H 08/22/18 14:40 Urine Urobilinogen 2.0 E.U./dL (0.2 - 1.0) 08/22/18 14:40 Ur Leukocyte Esterase LARGE (NEGATIVE) H 08/22/18 14:40 Urine RBC 0-2 /hpf (0-5) 08/22/18 14:40 Urine WBC 25-50 /hpf (0-5) H 08/22/18 14:40 Ur Epithelial Cells FEW /lpf (FEW) 08/22/18 14:40 Urine Bacteria MANY /hpf (NONE SEEN) H 08/22/18 14:40 Valproic Acid 65.7 ug/mL (50.0-100.0) 08/22/18 14:00 - Physical Exam Vitals and I&O: Vital Signs Temp 97.1 F 08/25/18 12:54 Pulse 80 08/25/18 12:54 Resp 18 08/25/18 12:54 BP 130/68 08/25/18 12:54 Pulse Ox 98 08/25/18 12:54 Intake & Output 08/24/18 08/25/18 08/25/18 18:59 06:59 18:59 Intake Total 1000 Output Total 350 800 Balance 1000 -350 -800 Weight (lbs) 47.128 kg 46.72 kg Intake: Intake, IV Amount 1000 D5-0.45NS 1,000 ml @ 100 1000 mls/hr IV .Q10H [facility] Rx#: [id number] Output: Urine 350 800 Other: # Bowel Movements 0 Weight Source Bedscale Bedscale Active Medications: Current Medications Acetaminophen (Tylenol) 650 mg PO Q4HR PRN PRN Reason: Pain or Fever >101 Stop: 10/22/18 14:11 Last Admin: 08/24/18 20:21 Dose: 650 mg Acetaminophen (Tylenol Extra Strength) 1,000 mg PO Q4HR PRN PRN Reason: Pain (Moderate) Stop: 10/22/18 14:11 Bisacodyl (Dulcolax 10 Mg Supp) 10 mg RC DAILY PRN PRN Reason: Constipation Stop: 10/22/18 14:11 Docusate Sodium (Colace) 100 mg PO DAILY [facility] Stop: 10/23/18 08:59 Last Admin: 08/25/18 10:59 Dose: Not Given Donepezil HCl (Aricept) 10 mg PO HS [facility] Stop: 10/22/18 20:59 Last Admin: 08/24/18 20:22 Dose: 10 mg Hydrochlorothiazide (Hctz) 25 mg PO DAILY [facility] Stop: 10/23/18 08:59 Last Admin: 08/25/18 11:00 Dose: 25 mg Dextrose/Sodium Chloride (D5-0.45ns) 1,000 mls @ 100 mls/hr IV .Q10H [facility] Stop: 10/21/18 19:59 Last Admin: 08/24/18 11:59 Dose: 100 mls/hr Insulin Human Lispro (Humalog Insulin Sliding Scale) 0 units SUBQ BIDAC [facility]; Protocol Stop: 10/22/18 16:29 Last Admin: 08/25/18 06:38 Dose: Not Given Lactobacillus Rhamnosus (Culturelle 15b) 1 each PO DAILY [facility] Stop: 10/23/18 08:59 Last Admin: 08/25/18 11:00 Dose: 1 each Lisinopril (Zestril) 10 mg PO DAILY [facility] Stop: 10/23/18 08:59 Last Admin: 08/25/18 11:00 Dose: 10 mg Magnesium Hydroxide (Milk Of Magnesia) 30 ml PO HS PRN PRN Reason: Constipation Stop: 10/22/18 14:11 Megestrol Acetate (Megace) 400 mg PO DAILY [facility] Stop: 10/23/18 08:59 Last Admin: 08/24/18 09:36 Dose: Not Given Memantine (Namenda) 5 mg PO BID [facility] Stop: 10/22/18 16:59 Last Admin: 08/24/18 17:06 Dose: Not Given Metformin HCl (Glucophage) 500 mg PO BID [facility] Stop: 10/22/18 16:59 Last Admin: 08/24/18 17:06 Dose: Not Given Mirtazapine (Remeron) 15 mg PO HS [facility]; Protocol Stop: 10/22/18 20:59 Last Admin: 08/24/18 20:21 Dose: 15 mg Pneumococcal Polyvalent Vaccine (Pneumovax) 0.5 ml IM .ONCE ONE Stop: 08/26/18 09:01 Quetiapine Fumarate (Seroquel) 25 mg PO BID [facility]; Protocol Stop: 10/22/18 16:59 Last Admin: 08/25/18 10:58 Dose: 25 mg Simvastatin (Zocor) 20 mg PO QPM [facility]; Protocol Stop: 10/22/18 16:59 Last Admin: 08/24/18 17:06 Dose: Not Given Sodium Phosphate (Fleet Enema) 135 ml RC Q48H PRN PRN Reason: Constipation Stop: 10/22/18 14:11 Trazodone HCl (Desyrel) 25 mg PO HS [facility]; Protocol Stop: 10/22/18 20:59 Trimethoprim/Sulfamethoxazole (Bactrim Ds) 1 tab PO BID [facility] Stop: 10/24/18 08:59 Valproate Sodium (Depakene) 250 mg PO BID [facility]; Protocol Stop: 10/22/18 16:59 Last Admin: 08/24/18 17:07 Dose: Not Given General: Alert HEENT: Atraumatic Neck: Supple, JVD Cardiovascular: Regular rate, Normal S1, Normal S2 Lungs: Clear to auscultation Abdomen: Bowel sounds - Procedures Procedures: Procedures Procedure Code Date INSERTION OF FEEDING DEVICE INTO STOMACH, ENDO [id number] 08/22/18 INSPECTION OF UPPER INTESTINAL TRACT, ENDO [id number] 08/22/18 Assessment/Plan - Problem List Patient Problems: All Active Problems WEAKNESS, FAILURE TO THRIVE (Acute) - Assessment Assessment: 1. Dysphagia 2. Dementia 3. protien calorie malnutrition -tolerating tube feeds well -advance slowly to goal -flush g tube with free water 50cc q6 hrs -check gastric residuals q6hrs and hold if >100cc -binder and G tube care - discussed with RN
--- NOTE | 2018-08-25 14:16 | Infectious Disease Prog Note ---
Infectious Disease Subjective - Review of Systems Service Date: 08/25/18 Subjective: There is no new change, no fever. Infectious Disease Objective - Results Result Diagrams: 08/24/18 05:00 08/24/18 05:00 Recent Labs: Laboratory Last Values WBC 8.4 Th/cmm (4.8-10.8) 08/24/18 05:00 RBC 3.48 Mil/cmm (3.80-5.20) L 08/24/18 05:00 Hgb 11.1 gm/dL (12-16) L 08/24/18 05:00 Hct 32.8 % (41.0-60) L 08/24/18 05:00 MCV 94.4 fl (81-100) 08/24/18 05:00 MCH 31.8 pg (27.0-31.0) H 08/24/18 05:00 MCHC Differential 33.7 pg (28.0-36.0) 08/24/18 05:00 RDW 13.4 % (11.5-20.0) 08/24/18 05:00 Plt Count 247 Th/cmm (150-400) 08/24/18 05:00 MPV 9.2 fl 08/24/18 05:00 Neutrophils % 67.4 % (40.0-80.0) 08/24/18 05:00 Lymphocytes % 21.3 % (20.0-50.0) 08/24/18 05:00 Monocytes % 9.5 % (2.0-10.0) 08/24/18 05:00 Eosinophils % 1.2 % (0.0-5.0) 08/24/18 05:00 Basophils % 0.6 % (0.0-2.0) 08/24/18 05:00 PT 10.4 SECONDS (9.5-11.5) 08/24/18 05:00 INR 1.00 (0.5-1.4) 08/24/18 05:00 PTT (Actin FS) 23.9 SECONDS (26.0-38.0) L 08/22/18 14:00 Sodium 139 mEq/L (136-145) 08/24/18 05:00 Potassium 3.8 mEq/L (3.5-5.1) 08/24/18 05:00 Chloride 104 mEq/L (98-107) 08/24/18 05:00 Carbon Dioxide 28.3 mEq/L (21.0-31.0) 08/24/18 05:00 Anion Gap 10.5 (7.0-16.0) 08/24/18 05:00 BUN 9 mg/dL (7-25) 08/24/18 05:00 Creatinine 0.6 mg/dL (0.6-1.2) 08/24/18 05:00 Est GFR ( Amer) TNP 08/24/18 05:00 Est GFR (Non-Af Amer) TNP 08/24/18 05:00 BUN/Creatinine Ratio 15.0 08/24/18 05:00 Glucose 145 mg/dL (70-105) H 08/24/18 05:00 POC Glucose 131 MG/DL (70 - 105) H 08/25/18 11:09 Calcium 9.0 mg/dL (8.6-10.3) 08/24/18 05:00 Total Bilirubin 0.5 mg/dL (0.3-1.0) 08/22/18 14:00 AST 17 U/L (13-39) 08/22/18 14:00 ALT 29 U/L (7-52) 08/22/18 14:00 Alkaline Phosphatase 70 U/L (34-104) 08/22/18 14:00 Total Protein 7.5 gm/dL (6.0-8.3) 08/22/18 14:00 Albumin 4.0 gm/dL (3.7-5.3) 08/22/18 14:00 Globulin 3.5 gm/dL 08/22/18 14:00 Albumin/Globulin Ratio 1.1 (1.0-1.8) 08/22/18 14:00 Triglycerides 157 mg/dL (<150) H 08/23/18 04:50 Cholesterol 125 mg/dL (<200) 08/23/18 04:50 LDL Cholesterol Direct 66 mg/dL (75-193) L 08/23/18 04:50 HDL Cholesterol 34 mg/dL (23-92) 08/23/18 04:50 Urine Source [place] 08/22/18 14:40 Urine Color YELLOW 08/22/18 14:40 Urine Clarity CLOUDY (CLEAR) H 08/22/18 14:40 Urine pH 8.5 (4.6 - 8.0) 08/22/18 14:40 Ur Specific [place] 1.010 (1.005-1.030) 08/22/18 14:40 Urine Protein 100 mg/dL (NEGATIVE) H 08/22/18 14:40 Urine Glucose (UA) NEGATIVE mg/dL (NEGATIVE) 08/22/18 14:40 Urine Ketones TRACE mg/dL (NEGATIVE) 08/22/18 14:40 Urine Blood NEGATIVE (NEGATIVE) 08/22/18 14:40 Urine Nitrate POSITIVE (NEGATIVE) H 08/22/18 14:40 Urine Bilirubin SMALL (NEGATIVE) H 08/22/18 14:40 Urine Urobilinogen 2.0 E.U./dL (0.2 - 1.0) 08/22/18 14:40 Ur Leukocyte Esterase LARGE (NEGATIVE) H 08/22/18 14:40 Urine RBC 0-2 /hpf (0-5) 08/22/18 14:40 Urine WBC 25-50 /hpf (0-5) H 08/22/18 14:40 Ur Epithelial Cells FEW /lpf (FEW) 08/22/18 14:40 Urine Bacteria MANY /hpf (NONE SEEN) H 08/22/18 14:40 Valproic Acid 65.7 ug/mL (50.0-100.0) 08/22/18 14:00 - Physical Exam Vitals and I&O: Vital Signs Temp 97.1 F 08/25/18 12:54 Pulse 80 08/25/18 12:54 Resp 18 08/25/18 12:54 BP 130/68 08/25/18 12:54 Pulse Ox 98 08/25/18 12:54 Intake & Output 08/24/18 08/25/18 08/25/18 18:59 06:59 18:59 Intake Total 1000 Output Total 350 800 Balance 1000 -350 -800 Weight (lbs) 47.128 kg 46.72 kg Intake: Intake, IV Amount 1000 D5-0.45NS 1,000 ml @ 100 1000 mls/hr IV .Q10H [facility] Rx#: [id number] Output: Urine 350 800 Other: # Bowel Movements 0 Weight Source Bedscale Bedscale Active Medications: Current Medications Acetaminophen (Tylenol) 650 mg PO Q4HR PRN PRN Reason: Pain or Fever >101 Stop: 10/22/18 14:11 Last Admin: 08/24/18 20:21 Dose: 650 mg Acetaminophen (Tylenol Extra Strength) 1,000 mg PO Q4HR PRN PRN Reason: Pain (Moderate) Stop: 10/22/18 14:11 Bisacodyl (Dulcolax 10 Mg Supp) 10 mg RC DAILY PRN PRN Reason: Constipation Stop: 10/22/18 14:11 Docusate Sodium (Colace) 100 mg PO DAILY [facility] Stop: 10/23/18 08:59 Last Admin: 08/25/18 10:59 Dose: Not Given Donepezil HCl (Aricept) 10 mg PO HS [facility] Stop: 10/22/18 20:59 Last Admin: 08/24/18 20:22 Dose: 10 mg Hydrochlorothiazide (Hctz) 25 mg PO DAILY [facility] Stop: 10/23/18 08:59 Last Admin: 08/25/18 11:00 Dose: 25 mg Dextrose/Sodium Chloride (D5-0.45ns) 1,000 mls @ 100 mls/hr IV .Q10H [facility] Stop: 10/21/18 19:59 Last Admin: 08/24/18 11:59 Dose: 100 mls/hr Insulin Human Lispro (Humalog Insulin Sliding Scale) 0 units SUBQ BIDAC [facility]; Protocol Stop: 10/22/18 16:29 Last Admin: 08/25/18 06:38 Dose: Not Given Lactobacillus Rhamnosus (Culturelle 15b) 1 each PO DAILY [facility] Stop: 10/23/18 08:59 Last Admin: 08/25/18 11:00 Dose: 1 each Lisinopril (Zestril) 10 mg PO DAILY [facility] Stop: 10/23/18 08:59 Last Admin: 08/25/18 11:00 Dose: 10 mg Magnesium Hydroxide (Milk Of Magnesia) 30 ml PO HS PRN PRN Reason: Constipation Stop: 10/22/18 14:11 Megestrol Acetate (Megace) 400 mg PO DAILY [facility] Stop: 10/23/18 08:59 Last Admin: 08/24/18 09:36 Dose: Not Given Memantine (Namenda) 5 mg PO BID [facility] Stop: 10/22/18 16:59 Last Admin: 08/24/18 17:06 Dose: Not Given Metformin HCl (Glucophage) 500 mg PO BID [facility] Stop: 10/22/18 16:59 Last Admin: 08/24/18 17:06 Dose: Not Given Mirtazapine (Remeron) 15 mg PO HS [facility]; Protocol Stop: 10/22/18 20:59 Last Admin: 08/24/18 20:21 Dose: 15 mg Pneumococcal Polyvalent Vaccine (Pneumovax) 0.5 ml IM .ONCE ONE Stop: 08/26/18 09:01 Quetiapine Fumarate (Seroquel) 25 mg PO BID [facility]; Protocol Stop: 10/22/18 16:59 Last Admin: 08/25/18 10:58 Dose: 25 mg Simvastatin (Zocor) 20 mg PO QPM [facility]; Protocol Stop: 10/22/18 16:59 Last Admin: 08/24/18 17:06 Dose: Not Given Sodium Phosphate (Fleet Enema) 135 ml RC Q48H PRN PRN Reason: Constipation Stop: 10/22/18 14:11 Trazodone HCl (Desyrel) 25 mg PO HS [facility]; Protocol Stop: 10/22/18 20:59 Trimethoprim/Sulfamethoxazole (Bactrim Ds) 1 tab PO BID [facility] Stop: 10/24/18 08:59 Valproate Sodium (Depakene) 250 mg PO BID [facility]; Protocol Stop: 10/22/18 16:59 Last Admin: 08/24/18 17:07 Dose: Not Given General: no acute distress, cachectic HEENT: atraumatic, normocephalic Neck: supple, no thyromegaly Cardiovascular: S1S2, regular Lungs: clear to auscultation bilaterally, clear to percussion Abdomen: soft, other (g tube), no tender Extremities: no cyanosis, no clubbing, no edema Neurological: awake, alert, oriented Skin: intact - Procedures Procedures: Procedures Procedure Code Date INSERTION OF FEEDING DEVICE INTO STOMACH, ENDO [id number] 08/22/18 INSPECTION OF UPPER INTESTINAL TRACT, ENDO [id number] 08/22/18 Infectious Disease Assmt/Plan - Problem List Patient Problems: All Active Problems WEAKNESS, FAILURE TO THRIVE (Acute) - Assessment Assessment: 1. UTI. 2. Protein calorie malnutrition. 3. HTN. 4. CAD. 5. Anemia. 6. Diabetes mellitus type 2. 7. Dementia 8. Schizophrenia. 9. Hypertension. 10. Osteoarthritis. 11. failure to thrive. 12. G tube placement. - Plan Plan: dc on bactrim ds 1 tab po bid for 7 more days (end date 08/31/2018). OK to Dc from ID point of view. Nutritional Asmnt/Malnutr-PDOC - Dietary Evaluation Malnutrition Findings (Please click <Entered> for more info): Nutritional Asmnt/Malnutrition Start: 08/23/18 17: 34 Text: Status: Complete Freq: Protocol: Document 08/23/18 17:46 LCHENG (Rec: 08/23/18 17:55 LCHENG [id number]) Nutritional Asmnt/Malnutrition Patient General Information Nutritional Screening High Risk Diagnosis FTT, UTI Pertinent Medical Hx/Surgical Hx HTN, DM, CAD, arthiris, demneita, anemia Subjective Information Pt seen sitting up in bed at time of visit, confused. Family at bedside was trying to feed pt with pureed food but pt spit out all the bites. Family stated pt only drink one bottle of Ensure and juice today possible d/t pt very thristy. Family considers possible Gtube. Current Diet Order/ Nutrition Support pureed, low carb 45gm Pertinent Medications D5-0.45ns, colace, humalog, culturelle, levaquin, megace, glucophage, remeron, seroquel, vancomycin Pertinent Labs 08/23 Glucose 137 08/22 glucose 184 Nutritional Hx/Data Height 1.63 m Height (Calculated Centimeters) 162.6 Current Weight (lbs) 45.359 kg Weight (Calculated Kilograms) 45.4 Weight (Calculated Grams) 51435.2 [place] Body Weight 120 Body Mass Index (BMI) 17.2 GI Symptoms GI Symptoms None Last BM not indicated Difficult in: None Skin Integrity/Comment: intact Current %PO Negligible < 25% Estimated Nutritional Goals BEE in Kcals: Using Current wt Calories/Kcals/Kg 27-30 Kcals Calculated 3045-7272 Protein: Using Current wt Protein g/k.2 Protein Calculated 54 Fluid: ml 1215-1440ml (1ml/kcal) Nutritional Problem 1. Problem Problem inadequate food intake Etiology confusion Signs/Symptoms: PO intake <25%, pt refused to eat Intervention/Recommendation Comments 1. Continue with current diet as ordered. Encourage oral intake. Add Ensure chocolate TID for extra kcal and protein . 2. Consider alternative nutrition route (Gtube) if PO intake continue <25%. 2. Monitor PO intake, wt, labs and skin integrity 3. F/U as high risk in 2-3 days Expected Outcomes/Goals Expected Outcomes/Goals 1. Pt to meet at least 75% of nutritional needs. 2. Wt stability, skin to remain intact, labs to approach WNL.
[2018-08-26] MEDS ORDERED: Pneumococcal Vaccine 0.5 mL Vial IM ONE (09:00)
== END 2018-08-25 18:30 | DRG 871 ==
LOC: ER 13:22 → TELE 17:20
PROVIDERS: ADMIT Internal Medicine; ATTEND Internal Medicine
PROC: 0DH63UZ Insertion of Feeding Device into Stomach, Percutaneous Approach (ICD-10-PCS; principal; 2018-08-24)
DX: A41.9 Sepsis, unspecified organism (principal); E41 Nutritional marasmus; N39.0 Urinary tract infection, site not specified; E44.0 Moderate protein-calorie malnutrition; Z68.1 Body mass index [BMI] 19.9 or less, adult; I10 Essential (primary) hypertension; E11.9 Type 2 diabetes mellitus without complications; I25.10 Atherosclerotic heart disease of native coronary artery without angina pectoris; M19.90 Unspecified osteoarthritis, unspecified site; F03.90 Unspecified dementia, unspecified severity, without behavioral disturbance, psychotic disturbance, mood disturbance, and anxiety; D64.9 Anemia, unspecified; F20.9 Schizophrenia, unspecified; R62.7 Adult failure to thrive; E86.0 Dehydration; Z79.84 Long term (current) use of oral hypoglycemic drugs; Z88.0 Allergy status to penicillin
CPT/HCPCS: 36415-UA; 71045-TC; 80048-TC; 80053-TC; 80061-TC; 80164-TC; 81001-TC; 82948-90; 83036-90; 85025-TC; 85610-TC; 85730-TC; 87086-90; 93005; J1956; J2704; J3370; J3480; J7030; J7040; Z7610

== ENCOUNTER 2019-01-07 21:02 | Inpatient (IN) | payer MEDICARE, MEDICAID ==
--- NOTE | 2019-01-07 21:25 | ED Physician Chart ---
ED Chief Complaint/HPI - Patient Information Date Seen:: 01/07/19 Time Seen:: 21:19 Chief Complaint:: g-tube malflunction History of Present Illness:: this is a chronically ill 78 yo female sent to this er for evaluation and treatment because of a malfunctioning g-tube. she is currently in a prison with many medical problems. she has diabetes, dementia,hypertension, coronary heart disease, she is uncooperative at times. Allergies:: Allergies Allergy/AdvReac Type Severity Reaction Status Date / Time Penicillins Allergy Unknown Verified 01/07/19 21:07 Vitals:: Vital Signs - 8 hr 01/07/19 21:05 Temp 98.1 F HR 64 RR 18 BP 116/74 O2 Sat % 93 Historian:: Medical Records Review:: Nurse's Note Reviewed, Old Chart Reviewed ED Review of Systems - Review of Systems General/Constitutional: No fever, No chills, No weight loss, No weakness, No diaphoresis, No edema, No loss of appetite, Other (this patient is unable to give a review of systems) Skin: No skin lesions, No rash, No bruising Head: No headache, No light-headedness Eyes: No loss of vision, No pain, No diplopia ENT: No earache, No nasal drainage, No sore throat, No tinnitus Neck: No neck pain, No swelling, No thyromegaly, No stiffness, No mass noted Cardio Vascular: No chest pain, No palpitations, No PND, No orthopnea, No edema Pulmonary: No SOB, No cough, No sputum, No wheezing GI: No nausea, No vomiting, No diarrhea, No pain, No melena, No hematochezia, No constipation, No hematemesis G/U: No dysuria, No frequency, No hematuria Musculoskeletal: No bone or joint pain, No back pain, No muscle pain Endocrine: No polyuria, No polydipsia Psychiatric: No prior psych history, No depression, No anxiety, No suicidal ideation Hematopoietic: No bruising, No lymphadenopathy Allergic/Immuno: No urticaria, No angioedema Neurological: No syncope, No focal symptoms, No weakness, No paresthesia, No headache, No seizure, No dizziness, No confusion, No vertigo ED Past Medical History - Past Medical History Obtainable: Yes Past Medical History: HTN, DM, CAD, Dementia Family History: None Social History: Non Smoker, No Alcohol, Care Facility Surgical History: None Psychiatricy History: Schizophrenia, Dementia Medication: Reviewed Family Medical History - Family Member Mother History Unknown: Yes Ethnicity: Living Status: Unknown Hx Family Cancer: No (unknown) Hx Family Coronary Artery Disease: No (unknown) Hx Family Congestive Heart Failure: No (unknown) Hx Family Hypertension: No (unknown) Hx Family Stroke: No (unknown) Hx Family Diabetes: No (unknown) Hx Family Seizures: No (unknown) Hx Family Dementia: No (unknown) Hx Family AIDS: No (unknown) Hx Family HIV: No Hx Family COPD: No (unknown) Hx Family Hepatitis: No (unknown) Hx Family Psychiatric Problems: No (unknown) Hx Family Tuberculosis: No (unknown) ED Physical Exam - Physical Examination General/Constitutional: Awake, Well-developed, well-nourished, Alert, No distress, GCS 15, Non-toxic appearing, Ambulatory Other Gen/Cons comments:: uncooperative and constantly screaming. Head: Atraumatic Eyes: Lids, conjuctiva normal, PERRL, EOMI Skin: Nl inspection, No rash, No skin lesions, No ecchymosis, Well hydrated, No lymphadenopathy ENMT: External ears, nose nl, Nasal exam nl, Lips, teeth, gums nl Neck: Nontender, Full ROM w/o pain, No JVD, No nuchal rigidity, No bruit, No mass, No stridor Respiratory: Nl effort/Exclusion, Clear to Auscultation, No Wheeze/Rhonchi/Rales Cardio Vascular: RRR, No murmur, gallop, rubs, NL S1 S2 GI: No tenderness/rebounding/guarding, No organomegaly, No hernia, Normal BS's, Nondistended, No mass/bruits, No McBurney tenderness Other GI comments:: malfunctioning g- tube : No CVA tenderness Extremities: No tenderness or effusion, Full ROM, normal strength in all extremities, No edema, Normal digits & nails Neuro/Psych: Alert/oriented, DTR's symmetric, Normal sensory exam, Normal motor strength, Judgement/insight normal, Mood normal, Normal gait, No focal deficits Misc: Normal back, No paraspinal tenderness ED Labs/Radiology/EKG Results - Lab Results Results: Abnormal Lab Results 01/07/19 01/07/19 01/07/19 21:30 21:30 21:30 WBC 8.6 RBC 3.91 Hgb 12.2 Hct 35.8 L MCV 91.8 MCH 31.3 H MCHC Differential 34.1 RDW 12.7 Plt Count 244 MPV 9.6 Neutrophils % 63.2 Lymphocytes % 27.9 Monocytes % 7.5 Eosinophils % 0.8 Basophils % 0.6 PT 9.8 INR 0.94 PTT (Actin FS) 24.1 L Sodium 139 Potassium 3.3 L Chloride 99 Carbon Dioxide 31.7 H Anion Gap 11.6 BUN 20 Creatinine 0.6 Est GFR ( Amer) TNP Est GFR (Non-Af Amer) TNP BUN/Creatinine Ratio 33.3 Glucose 116 H Calcium 9.6 Total Bilirubin 0.7 AST 15 ALT 9 Alkaline Phosphatase 76 Troponin I Total Protein 7.6 Albumin 3.7 Globulin 3.9 Albumin/Globulin Ratio 1.0 Urine Source Urine Color Urine Clarity Urine pH Ur Specific [place] Urine Protein Urine Glucose (UA) Urine Ketones Urine Blood Urine Nitrate Urine Bilirubin Urine Urobilinogen Ur Leukocyte Esterase Urine RBC Urine WBC Ur Epithelial Cells Urine Bacteria 01/07/19 01/07/19 21:30 22:00 WBC RBC Hgb Hct MCV MCH MCHC Differential RDW Plt Count MPV Neutrophils % Lymphocytes % Monocytes % Eosinophils % Basophils % PT INR PTT (Actin FS) Sodium Potassium Chloride Carbon Dioxide Anion Gap BUN Creatinine Est GFR ( Amer) Est GFR (Non-Af Amer) BUN/Creatinine Ratio Glucose Calcium Total Bilirubin AST ALT Alkaline Phosphatase Troponin I 0.01 Total Protein Albumin Globulin Albumin/Globulin Ratio Urine Source CLEAN C Urine Color YELLOW Urine Clarity CLEAR Urine pH 7.5 Ur Specific [place] 1.010 Urine Protein 30 H Urine Glucose (UA) NEGATIVE Urine Ketones NEGATIVE Urine Blood NEGATIVE Urine Nitrate NEGATIVE Urine Bilirubin NEGATIVE Urine Urobilinogen 1.0 Ur Leukocyte Esterase NEGATIVE Urine RBC 0-2 Urine WBC 0-2 Ur Epithelial Cells FEW Urine Bacteria FEW - Radiology Results Results: chest x-ray = nad - EKG Interpretations EKG Time:: 21:26 Rate & Rhythm: rate=85 sinus [place]: right axis ED Assessment - Assessment General Assessment: g-tube malfunctioning ED Septic Shock - . Is Septic Shock (SBP<90, OR Lactate>4 mmol\L) present?: No - <6hrs of presentation: Vital Signs: Vital Signs - 8 hr 01/07/19 21:05 Temp 98.1 F HR 64 RR 18 BP 116/74 O2 Sat % 93 ED Reassessment (Disposition) - Reassessment Reassessment Condition:: Unchanged - Diagnosis Diagnosis:: malfunction of the g-tube diabetes dementation - Patient Disposition Discharge/Transfer:: Acute Care w/in this hosp Admitting Medical Physician:: Maurice Decker Condition at Disposition:: Improved
[2019-01-07] MEDS ORDERED: Haloperidol Lactate 5 mg/mL 1mL Vial IM STA (21:31)
[2019-01-07] MEDS ORDERED: Haloperidol Lactate 5 mg/mL 1mL Vial ONE (21:38)
[2019-01-07 21:51] LABS: % BASOPHILS 0.6 % (0.0-2.0); % EOSINOPHILS 0.8 % (0.0-5.0); % LYMPHOCYTES 27.9 % (20.0-50.0); % MONOCYTES 7.5 % (2.0-10.0); % NEUTROPHILS 63.2 % (40.0-80.0); BASOPHILE ABSOLUTE 0.1 Th/cumm (0-0.2); EOSINOPHILE ABSOLUTE 0.1 Th/cmm (0.1-0.4); HEMATOCRIT 35.8 % (41.0-60); HEMOGLOBIN 12.2 gm/dL (12-16); LYMPHOCYTE ABSOLUTE 2.4 Th/cmm (1.5-3.0); MEAN CELL VOLUME 91.8 fl (81-100); MEAN CORPUSCULAR HEMOGLOBIN 31.3 pg (27.0-31.0); MEAN CORPUSCULAR HGB CONC 34.1 pg (28.0-36.0); MONOCYTE ABSOLUTE 0.6 Th/cmm (0.3-1.0); NEUTROPHILE ABSOLUTE 5.4 Th/cmm (1.8-8.0); PLATELET COUNT 244 Th/cmm (150-400); RED BLOOD COUNT 3.91 Mil/cmm (3.80-5.20); RED CELL DISTRIBUTION WIDTH 12.7 % (11.5-20.0); WHITE BLOOD COUNT 8.6 Th/cmm (4.8-10.8)
[2019-01-07 22:05] LABS: URINE SOURCE CLEAN C
[2019-01-07 22:05] LABS: INR 0.94 (0.5-1.4)
[2019-01-07 22:06] LABS: URINE BILIRUBIN NEGATIVE (NEGATIVE); URINE BLOOD NEGATIVE (NEGATIVE); URINE GLUCOSE (UA) NEGATIVE (NEGATIVE); URINE KETONE NEGATIVE (NEGATIVE); URINE LEUKOCYTE ESTERASE NEGATIVE (NEGATIVE); URINE NITRATE NEGATIVE (NEGATIVE); URINE PH 7.5 (4.6 - 8.0); URINE PROTEIN 30 mg/dL (NEGATIVE)
[2019-01-07 22:07] LABS: ALBUMIN 3.7 gm/dL (3.7-5.3); ALKALINE PHOSPHATASE 76 U/L (34-104); ANION GAP 11.6 (7.0-16.0); BILIRUBIN,TOTAL 0.7 mg/dL (0.3-1.0); BUN - UREA NITROGEN 20 mg/dL (7-25); CALCIUM SERUM 9.6 mg/dL (8.6-10.3); CARBON DIOXIDE 31.7 mEq/L (21.0-31.0); CHLORIDE 99 mEq/L (98-107); CREATININE - SERUM 0.6 mg/dL (0.6-1.2); GLUCOSE 116 mg/dL (70-105); POTASSIUM SERUM 3.3 mEq/L (3.5-5.1); SGOT 15 U/L (13-39); SGPT/ALT 9 U/L (7-52); SODIUM SERUM 139 mEq/L (136-145); TOTAL PROTEIN,SERUM 7.6 gm/dL (6.0-8.3)
[2019-01-07 22:16] LABS: URINE CLARITY CLEAR (CLEAR); URINE COLOR YELLOW; URINE EPITHELIAL CELLS FEW /lpf (FEW); URINE MICROSCOPIC INDICATED? YES; URINE RBC 0-2 /hpf (0-5); URINE WBC 0-2 /hpf (0-5)
[2019-01-07 22:17] LABS: URINE BACTERIA FEW /hpf (NONE SEEN)
[2019-01-08 00:40] VITALS: BP 136/65
[2019-01-08 06:57] LABS: % BASOPHILS 1.1 % (0.0-2.0); % EOSINOPHILS 2.2 % (0.0-5.0); % LYMPHOCYTES 28.4 % (20.0-50.0); % MONOCYTES 9.2 % (2.0-10.0); % NEUTROPHILS 59.1 % (40.0-80.0); BASOPHILE ABSOLUTE 0.1 Th/cumm (0-0.2); EOSINOPHILE ABSOLUTE 0.2 Th/cmm (0.1-0.4); HEMATOCRIT 34.9 % (41.0-60); HEMOGLOBIN 11.7 gm/dL (12-16); LYMPHOCYTE ABSOLUTE 2.2 Th/cmm (1.5-3.0); MEAN CELL VOLUME 92.6 fl (81-100); MEAN CORPUSCULAR HGB CONC 33.5 pg (28.0-36.0); MONOCYTE ABSOLUTE 0.7 Th/cmm (0.3-1.0); NEUTROPHILE ABSOLUTE 4.4 Th/cmm (1.8-8.0); PLATELET COUNT 224 Th/cmm (150-400); RED BLOOD COUNT 3.77 Mil/cmm (3.80-5.20); RED CELL DISTRIBUTION WIDTH 13.1 % (11.5-20.0); WHITE BLOOD COUNT 7.6 Th/cmm (4.8-10.8)
[2019-01-08 07:17] LABS: BUN - UREA NITROGEN 21 mg/dL (7-25); CALCIUM SERUM 9.4 mg/dL (8.6-10.3); CARBON DIOXIDE 33.7 mEq/L (21.0-31.0); CHLORIDE 98 mEq/L (98-107); CREATININE - SERUM 0.5 mg/dL (0.6-1.2); GLUCOSE 135 mg/dL (70-105); POTASSIUM SERUM 3.7 mEq/L (3.5-5.1); SODIUM SERUM 137 mEq/L (136-145)
[2019-01-08 07:19] LABS: INR 0.99 (0.5-1.4)
--- NOTE | 2019-01-08 08:55 | Diagnostic Imaging Report ---
CHEST X-RAY: AP view Indication: Pain COMPARISON: Chest x-ray 08/24/2018 06/17/2018 FINDINGS: There is a 5 mm calcified granuloma of the right midlung. There is elevation of the right hemidiaphragm. Heart size normal. Atherosclerosis is noted. Degenerative changes of the spine are noted. There appears to be a cardiac stent. Degenerative changes of the spine are noted. IMPRESSION: No focal consolidation identified. Calcified granuloma the right midlung again noted Atherosclerosis probable cardiac vascular stent. Please correlate with clinical history.
--- NOTE | 2019-01-08 09:56 | History and Physical ---
History of Present Illness - HPI Chief Complaint: G-Tube Malfunction. HPI: Ms. Rucker is a 78-yo female sent to this ER for evaluation and treatment because of a malfunctioning g-tube. Pt currently residing [facility]-term with many medical problems. Hx of DM, Dementia, HTN, CAD. Noted that pt is uncooperative at times. Vital Signs: Last Vital Signs Temp 96.9 F 01/08/19 09:21 Pulse 78 01/08/19 09:21 Resp 18 01/08/19 09:21 BP 134/76 01/08/19 09:21 Pulse Ox 100 01/08/19 09:21 Past Medical History Cardiovascular: Report: CAD, HTN Psych: Report: Schizophrenia Endocrine: Report: Diabetes Other History: Dementia Family Medical History - Family Member Mother History Unknown: Yes Ethnicity: Living Status: Unknown Hx Family Cancer: (Unknown) Hx Family Coronary Artery Disease: (Unknown) Hx Family Congestive Heart Failure: (Unknown) Hx Family Hypertension: (Unknown) Hx Family Stroke: (Unknown) Hx Family Diabetes: (Unknown) Hx Family Seizures: (Unknown) Hx Family Dementia: (Unknown) Hx Family AIDS: (Unknown) Hx Family HIV: No Hx Family COPD: (Unknown) Hx Family Hepatitis: (Unknown) Hx Family Psychiatric Problems: (Unknown) Hx Family Tuberculosis: (Unknown) Social History Smoke: No Alcohol: None Drugs: None Lives: Snf (Patient non-verbal during the interview.) - Medications Home Medications: Home Medication Medication Instructions Recorded Type Acetaminophen [Tylenol] 650 mg PO Q4HR PRN MDD 3gms 07/07/18 History Bisacodyl [Dulcolax 10 Mg Supp] 10 mg RC DAILY PRN 07/07/18 History Clopidogrel Bisulfate [Plavix] 75 mg PO DAILY 07/07/18 History Donepezil Hcl [Aricept] 10 mg PO HS 07/07/18 History Fleet Enema 135 ml RC Q48H PRN 07/07/18 History Hydrochlorothiazide [Hctz*] 25 mg PO DAILY 07/07/18 History Lisinopril 10 mg PO DAILY 07/07/18 History Memantine [Namenda] 5 mg PO BID 07/07/18 History Simvastatin [Zocor*] 20 mg PO QPM 07/07/18 History Acetaminophen [Tylenol Extra 1,000 mg PO Q4HR PRN MDD 3gms 07/24/18 History Strength] Cranberry Fruit Extract [Cranberry] 425 mg PO DAILY 07/24/18 History Mirtazapine [Remeron] 15 mg PO HS tab 07/27/18 Rx Aspirin [Aspirin Chewable] 81 mg PO DAILY 08/22/18 History Docusate Sodium [Colace] 100 mg PO DAILY 08/22/18 History - Allergies Allergies/Adverse Reactions: Allergies Allergy/AdvReac Type Severity Reaction Status Date / Time Penicillins Allergy Unknown Verified 01/07/19 21:07 Review of Systems - Review of Systems Constitutional: Report: No Significant Eyes: Report: No Significant Respiratory: Report: No Significant Cardiovascular: Report: No Significant Neurological: Report: No Significant Other: Patient non-verbal during this interview. Information obtained form medical record. Physical Exam - Physical Exam HEENT: Report: Ears Nose Throat within normal limits Neck: Report: Within normal limits Cardiovascular Systems: Report: +s1/s2 noted, Regular, Rate and Rhythm Respiratory: Report: Breath Sounds are within normal limits Abdomen: Report: Non-tender to palpation Extremities: Report: Non-tender to palpation., No pedal edema was noted on inspection Skin: Report: Color of skin is within normal limits - Lab Results All Lab Results last 24 hours: Laboratory Results - last 24 hr 01/07/19 01/07/19 01/07/19 21:30 21:30 21:30 WBC 8.6 RBC 3.91 Hgb 12.2 Hct 35.8 L MCV 91.8 MCH 31.3 H MCHC Differential 34.1 RDW 12.7 Plt Count 244 MPV 9.6 Neutrophils % 63.2 Lymphocytes % 27.9 Monocytes % 7.5 Eosinophils % 0.8 Basophils % 0.6 PT 9.8 INR 0.94 PTT (Actin FS) 24.1 L Sodium 139 Potassium 3.3 L Chloride 99 Carbon Dioxide 31.7 H Anion Gap 11.6 BUN 20 Creatinine 0.6 Est GFR ( Amer) TNP Est GFR (Non-Af Amer) TNP BUN/Creatinine Ratio 33.3 Glucose 116 H Calcium 9.6 Total Bilirubin 0.7 AST 15 ALT 9 Alkaline Phosphatase 76 Troponin I Total Protein 7.6 Albumin 3.7 Globulin 3.9 Albumin/Globulin Ratio 1.0 Urine Source Urine Color Urine Clarity Urine pH Ur Specific [place] Urine Protein Urine Glucose (UA) Urine Ketones Urine Blood Urine Nitrate Urine Bilirubin Urine Urobilinogen Ur Leukocyte Esterase Urine RBC Urine WBC Ur Epithelial Cells Urine Bacteria 01/07/19 01/07/19 01/08/19 21:30 22:00 06:48 WBC 7.6 RBC 3.77 L Hgb 11.7 L Hct 34.9 L MCV 92.6 MCH 31.0 MCHC Differential 33.5 RDW 13.1 Plt Count 224 MPV 9.4 Neutrophils % 59.1 Lymphocytes % 28.4 Monocytes % 9.2 Eosinophils % 2.2 Basophils % 1.1 PT INR PTT (Actin FS) Sodium Potassium Chloride Carbon Dioxide Anion Gap BUN Creatinine Est GFR ( Amer) Est GFR (Non-Af Amer) BUN/Creatinine Ratio Glucose Calcium Total Bilirubin AST ALT Alkaline Phosphatase Troponin I 0.01 Total Protein Albumin Globulin Albumin/Globulin Ratio Urine Source CLEAN C Urine Color YELLOW Urine Clarity CLEAR Urine pH 7.5 Ur Specific [place] 1.010 Urine Protein 30 H Urine Glucose (UA) NEGATIVE Urine Ketones NEGATIVE Urine Blood NEGATIVE Urine Nitrate NEGATIVE Urine Bilirubin NEGATIVE Urine Urobilinogen 1.0 Ur Leukocyte Esterase NEGATIVE Urine RBC 0-2 Urine WBC 0-2 Ur Epithelial Cells FEW Urine Bacteria FEW 01/08/19 01/08/19 06:48 06:48 WBC RBC Hgb Hct MCV MCH MCHC Differential RDW Plt Count MPV Neutrophils % Lymphocytes % Monocytes % Eosinophils % Basophils % PT 10.3 INR 0.99 PTT (Actin FS) 24.8 L Sodium 137 Potassium 3.7 Chloride 98 Carbon Dioxide 33.7 H Anion Gap 9.0 BUN 21 Creatinine 0.5 L Est GFR ( Amer) TNP Est GFR (Non-Af Amer) TNP BUN/Creatinine Ratio 42.0 Glucose 135 H Calcium 9.4 Total Bilirubin AST ALT Alkaline Phosphatase Troponin I Total Protein Albumin Globulin Albumin/Globulin Ratio Urine Source Urine Color Urine Clarity Urine pH Ur Specific [place] Urine Protein Urine Glucose (UA) Urine Ketones Urine Blood Urine Nitrate Urine Bilirubin Urine Urobilinogen Ur Leukocyte Esterase Urine RBC Urine WBC Ur Epithelial Cells Urine Bacteria - Assessment Assessment: G-Tube malfunction DM Dementia CAD HTN Hx Schizophrenia - Plan Plan: Continue current treatment plan. Monitor Labs.Continue current medications Continue to monitor VS Monitor Diet/Nutritional support. Pain Management. PT/OT prn Safety precaution, Fall precaution, frequent nursing round. Supportive care. Continue collaborating with consulting specialists, case management and nursing team. CONSULTS: GI - already contacted by nursing staff.
--- NOTE | 2019-01-08 16:20 | Operative Report ---
DATE OF SURGERY: 01/08/2019 PROCEDURE PERFORMED: G-tube change. ENDOSCOPIST: Bruce Suarez M.D. PREOPERATIVE DIAGNOSIS: G-tube malfunction. POSTOPERATIVE DIAGNOSIS: G-tube change. INDICATION: The patient is a 78-year-old female with schizophrenia, bipolar disorder, dysphagia with a G-tube, admitted to the hospital due to G-tube malfunction. PROCEDURE IN DETAIL: The patient was in the supine position. The old G-tube was easily found in the left upper quadrant. The skin around the G-tube site was healthy. This appeared to be a standard original type G-tube that had no internal balloon. Thus, using the traction method, the previous G-tube was pulled out through the gastrocutaneous fistula. There was some amount of resistance on pulling the tube likely due to gastrocutaneous fistula closure over time, although G-tube eventually did come out. There was a small amount of bleeding noted that stopped spontaneously. A new 20-Macedonian replacement type tube was inserted through the gastrocutaneous fistula without resistance and the internal balloon was inflated up to 20 mL. The external bumper was put into the correct location and gauze was put around the site of the old G-tube. At this point, the procedure was complete. RECOMMENDATIONS: 1. After confirmation with a KUB, the new G-tube can be used immediately for medications, water flushes, and tube feeding. 2. Abdominal binder at all times. Thank you for allowing me to participate in her care. We will see the patient as needed. JOB# [id number]
[2019-01-08] MEDS ORDERED: Diatrizoate Meglumine/Diatri 30 mL Sol ONE (18:46)
--- NOTE | 2019-01-09 09:45 | Diagnostic Imaging Report ---
Upper GI with Gastrografin HISTORY: G-tube confirmation COMPARISON: None FINDINGS: Program Lead view demonstrates generalized gas-filled loops of bowel with copious stool. Atherosclerosis is noted. The second image demonstrates contrast opacification of the stomach and small bowel loops. IMPRESSION: Intraluminal confirmation of patient's percutaneous gastric feeding tube. Copious stool. Atherosclerotic vascular disease.
--- NOTE | 2019-01-09 14:00 | Consultation ---
DATE OF CONSULTATION: 01/08/2019 CONSULTING PHYSICIAN: Dr. Decker. REASON FOR CONSULTATION: G-tube malfunction. HISTORY OF PRESENT ILLNESS: The patient is a 78-year-old female with the past medical history significant for schizophrenia, coronary artery disease, dementia, type 2 diabetes, hypertension, sent in from a nursing facility due to G-tube malfunction. The history is entirely obtained from the nursing staff and the chart as the patient is not able to give a history at the current time. Apparently, the equipment of the G-tube was malfunctioning and her nursing facility has been unable to feed the patient through the tube. The patient was seen in the ER and for some reason, the ER physician was unable to change the tube himself and thus admitted the patient for the GI consult. PAST MEDICAL HISTORY: Schizophrenia, coronary artery disease, hypertension, type 2 diabetes, dementia. PAST SURGICAL HISTORY: Placement of a G-tube in the past. FAMILY HISTORY: Noncontributory. SOCIAL HISTORY: The patient resides at a nursing facility. There is no history of alcoholism or illicit drug use or smoking. REVIEW OF SYSTEMS: Not possible given the patient is unable to fully participate in the interview. CURRENT MEDICATIONS: Haloperidol, Ativan. PHYSICAL EXAMINATION: VITAL SIGNS: Blood pressure is 128/69, pulse is 70 beats per minute, respiratory rate of 18, temperature 97.0, oxygenation 100%. GENERAL: The patient is lying on her back. Alert and oriented x1, does not appear to be in acute distress. HEAD, EARS, EYES, NOSE AND THROAT: Normocephalic, atraumatic appearing head. Pupils are equal and reactive. Extraocular muscles appear to be intact. Moist mucous membranes. NECK: Supple, no JVD, no thyromegaly. CHEST: Clear to auscultation bilaterally. CARDIOVASCULAR: S1, S2 are present, regular rate and rhythm. ABDOMEN: Soft. There is a G-tube in place in the left upper quadrant. The site appears clean, dry and intact. This looks to be an original type G-tube where a Garcia catheter that was converted to a G-tube. Skin around the site is not healthy appearing. EXTREMITIES: No edema. Pulses are not present. SKIN: No jaundice. LABORATORY DATA: White cell count 7.6, hemoglobin 11.7, platelet count is 224. INR 0.9. Sodium 137, bilirubin 0.7. IMAGING: No abdominal imaging has been performed. IMPRESSION: This is a 78-year-old female with history of schizophrenia, coronary artery disease, hypertension, type 2 diabetes, dementia, who was admitted to the hospital for G-tube malfunction. 1. Schizophrenia. 2. Dysphagia with the G-tube. 3. Dementia. 4. Coronary artery disease. DISCUSSION: This looks to be an original traction type G-tube and simply needs to be pulled out, so new tube can be put in. It is unclear to me why the ER physician was unable to do this or did not want to do this, but nevertheless, we were able to do this now. RECOMMENDATIONS: 1. We will plan for G-tube change at bedside as stated above. 2. The new tube can be used for medications, water flushes and tube feeds. This was confirmed with Radiology. 3. Abdominal binder at all times. 4. Management of the patient's other medical issues as per primary. Thank you for allowing me to participate in her care. Please call with any questions. JOB# [id number]
--- NOTE | 2019-01-16 13:25 | Discharge Summary ---
General Discharge Summary - Discharge Summary Date of Admission: 01/07/19 Admitting Diagnosis: G-tube malfunction. Discharge Date: 01/08/19 Discharge Diagnosis: G-tube repaired. Diabetes Mellitus-Stable. CAD-Treating, Stable. HTN-Treating, Stable. H/o Schizophrenia-Treating, well-controlled. Hospital Course: Hospital Course and Treatment Rendered: IV Antibiotics, Lab tests, Chest x-ray, EKG, Upper GI series. Monitor vitals, Pain management, Supportive care, Fall precaution, Monitor mental status, GI consult, ID consult and Psych consult. Adjustment of medication: IV Antibiotics. The course of hospitalization was uncomplicated and the course of the treatments was uneventful. CONSULT: GI consult, ID consult and Psych consult. Diagnostic Study (ies): Chest x-ray, EKG, Upper GI series. DISCHARGE CONDITION: Stable. Patient discharged to [facility]. Activity: Resume normal activity as tolerated. Diet: Resume previous diet. Medications: Please see medication reconciliation sheet. I will Follow-up with patient with in x 2 days. Discharge Instructions: Patient/Family instructed on diagnosis, follow-up, and diagnostic testing. Greater than 30 minutes was spent with patient on discharge. Health Concerns: G-tube malfunction. Assessment: G-tube repaired. Diabetes Mellitus-Stable. CAD-Treating, Stable. HTN-Treating, Stable. H/o Schizophrenia-Treating, well-controlled. Plan of Treatment: Patient discharged to [facility]. Activity: Resume normal activity as tolerated. Diet: Resume previous diet. Medications: Please see medication reconciliation sheet. I will Follow-up with patient with in x 2 days. Discharge Instructions: Patient/Family instructed on diagnosis, follow-up, and diagnostic testing. Greater than 30 minutes was spent with patient on discharge. Care Plan Goals: CPM Disposition: Discharge/Transfered to [facility] Home Medications: Home Medication Medication Instructions Recorded Type Acetaminophen [Tylenol] 650 mg PO Q4HR PRN MDD 3gms 07/07/18 History Bisacodyl [Dulcolax 10 Mg Supp] 10 mg RC DAILY PRN 07/07/18 History Clopidogrel Bisulfate [Plavix] 75 mg PO DAILY 07/07/18 History Donepezil Hcl [Aricept] 10 mg PO HS 07/07/18 History Fleet Enema 135 ml RC Q48H PRN 07/07/18 History Hydrochlorothiazide [Hctz*] 25 mg PO DAILY 07/07/18 History Lisinopril 10 mg PO DAILY 07/07/18 History Memantine [Namenda] 5 mg PO BID 07/07/18 History Simvastatin [Zocor*] 20 mg PO QPM 07/07/18 History Acetaminophen [Tylenol Extra 1,000 mg PO Q4HR PRN MDD 3gms 07/24/18 History Strength] Cranberry Fruit Extract [Cranberry] 425 mg PO DAILY 07/24/18 History Mirtazapine [Remeron] 15 mg PO HS tab 07/27/18 Rx Aspirin [Aspirin Chewable] 81 mg PO DAILY 08/22/18 History Docusate Sodium [Colace] 100 mg PO DAILY 08/22/18 History Activity: As Tolerated Discharge Diet: Other (Diet: Resume previous diet.) Consults and Follow-Up: Maurice Decker [Primary Care Provider] -
== END 2019-01-08 23:10 | DRG 393 ==
LOC: ER 21:02 → MSI 22:42
PROVIDERS: ADMIT Internal Medicine; ATTEND Internal Medicine
PROC: 0D20XUZ Change Feeding Device in Upper Intestinal Tract, External Approach (ICD-10-PCS; principal; 2019-01-08)
DX: K94.23 Gastrostomy malfunction (principal); R53.2 Functional quadriplegia; I10 Essential (primary) hypertension; R13.10 Dysphagia, unspecified; E11.9 Type 2 diabetes mellitus without complications; F03.90 Unspecified dementia, unspecified severity, without behavioral disturbance, psychotic disturbance, mood disturbance, and anxiety; I25.10 Atherosclerotic heart disease of native coronary artery without angina pectoris; F20.9 Schizophrenia, unspecified; Y83.8 Other surgical procedures as the cause of abnormal reaction of the patient, or of later complication, without mention of misadventure at the time of the procedure; Y92.89 Other specified places as the place of occurrence of the external cause
CPT/HCPCS: 36415-UA; 71045-TC; 80048-TC; 80053-TC; 81001-TC; 84484-TC; 85025-TC; 85610-TC; 85730-TC; 93005; 94760; 96374; J1630; J2060; Z7610